=== PATIENT | male | born 1975 | race Caucasian/White ===

== ENCOUNTER 2018-03-12 08:41 | Inpatient (IN) | payer MEDICARE, MEDICAID, SELFPAY ==
[2018-03-12] VITALS (13 sets, daily range): BP systolic 156–170; BP diastolic 92–113; PULSE 83–100; RESP 14–20; TEMP 36.6–37.1; O2SAT 92–98; BMI 32.3; BMI 32.1
--- NOTE | 2018-03-12 08:47 | ED.RN ---
PT STATES AFTER TRIAGE THAT OCCASSIONALLY HAS CHEST PRESSURE. EKG CALLED FOR PT MOVED BACK TO A ROOM
--- NOTE | 2018-03-12 08:58 | EKG12_ITS ---
Test Reason : CHEST PAIN Blood Pressure : / mmHG Vent. Rate : 090 BPM Atrial Rate : 090 BPM P-R Int : 158 ms QRS Dur : 116 ms QT Int : 402 ms P-R-T Axes : 041 -11 108 degrees QTc Int : 491 ms Normal sinus rhythm [address] & T wave abnormality, consider lateral ischemia Prolonged QT Abnormal ECG Confirmed by MANI BAILEY, ABBEY ([id number]), photograph editor RACHNA COWART ([id number]) on 03/14/2018 4:18:24 PM Referred By: KARINE Confirmed By:ABBEY SINGLETON MD
--- NOTE | 2018-03-12 09:07 | ED.VISSUMM ---
- ER Visit Summary Date of Service: 03/12/18 Chief Complaint: Shortness of breath History of Present Illness: The patient is a 42 M who presents with shortness of breath that has been getting worse over the past few days. Patient states that has been constant over the past few days. Patient states it is worse when he lay flat. Patient states it feels similar to prior episodes of congestive heart failure. Patient admits to some intermittent leg swelling. Patient has a history of kidney failure and congestive heart failure. Patient takes dialysis 3 days a week. Patient admits to a cough but denies any sputum. Patient denies any fevers or chills. Patient denies any chest pain. Physical Examination: Vital signs are stable. Patient is afebrile. Patient is in no acute distress. Oral mucosa is pink and moist. Neck is supple. Trachea is midline. There is no JVD noted. Heart was regular rate and rhythm. Lungs are clear and equal bilaterally. There is good respiratory effort noted. Abdomen is soft. Bowel sounds are normal. There is no tenderness. There is no rebound or guarding noted. Cranial nerves II through XII are intact. There are no focal motor or sensory deficits noted. The remaining physical exam is within normal limits. Test Results: EKG shows a normal sinus rhythm with a rate of 90. There is T wave inversion noted in the lateral leads. This is new compared to previous EKG dated 12/14/2016. Creatinine was elevated at 10.3. Electrolytes were normal. CBC was essentially within normal limits. Troponin was indeterminate. BNP was slightly elevated at 1366.1. PA and lateral chest x-ray showed mild congestive heart failure and pulmonary vascular congestion. Emergency Department Course and Treatment: Patient was given nitroglycerin paste and Lasix. Given the new T wave inversion and indeterminate troponin I felt that the patient should be admitted for further evaluation. Case was discussed with Dr. Reid. He will admit the patient to his service. He requested me to call his back closer to see if he could get dialysis today. Case was discussed with Dr. Vail. He will come in and see the patient in the hospital. Patient understood and was agreeable with the plan. All questions were answered. Disposition: Admit to hospital Impression: Congestive heart failure This note was generated with [employer] software. It may contain incorrect words, spelling, and punctuation that were not noted in review of the chart prior to signing ED Disposition - Plan for ED Patient: Disposition: Acute Care [facility] Chief Complaint: Shortness of Breath
[2018-03-12 09:13] LABS: Absolute Lymphocyte Count 1.09 X10^3/ul (0.83-4.51); Absolute Neutrophil Count 8.5 X10^3/uL (2.0-7.7); Basophil# 0.03 X10^3/uL; Basophil% 0.3 % (0-1); Eosinophil# 0.19 X10^3/uL; Eosinophils% 1.8 % (0-5); Hematocrit 25.7 % (40-54); Hemoglobin 8.3 g/dl (13.0-16.5); Lymphocyte # 1.09 X10^3/ul (4.0); Lymphocyte % 10.2 % (19-41); Mean Corp Hgb Conc 32.3 g/gl (32-36); Mean Corpuscular Hgb 31.1 pg (27.0-32.0); Mean Corpuscular Volume 96.3 fL (80-94); Mean Platelet Vol. 8.4 fl (6.2-12.0); Monocyte# 0.91 X10^3/uL; Monocyte% 8.5 % (0-10); Neutrophil # 8.45 X10^3/uL (2.7-7.7); Neutrophil % 78.8 % (47-70); POSITIVE COUNT NO; POSITIVE DIFFERENTIAL NO; POSITIVE MORPHOLOGY NO; Platelet Count 169 K/mm3 (150-450); RBC Distribution Width SD 45.6 fl (35.1-43.9); Red Blood Count 2.67 M/mm3 (4.6-6.2); White Blood Count 10.7 K/mm3 (4.4-11.0)
--- NOTE | 2018-03-12 09:22 | RAD_ITS ---
STUDY: X-RAY CHEST REASON FOR EXAM: Male, 42 years old. Shortness of breath. TECHNIQUE: PA and lateral views. COMPARISON: 12/14/2016. FINDINGS: Mild pulmonary interstitial edema. No confluent infiltrates. There is no demonstrated pleural abnormality. Mild cardiomegaly. Normal mediastinum and roberto. Pulmonary vascular congestion. Normal visualized aortic arch and descending thoracic aorta. Normal visualized thoracic spine. Normal visualized ribs, clavicles, and shoulders. There is no demonstrated abnormality of the visualized soft tissue structures of the upper abdomen. RAD/Chest PA and Lateral IMPRESSION: 1. Mild acute CHF with mild pulmonary interstitial edema. 2. No other additional findings or changes when compared to 12/14/2016. Electronically Signed: Jimmy Henderson MD at 9:43 EST , Service support ,
[2018-03-12 09:34] LABS: Anion Gap 10 (5-15); BUN 48 mg/dL (7-18); BUN/Creat Ratio 4.7 RATIO (10-20); Calcium,Total 8.1 mg/dL (8.5-10.1); Chloride 95 mmol/L (98-107); EST Glomerular Filtration Rate 6 mL/min (>60); Est Glom Filt Rate - Afr Amer 7 mL/min (>60); Estimated Creatinine Clearance 9.75 ml/min; Glucose 120 mg/dL (74-106); Potassium 3.7 mmol/L (3.5-5.1); Sodium Level 136 mmol/L (136-145)
[2018-03-12 09:41] LABS: BNP,B-Type NATRIURETIC PEPTIDE 1366.1 pg/mL (0-100)
--- NOTE | 2018-03-12 10:29 | NURSING ---
DR BEBE MILTON
[2018-03-12] MEDS: Nitroglycerin Oint 1 INCH PACKET TRANSDERM. (10:36)
[2018-03-12] MEDS: Furosemide 20 MG/2 ML VIAL IV (10:36)
--- NOTE | 2018-03-12 10:37 | NURSING ---
PCU CHF KITTOE
--- NOTE | 2018-03-12 10:52 | NURSING ---
DR MILLS, NEPHROLOGY, PAGED
--- NOTE | 2018-03-12 11:10 | PCM.HP.STD ---
Problem List (1) CHF (congestive heart failure) Status: Acute (2) HTN (hypertension) Status: Chronic (3) Obesity Status: Chronic (4) Poor dental hygiene Status: Chronic (5) Renal transplant recipient Status: Chronic (6) ESRD on dialysis Status: Chronic (7) Tobacco dependence Status: Chronic History of Present Illness Date of Admission: 03/12/18 Chief Complaint: Shortness of breath The patient is a 42 year old M with past medical history significant for end-stage renal disease on hemodialysis, retention who presented with shortness of breath. Patient has dialysis session was 2 days prior to his admission. Patient did notice increasing shortness of breath with minimal activity. He also did notice edema involving both lower extremities. He subsequently presented to the emergency department where chest x-ray demonstrated mild pulmonary interstitial edema consistent with CHF. Patient was started on Lasix his heel sorter contacted and admitted to a monitored bed for further management. Of note patient was also found to have elevated troponin he however denied any chest pain. Past Medical History Past Medical History (Chronic Problems): Chronic Problems ESRD on dialysis (Chronic) Tobacco dependence (Chronic) Renal transplant recipient (Chronic) Obesity (Chronic) HTN (hypertension) (Chronic) Poor dental hygiene (Chronic) Allergies Cusfdif-Chz-Wtr Reductase Inhibitor Allergy (Verified 03/12/18 08:44) Other Home Medications: Ambulatory Orders Medication Instructions Recorded Amlodipine [Norvasc] 5 mg PO DAILY 03/12/18 Calcium Acetate 667 mg PO TID 03/12/18 Carvedilol 25 mg PO 03/12/18 Cinacalcet HCl [Sensipar] 30 mg PO BID 03/12/18 Clonidine 1 each TD 03/12/18 Losartan Potassium 50 mg PO 03/12/18 Nut.tx,Impaired Renal Fxn,[place]hey 400 gm PO 03/12/18 [Emily Start] Surgical History: - - History of renal transplant Smoking Status: Current every day smoker - *Family History Maternal History Items: No pertinent history Paternal History Items: Cancer - Father of stomach cancer, No pertinent history Review of Systems Constitutional: Denies: Anorexia, Chills, Fever, Night Sweats, Weight Change HEENT: Denies: Head Aches, Sinus Congestion, Sinus Drainage Cardiovascular: Reports: Edema. Denies: Chest Pain, Orthopnea, Palpitations Respiratory: Reports: Shortness of Breath. Denies: Cough, Shortness of breath at rest Gastrointestinal: Denies: Abdominal Pain, Hematemesis, Hematochezia, Nausea, Melena Genitourinary: Denies: Dysuria, Frequency, Hematuria, Urgency Musculoskeletal: Denies: Joint Pain, Joint Tenderness Skin: Denies: Rash Neurological: Denies: Focal weakness, Numbness, Tingling Psychiatric: Denies: Homicidal Ideations, Suicidal Ideations Hematologic/ Lymphatic: Denies: Easy Bruising, Easy Bleeding VTE Information - Inpt Only VTE Present on Admission: No VTE Mechan Device Prophylaxis: Knee High MATIAS Hose VTE Pharm Prophylaxis ordered?: Yes Patient Problems: Active and Suspected Problems CHF (congestive heart failure) (Acute) Objective: GENERAL: cooperative HEENT: Atraumatic; moist oral mucosa EYES; Anicteric, Normal Conjunctiva NECK; supple, normal thyroid, RESPIRATORY: Diminished to auscultation bilaterally, CARDIOVASCULAR: Regular S1 S2, no audible murmurs GI: soft, non-tender, normoactive bowel sounds, : No Renal angle tenderness; EXTREMITIES: Bilateral trace edema, no clubbing, MUSCULOSKELETAL: No Joint Tenderness; no muscle waisting NEURO: Awake; no lateralizing signs. SKIN: No Rash PSYCH; Normal affect - Physical Exam Vital Signs Temp Pulse Resp BP Pulse Ox 97.9 F 86 19 H 166/113 H 92 03/12/18 08:42 03/12/18 10:42 03/12/18 10:42 03/12/18 10:42 03/12/18 10:42 Oxygen Delivery Method Room Air Weight: 102.058 kg Body Mass Index (BMI) 32.3 Laboratory Tests Past 24 Hrs 03/12/18 03/12/18 03/12/18 09:00 09:00 09:00 WBC 10.7 RBC 2.67 L Hgb 8.3 L Hct 25.7 L MCV 96.3 H MCH 31.1 MCHC 32.3 RDW 13.0 RDW Differential 45.6 H Plt Count 169 MPV 8.4 Immature Gran % (Auto) 0.400 Neut % (Auto) 78.8 H Lymph % (Auto) 10.2 L [place] % (Auto) 8.5 Eos % (Auto) 1.8 Baso % (Auto) 0.3 Absolute Neuts (auto) 8.5 H Absolute Lymphs (auto) 1.09 Total Counted Not Reportable Sodium 136 Potassium 3.7 Chloride 95 L Carbon Dioxide 31.0 Anion Gap 10 BUN 48 H Creatinine 10.30 H* Estim Creat Clear Calc 9.75 Est GFR (MDRD) Af Amer 7 L Est GFR (MDRD) Non-Af 6 L BUN/Creatinine Ratio 4.7 L Glucose 120 H Calcium 8.1 L Troponin I 0.052 H B-Natriuretic Peptide 1366.1 H Assessment/Plan All Active Problems CHF (congestive heart failure) (Acute) Metabolic acidosis (Resolved) Strep pharyngitis (Resolved) Acute sialoadenitis (Resolved) Severe sepsis (Resolved) Acute on chronic renal failure (Resolved) Patient is a 42-year-old gentleman with past medical history significant for end-stage renal disease currently on hemodialysis presented with progressive shortness of breath. Checks x-ray obtained on admission demonstrated pulmonary interstitial edema 1. Acute congestive heart failure suspected to be diastolic dysfunction: Patient has been admitted to a monitored bed started on Lasix drip. 2D echo ordered for EF assessment. Consultation placed to nephrology to assist in managing patient fluid overload with dialysis 2. End-stage renal disease with previous history of kidney transplant from living donor. Patient currently on hemodialysis on Mondays, Wednesdays and Tuesdays as stated above consultation was placed to patient's primary heel sorter 3. Elevated troponin suspected to be secondary to demand ischemia from patient CHF in addition to decreased clearance from patient renal failure patient currently does not have any chest pain EKG did not exhibit any acute changes. Admitted to monitored bed for continuous telemetry monitoring. Ordered serial cardiac enzymes as part of patient's evaluation 4. Hypertension-blood pressure controlled, home medications continued with dose adjustment as needed 5. Tobacco dependence counseled on cessation, offered nicotine patch for tobacco cravings 6. Obesity with BMI of 32 7. DVT prophylaxis SC heparin Code Visit Inpatient E&M: 58087 Init Hosp L3
--- NOTE | 2018-03-12 11:15 | HP.PCM_ITS ---
Problem List (1) CHF (congestive heart failure) Status: Acute (2) HTN (hypertension) Status: Chronic (3) Obesity Status: Chronic (4) Poor dental hygiene Status: Chronic (5) Renal transplant recipient Status: Chronic (6) ESRD on dialysis Status: Chronic (7) Tobacco dependence Status: Chronic History of Present Illness Date of Admission: 03/12/18 Chief Complaint: Shortness of breath The patient is a 42 year old M with past medical history significant for end- stage renal disease on hemodialysis, retention who presented with shortness of breath. Patient has dialysis session was 2 days prior to his admission. Patient did notice increasing shortness of breath with minimal activity. He also did notice edema involving both lower extremities. He subsequently presented to the emergency department where chest x-ray demonstrated mild pulmonary interstitial edema consistent with CHF. Patient was started on Lasix his face worker contacted and admitted to a monitored bed for further management. Of note patient was also found to have elevated troponin he however denied any chest pain. Past Medical History Past Medical History (Chronic Problems): Chronic Problems ESRD on dialysis (Chronic) Tobacco dependence (Chronic) Renal transplant recipient (Chronic) Obesity (Chronic) HTN (hypertension) (Chronic) Poor dental hygiene (Chronic) Allergies Tpobrfw-Omg-Yhm Reductase Inhibitor Allergy (Verified 03/12/18 08:44) Other Home Medications: Ambulatory Orders Medication Instructions Recorded Amlodipine [Norvasc] 5 mg PO DAILY 03/12/18 Calcium Acetate 667 mg PO TID 03/12/18 Carvedilol 25 mg PO 03/12/18 Cinacalcet HCl [Sensipar] 30 mg PO BID 03/12/18 Clonidine 1 each TD 03/12/18 Losartan Potassium 50 mg PO 03/12/18 Nut.tx,Impaired Renal Fxn,Whey 400 gm PO 03/12/18 [Emily Start] Surgical History: - - History of renal transplant Smoking Status: Current every day smoker - *Family History Maternal History Items: No pertinent history Paternal History Items: Cancer - Father of stomach cancer, No pertinent history Review of Systems Constitutional: Denies: Anorexia, Chills, Fever, Night Sweats, Weight Change HEENT: Denies: Head Aches, Sinus Congestion, Sinus Drainage Cardiovascular: Reports: Edema. Denies: Chest Pain, Orthopnea, Palpitations Respiratory: Reports: Shortness of Breath. Denies: Cough, Shortness of breath at rest Gastrointestinal: Denies: Abdominal Pain, Hematemesis, Hematochezia, Nausea, Melena Genitourinary: Denies: Dysuria, Frequency, Hematuria, Urgency Musculoskeletal: Denies: Joint Pain, Joint Tenderness Skin: Denies: Rash Neurological: Denies: Focal weakness, Numbness, Tingling Psychiatric: Denies: Homicidal Ideations, Suicidal Ideations Hematologic/ Lymphatic: Denies: Easy Bruising, Easy Bleeding VTE Information - Inpt Only VTE Present on Admission: No VTE Mechan Device Prophylaxis: Knee High MATIAS Hose VTE Pharm Prophylaxis ordered?: Yes Patient Problems: Active and Suspected Problems CHF (congestive heart failure) (Acute) Objective: GENERAL: cooperative HEENT: Atraumatic; moist oral mucosa EYES; Anicteric, Normal Conjunctiva NECK; supple, normal thyroid, RESPIRATORY: Diminished to auscultation bilaterally, CARDIOVASCULAR: Regular S1 S2, no audible murmurs GI: soft, non-tender, normoactive bowel sounds, : No Renal angle tenderness; EXTREMITIES: Bilateral trace edema, no clubbing, MUSCULOSKELETAL: No Joint Tenderness; no muscle waisting NEURO: Awake; no lateralizing signs. SKIN: No Rash PSYCH; Normal affect - Physical Exam Vital Signs Temp Pulse Resp BP Pulse Ox 97.9 F 86 19 H 166/113 H 92 03/12/18 08:42 03/12/18 10:42 03/12/18 10:42 03/12/18 10:42 03/12/18 10:42 Oxygen Delivery Method Room Air Weight: 102.058 kg Body Mass Index (BMI) 32.3 Laboratory Tests Past 24 Hrs 03/12/18 03/12/18 03/12/18 09:00 09:00 09:00 WBC 10.7 RBC 2.67 L Hgb 8.3 L Hct 25.7 L MCV 96.3 H MCH 31.1 MCHC 32.3 RDW 13.0 RDW Differential 45.6 H Plt Count 169 MPV 8.4 Immature Gran % (Auto) 0.400 Neut % (Auto) 78.8 H Lymph % (Auto) 10.2 L [place] % (Auto) 8.5 Eos % (Auto) 1.8 Baso % (Auto) 0.3 Absolute Neuts (auto) 8.5 H Absolute Lymphs (auto) 1.09 Total Counted Not Reportable Sodium 136 Potassium 3.7 Chloride 95 L Carbon Dioxide 31.0 Anion Gap 10 BUN 48 H Creatinine 10.30 H* Estim Creat Clear Calc 9.75 Est GFR (MDRD) Af Amer 7 L Est GFR (MDRD) Non-Af 6 L BUN/Creatinine Ratio 4.7 L Glucose 120 H Calcium 8.1 L Troponin I 0.052 H B-Natriuretic Peptide 1366.1 H Assessment/Plan All Active Problems CHF (congestive heart failure) (Acute) Metabolic acidosis (Resolved) Strep pharyngitis (Resolved) Acute sialoadenitis (Resolved) Severe sepsis (Resolved) Acute on chronic renal failure (Resolved) Patient is a 42-year-old gentleman with past medical history significant for end-stage renal disease currently on hemodialysis presented with progressive shortness of breath. Checks x-ray obtained on admission demonstrated pulmonary interstitial edema 1. Acute congestive heart failure suspected to be diastolic dysfunction: Patient has been admitted to a monitored bed started on Lasix drip. 2D echo ordered for EF assessment. Consultation placed to nephrology to assist in managing patient fluid overload with dialysis 2. End-stage renal disease with previous history of kidney transplant from living donor. Patient currently on hemodialysis on Mondays, Wednesdays and Tuesdays as stated above consultation was placed to patient's primary face worker 3. Elevated troponin suspected to be secondary to demand ischemia from patient CHF in addition to decreased clearance from patient renal failure patient currently does not have any chest pain EKG did not exhibit any acute changes. Admitted to monitored bed for continuous telemetry monitoring. Ordered serial cardiac enzymes as part of patient's evaluation 4. Hypertension-blood pressure controlled, home medications continued with dose adjustment as needed 5. Tobacco dependence counseled on cessation, offered nicotine patch for tobacco cravings 6. Obesity with BMI of 32 7. DVT prophylaxis SC heparin Code Visit Inpatient E&M: 50452 Init Hosp L3
--- NOTE | 2018-03-12 11:26 | ECHOD_ITS ---
Reason For Study: CHF Procedure This was a 2D Doppler, Color Flow transthoracic echocardiogram. Exam performed portable in patient room. Left Ventricle Normal LV size. Apical false tendon noted. Moderate concentric left ventricular hypertrophy. The estimated ejection fraction is 40 %. Mild global left ventricular systolic dysfunction. Compared to previous study, the left ventricular systolic function has worsened.. There is mild global hypokinesis of the left ventricle. Atria The left atrium is moderately enlarged. Normal right atrium. Mitral Valve Mild (1+) eccentric mitral valve insufficiency. Tricuspid Valve Normal tricuspid valve. Mild to moderate (1-2+) tricuspid valve insufficiency. Pulmonary artery systolic pressure is 61 mmHg. Moderate pulmonary hypertension. Aortic Valve Normal aortic valve. Trisinus/trileaflet aortic valve. Pulmonic Valve Normal pulmonic valve. Great Vessels Normal aortic root. The pulmonary artery is normal size. Normal inferior vena cava. Pericardium/Pleural No pericardial effusion. MMode/2D Measurements & Calculations LVIDd: 5.8 cm IVSd: 1.3 cm Ao root diam: 3.3 cm LVIDs: 4.7 cm LVPWd: 1.4 cm LA dimension: 4.4 cm RVDd: 4.4 cm FS: 19.9 % LAV(MOD-bp): 107.0 ml LVAd ap4: 50.1 cm2 SV(MOD-sp4): 103.7 ml LAV(MOD-bp) Indexed: 49.0 ml/m2 EDV(MOD-sp4): 222.8 ml LAV(MOD-sp2): 110.3 ml EDV(sp4-el): 232.7 ml LAV(MOD-sp4): 96.6 ml LVAs ap4: 33.9 cm2 ESV(MOD-sp4): 119.1 ml ESV(sp4-el): 120.5 ml EF(MOD-sp4): 46.5 % EF(sp4-el): 48.2 % SV(sp4-el): 112.2 ml LA A4 area: 28.1 cm2 RA A4 area: 19.8 cm2 Time Measurements MV dec time: 0.14 sec Doppler Measurements & Calculations MV E max semaj: 129.6 cm/sec Lat Peak E' Semaj: 9.0 cm/sec Med Peak E' Semaj: 6.2 cm/sec MV A max semaj: 51.6 cm/sec E/E' lat: 14.3 E/E' med: 20.9 MV E/A: 2.5 MV V2 max: 146.4 cm/sec MV P1/2t max semaj: 148.9 cm/sec Ao V2 max: 145.6 cm/sec MV max P.6 mmHg MV P1/2t: 47.8 msec Ao max P.5 mmHg MV V2 mean: 73.3 cm/sec Ao V2 mean: 88.1 cm/sec MV mean P.7 mmHg MV dec slope: 912.7 cm/sec2 Ao mean P.7 mmHg MV V2 VTI: 25.5 cm MVA(P1/2t): 4.6 cm2 Ao V2 VTI: 25.1 cm LV V1 max: 117.4 cm/sec MR max semaj: 599.8 cm/sec PA V2 max: 115.6 cm/sec LV V1 max P.5 mmHg MR max P.9 mmHg LV V1 mean P.6 mmHg LV V1 mean: 73.8 cm/sec LV V1 VTI: 21.0 cm TR max esmaj: 376.0 cm/sec TR max P.5 mmHg Interpretation Summary Normal LV size. Moderate concentric left ventricular hypertrophy. The estimated ejection fraction is 40 %. Compared to previous study, the left ventricular systolic function has worsened.. Pulmonary artery systolic pressure is 61 mmHg. Moderate pulmonary hypertension. Ordering Physician: Candelario Reid Performed By: Bi Quan RCS
[2018-03-12] MEDS: amLODIPine 5 MG Tablet PO (13:37)
[2018-03-12] MEDS: Carvedilol 25 MG Tablet PO ×2 (13:37→21:42)
[2018-03-12] MEDS: Cinacalcet HCl 30 MG Tablet PO ×2 (13:38→21:42)
[2018-03-12] MEDS: Heparin Injection (Vial) 5,000 UNIT/ML VIAL 5000 UNIT SC ×2 (13:41→21:42)
--- NOTE | 2018-03-12 16:25 | PCM.CONS.R ---
Problem List (1) ESRD on dialysis Status: Chronic Consultation - Renal 03/12/18 PCP/ Referring MD: Requesting physician: [] Primary care physician: No Primary Care Phys Reason for Consultation:: ESRD - History of Present Illness History of Present Illness: The patient is a 42 year old M ESRD MWF [facility] 3 L out admitted with mild to moderate SOB on oxygen sating well. - Allergies Allergies: Allergies Qmrabuz-Wdo-Wtd Reductase Inhibitor Allergy (Verified 03/12/18 08:44) Other - Current Medications Current Medications: Current Medications Acetaminophen (Tylenol) 650 mg PO Q6H PRN PRN PRN Reason: Mild Pain (scale 0-3)/T>100.7 Amlodipine Besylate (Norvasc) 5 mg PO DAILY [facility] Last Admin: 03/12/18 13:37 Dose: 5 mg Calcium Acetate (Phoslo Gel Cap) 667 mg PO TIDCM [facility] Last Admin: 03/12/18 13:38 Dose: Not Given Carvedilol (Coreg) 25 mg PO BID [facility] Last Admin: 03/12/18 13:37 Dose: 25 mg Cinacalcet (Sensipar) 30 mg PO BID [facility] Last Admin: 03/12/18 13:38 Dose: 30 mg Heparin Sodium (Porcine) (Heparin Na) 5,000 unit SC Q8 [facility] Last Admin: 03/12/18 13:41 Dose: 5,000 unit Furosemide 500 mg/ (Miscellaneous Information) 50 mls @ 1 mls/hr CONT INF .Q50H [facility] Last Admin: 03/12/18 12:01 Dose: 1 mls/hr Magnesium Hydroxide (Milk Of Magnesia) 30 ml PO DAILY PRN PRN PRN Reason: Constipation Sodium Chloride () 5 - 30 ml IV UD PRN PRN Reason: SALINE FLUSH - Past Medical History Past Medical History (Chronic Problems): Chronic Problems ESRD on dialysis (Chronic) Tobacco dependence (Chronic) Renal transplant recipient (Chronic) Obesity (Chronic) HTN (hypertension) (Chronic) Poor dental hygiene (Chronic) - Past Surgical History Surgical History: - - History of renal transplant - Social History Smoking Status: Current every day smoker - Family History Maternal History Items: No pertinent history Paternal History Items: Cancer - Father of stomach cancer, No pertinent history Review of Systems Constitutional: Denies: Chills, Fever, Weight Change HEENT: Denies: Head Aches, Sinus Congestion, Sinus Drainage Cardiovascular: Reports: Chest Pain, Chest Pressure, Chest Tightness, Orthopnea Respiratory: Reports: Shortness of Breath Gastrointestinal: Denies: Abdominal Pain, Nausea, Vomiting Genitourinary: Denies: Dysuria Musculoskeletal: Denies: Joint Pain, Joint Tenderness Skin: Denies: Rash, Wounds Neurological: Denies: Numbness, Tingling, Focal weakness Psychiatric: Denies: Anxiety, Depression, Homicidal Ideations, Suicidal Ideations Hematologic/ Lymphatic: Denies: Easy Bruising, Easy Bleeding Patient Problems: Active and Suspected Problems CHF (congestive heart failure) (Acute) - Physical Exam General: Alert, Oriented x3, Cooperative HEENT: Atraumatic Neck: Supple Lungs: Rales, Short of Breath Cardiovascular: Regular rate Abdomen: Bowel Sounds Present Vital Signs Temp Pulse Resp BP Pulse Ox 98.3 F 90 16 163/107 H 92 03/12/18 11:30 03/12/18 14:53 03/12/18 11:30 03/12/18 11:30 03/12/18 11:30 Oxygen Delivery Method Room Air Weight: 101.6 kg Body Mass Index (BMI) 32.1 Intake and Output for Last 24 Hours 03/10/18 03/11/18 03/12/18 23:59 23:59 23:59 Intake Total 50 / 50 Balance 50 / 50 Laboratory Tests Past 24 Hrs 03/12/18 03/12/18 03/12/18 09:00 09:00 09:00 WBC 10.7 RBC 2.67 L Hgb 8.3 L Hct 25.7 L MCV 96.3 H MCH 31.1 MCHC 32.3 RDW 13.0 RDW Differential 45.6 H Plt Count 169 MPV 8.4 Immature Gran % (Auto) 0.400 Neut % (Auto) 78.8 H Lymph % (Auto) 10.2 L [place] % (Auto) 8.5 Eos % (Auto) 1.8 Baso % (Auto) 0.3 Absolute Neuts (auto) 8.5 H Absolute Lymphs (auto) 1.09 Total Counted Not Reportable Sodium 136 Potassium 3.7 Chloride 95 L Carbon Dioxide 31.0 Anion Gap 10 BUN 48 H Creatinine 10.30 H* Estim Creat Clear Calc 9.75 Est GFR (MDRD) Af Amer 7 L Est GFR (MDRD) Non-Af 6 L BUN/Creatinine Ratio 4.7 L Glucose 120 H Calcium 8.1 L Troponin I 0.052 H B-Natriuretic Peptide 1366.1 H 03/12/18 03/12/18 11:46 15:02 WBC RBC Hgb Hct MCV MCH MCHC RDW RDW Differential Plt Count MPV Immature Gran % (Auto) Neut % (Auto) Lymph % (Auto) [place] % (Auto) Eos % (Auto) Baso % (Auto) Absolute Neuts (auto) Absolute Lymphs (auto) Total Counted Sodium Potassium Chloride Carbon Dioxide Anion Gap BUN Creatinine Estim Creat Clear Calc Est GFR (MDRD) Af Amer Est GFR (MDRD) Non-Af BUN/Creatinine Ratio Glucose Calcium Troponin I 0.062 H Pending B-Natriuretic Peptide Assessment/Plan All Active Problems CHF (congestive heart failure) (Acute) Metabolic acidosis (Resolved) Strep pharyngitis (Resolved) Acute sialoadenitis (Resolved) Severe sepsis (Resolved) Acute on chronic renal failure (Resolved) ESRD will do IUF/HD for 2 hrs try to take 2L and resume HD again in am. HTN controlled CKD MBD resume binders Anemia on CHRISTOPHER
--- NOTE | 2018-03-12 16:28 | CON.PCM_ITS ---
Problem List (1) ESRD on dialysis Status: Chronic Consultation - Renal 03/12/18 PCP/ Referring MD: Requesting physician: [] Primary care physician: No Primary Care Phys Reason for Consultation:: ESRD - History of Present Illness History of Present Illness: The patient is a 42 year old M ESRD MWF [facility] HD [facility] took 3 L out admitted with mild to moderate SOB on oxygen sating well. - Allergies Allergies: Allergies Rbkkwev-Ktr-Xhj Reductase Inhibitor Allergy (Verified 03/12/18 08:44) Other - Current Medications Current Medications: Current Medications Acetaminophen (Tylenol) 650 mg PO Q6H PRN PRN PRN Reason: Mild Pain (scale 0-3)/T>100.7 Amlodipine Besylate (Norvasc) 5 mg PO DAILY [facility] Last Admin: 03/12/18 13:37 Dose: 5 mg Calcium Acetate (Phoslo Gel Cap) 667 mg PO TIDCM [facility] Last Admin: 03/12/18 13:38 Dose: Not Given Carvedilol (Coreg) 25 mg PO BID [facility] Last Admin: 03/12/18 13:37 Dose: 25 mg Cinacalcet (Sensipar) 30 mg PO BID [facility] Last Admin: 03/12/18 13:38 Dose: 30 mg Heparin Sodium (Porcine) (Heparin Na) 5,000 unit SC Q8 [facility] Last Admin: 03/12/18 13:41 Dose: 5,000 unit Furosemide 500 mg/ (Miscellaneous Information) 50 mls @ 1 mls/hr CONT INF .Q50H [facility] Last Admin: 03/12/18 12:01 Dose: 1 mls/hr Magnesium Hydroxide (Milk Of Magnesia) 30 ml PO DAILY PRN PRN PRN Reason: Constipation Sodium Chloride () 5 - 30 ml IV UD PRN PRN Reason: SALINE FLUSH - Past Medical History Past Medical History (Chronic Problems): Chronic Problems ESRD on dialysis (Chronic) Tobacco dependence (Chronic) Renal transplant recipient (Chronic) Obesity (Chronic) HTN (hypertension) (Chronic) Poor dental hygiene (Chronic) - Past Surgical History Surgical History: - - History of renal transplant - Social History Smoking Status: Current every day smoker - Family History Maternal History Items: No pertinent history Paternal History Items: Cancer - Father of stomach cancer, No pertinent history Review of Systems Constitutional: Denies: Chills, Fever, Weight Change HEENT: Denies: Head Aches, Sinus Congestion, Sinus Drainage Cardiovascular: Reports: Chest Pain, Chest Pressure, Chest Tightness, Orthopnea Respiratory: Reports: Shortness of Breath Gastrointestinal: Denies: Abdominal Pain, Nausea, Vomiting Genitourinary: Denies: Dysuria Musculoskeletal: Denies: Joint Pain, Joint Tenderness Skin: Denies: Rash, Wounds Neurological: Denies: Numbness, Tingling, Focal weakness Psychiatric: Denies: Anxiety, Depression, Homicidal Ideations, Suicidal Ideations Hematologic/ Lymphatic: Denies: Easy Bruising, Easy Bleeding Patient Problems: Active and Suspected Problems CHF (congestive heart failure) (Acute) - Physical Exam General: Alert, Oriented x3, Cooperative HEENT: Atraumatic Neck: Supple Lungs: Rales, Short of Breath Cardiovascular: Regular rate Abdomen: Bowel Sounds Present Vital Signs Temp Pulse Resp BP Pulse Ox 98.3 F 90 16 163/107 H 92 03/12/18 11:30 03/12/18 14:53 03/12/18 11:30 03/12/18 11:30 03/12/18 11:30 Oxygen Delivery Method Room Air Weight: 101.6 kg Body Mass Index (BMI) 32.1 Intake and Output for Last 24 Hours 03/10/18 03/11/18 03/12/18 23:59 23:59 23:59 Intake Total 50 / 50 Balance 50 / 50 Laboratory Tests Past 24 Hrs 03/12/18 03/12/18 03/12/18 09:00 09:00 09:00 WBC 10.7 RBC 2.67 L Hgb 8.3 L Hct 25.7 L MCV 96.3 H MCH 31.1 MCHC 32.3 RDW 13.0 RDW Differential 45.6 H Plt Count 169 MPV 8.4 Immature Gran % (Auto) 0.400 Neut % (Auto) 78.8 H Lymph % (Auto) 10.2 L [place] % (Auto) 8.5 Eos % (Auto) 1.8 Baso % (Auto) 0.3 Absolute Neuts (auto) 8.5 H Absolute Lymphs (auto) 1.09 Total Counted Not Reportable Sodium 136 Potassium 3.7 Chloride 95 L Carbon Dioxide 31.0 Anion Gap 10 BUN 48 H Creatinine 10.30 H* Estim Creat Clear Calc 9.75 Est GFR (MDRD) Af Amer 7 L Est GFR (MDRD) Non-Af 6 L BUN/Creatinine Ratio 4.7 L Glucose 120 H Calcium 8.1 L Troponin I 0.052 H B-Natriuretic Peptide 1366.1 H 03/12/18 03/12/18 11:46 15:02 WBC RBC Hgb Hct MCV MCH MCHC RDW RDW Differential Plt Count MPV Immature Gran % (Auto) Neut % (Auto) Lymph % (Auto) [place] % (Auto) Eos % (Auto) Baso % (Auto) Absolute Neuts (auto) Absolute Lymphs (auto) Total Counted Sodium Potassium Chloride Carbon Dioxide Anion Gap BUN Creatinine Estim Creat Clear Calc Est GFR (MDRD) Af Amer Est GFR (MDRD) Non-Af BUN/Creatinine Ratio Glucose Calcium Troponin I 0.062 H Pending B-Natriuretic Peptide Assessment/Plan All Active Problems CHF (congestive heart failure) (Acute) Metabolic acidosis (Resolved) Strep pharyngitis (Resolved) Acute sialoadenitis (Resolved) Severe sepsis (Resolved) Acute on chronic renal failure (Resolved) ESRD will do IUF/HD for 2 hrs try to take 2L and resume HD again in am. HTN controlled CKD MBD resume binders Anemia on CHRISTOPHER
[2018-03-12] MEDS: Calcium Acetate 667 MG Capsule PO (16:40)
[2018-03-13] VITALS (14 sets, daily range): BP systolic 147–187; BP diastolic 74–118; PULSE 76–93; RESP 18–20; TEMP 36.7–36.9; O2SAT 92–98
[2018-03-13] MEDS: Heparin Injection (Vial) 5,000 UNIT/ML VIAL 5000 UNIT SC (06:08)
[2018-03-13 06:19] LABS: Hemoglobin 8.4 g/dl (13.0-16.5); Mean Corp Hgb Conc 32.3 g/gl (32-36); Mean Corpuscular Hgb 31.2 pg (27.0-32.0); Mean Corpuscular Volume 96.7 fL (80-94); Mean Platelet Vol. 9.1 fl (6.2-12.0); Platelet Count 185 K/mm3 (150-450); RBC Distribution Width CV 12.9 % (11.6-14.6); Red Blood Count 2.69 M/mm3 (4.6-6.2); White Blood Count 10.4 K/mm3 (4.4-11.0)
[2018-03-13 06:39] LABS: Scan Indicated on CBC? Y/N NO
[2018-03-13 06:43] LABS: Anion Gap 13 (5-15); BUN 62 mg/dL (7-18); Calcium,Total 7.8 mg/dL (8.5-10.1); Chloride 95 mmol/L (98-107); EST Glomerular Filtration Rate 5 mL/min (>60); Est Glom Filt Rate - Afr Amer 6 mL/min (>60); Estimated Creatinine Clearance 8.03 ml/min; Glucose 90 mg/dL (74-106); Potassium 4.1 mmol/L (3.5-5.1); Sodium Level 136 mmol/L (136-145)
--- NOTE | 2018-03-13 07:56 | PCM.PROGNOTE ---
Patient Problems: Active and Suspected Problems CHF (congestive heart failure) (Acute) Subjective: Chief complaint: Follow-up after admission for acute probably diastolic CHF and borderline elevated troponin. Patient seen and examined. No acute events overnight. Today, he mentioned that his breathing is getting better. Swelling of both ankles are also improving. Denied chest pain, palpitation, dizziness or lightheadedness. Denied abdominal pain, nausea vomiting. He is on IV Lasix drip. His blood pressure slightly elevated, other vital signs are stable. - Physical Exam General: Alert, Oriented x3, Cooperative, No apparent distress HEENT: Atraumatic, PERRLA, EOMI, Normocephalic Oral: Moist Mucosa, No Gingival or Mucosal Lesions/ Ulcerations Neck: Supple, No JVD, Negative Carotid Bruits, Trachea Midline, Thyroid Normal Size and Texture Lungs: No wheeze, No rales, Diminished, Rhonchi, - - Decreased breath sounds bilateral, mainly at the bases. Cardiovascular: Regular rate, Regular Rhythm, Normal S1, Normal S2, PMI Normal Abdomen: Bowel Sounds Present, Soft, Non Tender, Non-Distended, No Hepato-splenomegaly Extremities: No clubbing, No cyanosis, Edema - Trace edema. Skin: No rashes, No breakdown Lymphatic: No Cervical, Supraclavicular, or Inguinal Adenopathy Neurological: Cranial nerves II-XII grossly intact, Motor Exam 5/5 strength throughout Psych/Mental Status: Normal Affect, Appropriate, Alert and oriented to time, place, person, mood and affect Vital Signs Temp Pulse Resp BP Pulse Ox 98.1 F 83 20 H 161/103 H 92 03/13/18 02:32 03/13/18 02:58 03/13/18 02:32 03/13/18 02:32 03/13/18 02:32 Oxygen Flow Rate (L/min) 2 Oxygen Delivery Method Nasal Cannula Weight: 223 lb 15.834 oz Body Mass Index (BMI) 32.1 Intake and Output for Last 24 Hours 03/11/18 03/12/18 03/13/18 23:59 23:59 23:59 Intake Total 626 / 626 662 / 662 Output Total 125 / 125 125 / 125 Balance 501 / 501 537 / 537 Laboratory Tests Past 24 Hrs 03/12/18 03/12/18 03/12/18 09:00 09:00 09:00 WBC 10.7 RBC 2.67 L Hgb 8.3 L Hct 25.7 L MCV 96.3 H MCH 31.1 MCHC 32.3 RDW 13.0 RDW Differential 45.6 H Plt Count 169 MPV 8.4 Immature Gran % (Auto) 0.400 Neut % (Auto) 78.8 H Lymph % (Auto) 10.2 L [place] % (Auto) 8.5 Eos % (Auto) 1.8 Baso % (Auto) 0.3 Absolute Neuts (auto) 8.5 H Absolute Lymphs (auto) 1.09 Total Counted Not Reportable Sodium 136 Potassium 3.7 Chloride 95 L Carbon Dioxide 31.0 Anion Gap 10 BUN 48 H Creatinine 10.30 H* Estim Creat Clear Calc 9.75 Est GFR (MDRD) Af Amer 7 L Est GFR (MDRD) Non-Af 6 L BUN/Creatinine Ratio 4.7 L Glucose 120 H Calcium 8.1 L Troponin I 0.052 H B-Natriuretic Peptide 1366.1 H 03/12/18 03/12/18 03/13/18 11:46 15:02 05:18 WBC RBC Hgb Hct MCV MCH MCHC RDW RDW Differential Plt Count MPV Immature Gran % (Auto) Neut % (Auto) Lymph % (Auto) [place] % (Auto) Eos % (Auto) Baso % (Auto) Absolute Neuts (auto) Absolute Lymphs (auto) Total Counted Sodium 136 Potassium 4.1 Chloride 95 L Carbon Dioxide 28.0 Anion Gap 13 BUN 62 H Creatinine 12.50 H* Estim Creat Clear Calc 8.03 Est GFR (MDRD) Af Amer 6 L Est GFR (MDRD) Non-Af 5 L BUN/Creatinine Ratio 5.0 L Glucose 90 Calcium 7.8 L Troponin I 0.062 H 0.050 H B-Natriuretic Peptide 03/13/18 05:18 WBC 10.4 RBC 2.69 L Hgb 8.4 L Hct 26.0 L MCV 96.7 H MCH 31.2 MCHC 32.3 RDW 12.9 RDW Differential 45.0 H Plt Count 185 MPV 9.1 Immature Gran % (Auto) Neut % (Auto) Lymph % (Auto) [place] % (Auto) Eos % (Auto) Baso % (Auto) Absolute Neuts (auto) Absolute Lymphs (auto) Total Counted Sodium Potassium Chloride Carbon Dioxide Anion Gap BUN Creatinine Estim Creat Clear Calc Est GFR (MDRD) Af Amer Est GFR (MDRD) Non-Af BUN/Creatinine Ratio Glucose Calcium Troponin I B-Natriuretic Peptide Medical Necessity - Tobacco Use Smoking Status: Current every day smoker Tobacco Use: Cigarettes Assessment/Plan All Active Problems CHF (congestive heart failure) (Acute) This is a 42 years old male patient presented to the emergency room because of worsening shortness of breath, found to have acute probably diastolic CHF and borderline elevated troponin. #1 acute probably diastolic CHF/hypoxia: He is on IV Lasix drip, continued on Coreg. He is not on REYES inhibitors because of end-stage renal disease. He is not making significant amount of urine. His symptoms improved but still requiring oxygen. His BNP was elevated. 2D echocardiogram ordered. Nephrology consulted, plan for hemodialysis today, wean off oxygen as tolerated, ambulate. #2 borderline elevated troponin: Probably due to demand ischemia. Patient denies any chest pain. EKG without acute ischemic changes. Troponin is doing down. He is on Coreg. 2D echocardiogram ordered. #3 ESRD on hemodialysis: Patient on hemodialysis on Sundays, Wednesdays and Fridays. Nephrology consulted, plan for hemodialysis today. He is on calcium acetate and cinacalcet. #4 hypertension: Blood pressure is elevated. He is on Norvasc, Coreg and Lasix drip. He is going on the images at this time. Plan to monitor. #5 DVT prophylaxis: Low-risk patient, no prophylaxis indicated, ambulate. This note was generated with [employer] dictation software. It may contain incorrect words, spelling, and punctuation that were not noted in checking the note before signing. Code Visit Inpatient E&M: 16258 Subs Hosp L2
[2018-03-13] MEDS: Cinacalcet HCl 30 MG Tablet PO (08:27)
[2018-03-13] MEDS: Calcium Acetate 667 MG Capsule PO ×3 (08:27→16:26)
--- NOTE | 2018-03-13 11:52 | CASEMGMT ---
SW met w/pt for initial assessment and discharge plan. Pt receiving dialysis at present. PCP: No PCP at present, pt was seeing Dr. Haque and then stopped going once he started seeing the nephrologists. SW gave pt PCP list. Specialists: Nephrology at [facility] ([facility], [facility]). Pt has dialysis M,W,F, drives himself Preferred Pharmacy: [facility] Insurance: Medicare/Medicaid LW/POA: No LNOK: , her son Living arrangements, lives w/(65) and her son(47). Son has [place] Disease Transportation: Pt drives DME/HHC: No DME, no history of home health care. There are no homegoing needs anticipated, pt plans to return home at discharge w/support of . [employer], [employer]
--- NOTE | 2018-03-13 13:10 | DIALYSIS ---
Hemodialysis x 3.75 hours with 3K/2.5Ca bath; Removed = =-2500; LLAVF needles pulled; stasis complete; DSD applied; +bruit +thrill.
[2018-03-13] MEDS: amLODIPine 5 MG Tablet PO (15:22)
[2018-03-13] MEDS: Carvedilol 25 MG Tablet PO (15:23)
--- NOTE | 2018-03-13 16:20 | DCINST_ITS ---
- Discharge Diagnoses Current Active Problems: Current Active and Chronic Problems ESRD on dialysis (Chronic) CHF (congestive heart failure) (Acute) Tobacco dependence (Chronic) You will use the following diet at home:: Cardiac, Renal (restricted protein/sodium) Your food should be the consistency of: Regular Discharge Activity: Return to Normal Activity Weight Bearing Status: Full weight bearing Call your doctor if you observe: Fever of 101 or Higher, Shortness of breath, Dizziness, Fainting spells, Chest pain, Increased palpitations (irregular heartbeat), Uncontrolled pain Instructions: Controlling High Blood Pressure, Taking Your Blood Pressure Allergies/Adverse Reactions: Allergies Nybruqf-Lay-Frj Reductase Inhibitor Allergy (Verified 03/12/18 08:44) Other Medications to take at Discharge Calcium Acetate 667 mg PO TID 03/12/18 Carvedilol 25 mg PO BID 03/12/18 Cinacalcet HCl [Sensipar] 30 mg PO BID 03/12/18 Clonidine 1 each TD QWEEK 03/12/18 Losartan Potassium 50 mg PO BID 03/12/18 Amlodipine [Norvasc] 10 mg PO DAILY #30 tablet 03/13/18 The following prescriptions were given: Amlodipine [Norvasc] 10 mg PO DAILY #30 tablet Primary Care Physician: Care Physician,No Primary [Primary Care Provider] - Please follow up with your Primary Care Physician in: 1 week. Test Results: Test results from this visit will be discussed in further detail at your follow- up appointment, if applicable. Please Follow Up With: Yovana Lao MD When: please call his office. Please Follow Up With: Romeo Baeza MD When: 2 weeks.
--- NOTE | 2018-03-13 16:36 | DS.PCM_ITS ---
Discharge Date and Diagnosis Date of Admission: 03/12/18 Date of Discharge: 03/13/18 - Primary Discharge Diagnosis Active and Suspected Problems #1 acute diastolic CHF. #2 hypoxia. #3 borderline elevated troponin. #4 ESRD on hemodialysis. #5 uncontrolled hypertension. - Secondary Discharge Diagnosis Chronic Problems ESRD on dialysis (Chronic) Tobacco dependence (Chronic) Renal transplant recipient (Chronic) Obesity (Chronic) HTN (hypertension) (Chronic) Poor dental hygiene (Chronic) Hospital Course and Treatment Imaging Results: Clinical Impression(s) from Imaging Studies Chest X-Ray 03/12/18 09:22 IMPRESSION: 1. Mild acute CHF with mild pulmonary interstitial edema. 2. No other additional findings or changes when compared to 12/14/2016. Electronically Signed: Jimmy Henderson MD at 9:43 EST , Service support , Dr. Baeza, cardiology. Dr. Lao, nephrology. Operations: None Procedures: 2-D Echocardiogram, Dialysis, EKG Summary of Care Provided: Patient seen and examined on the day of discharge and appeared to be stable to be discharged home. After dialysis, patient felt much better, shortness of breath improved and he was able to maintain his pulse ox on room air. His blood pressure was elevated on his blood medications was adjusted. The patient is a 42 year old M admitted because of worsening shortness of breath and he was found to have acute diastolic CHF and borderline elevated troponin. His chest x-ray showed findings consistent with mild congestive heart failure. His EKG revealed no acute ischemic changes. His troponin was borderline elevated. Patient was treated with IV Lasix drip and he was not on REYES inhibitors because of end-stage renal disease. Nephrology consulted and patient underwent hemodialysis. After dialysis, patient symptoms improved and was able to came off oxygen. 2D echocardiogram done and revealed normal LV size, ejection fraction 40%, pulmonary artery pressure is 61 consistent with moderate pulmonary hypertension. Because of the slightly low ejection fraction and borderline elevated troponin, cardiology consulted. Dr. Baeza stated that his LV systolic dysfunction is due to uncontrolled hypertension. He recommended to control his blood pressure and to have a stress test done as outpatient. Patient discharged home in a stable medical condition, dose of Norvasc increased to 10 mg p.o. daily, continued on Coreg, losartan and clonidine patch, recommended to check blood pressure at least twice daily, follow-up with PCP in 1 week and follow-up with nephrology as scheduled, follow-up with cardiology in 2 weeks. - Physical Exam General: Alert, Oriented x3, Cooperative, No apparent distress HEENT: Atraumatic, PERRLA, EOMI, Normocephalic Oral: Moist Mucosa, No Gingival or Mucosal Lesions/ Ulcerations Neck: Supple, No JVD, Negative Carotid Bruits, Trachea Midline, Thyroid Normal Size and Texture Lungs: Clear to auscultation, No wheeze, No rales, Diminished, Rhonchi Cardiovascular: Regular rate, Regular Rhythm, Normal S1, Normal S2, PMI Normal Abdomen: Bowel Sounds Present, Soft, Non Tender, Non-Distended, No Hepato- splenomegaly Extremities: No clubbing, No cyanosis, Edema - Trace edema. Skin: No rashes, No breakdown Lymphatic: No Cervical, Supraclavicular, or Inguinal Adenopathy Neurological: Cranial nerves II-XII grossly intact, Motor Exam 5/5 strength throughout Psych/Mental Status: Normal Affect, Appropriate Vital Signs Temp Pulse Resp BP Pulse Ox 98.5 F 87 18 184/115 H 94 03/13/18 15:23 03/13/18 15:23 03/13/18 15:23 03/13/18 15:23 03/13/18 15:23 Oxygen Flow Rate (L/min) 2 Oxygen Delivery Method Room Air Weight: 218 lb 4.122 oz Body Mass Index (BMI) 32.1 Intake and Output for Last 24 Hours 03/11/18 03/12/18 03/13/18 23:59 23:59 23:59 Intake Total 626 / 626 662 / 662 Output Total 125 / 125 5150 / 5150 Balance 501 / 501 -4488 / -4488 Laboratory Tests Past 24 Hrs 03/13/18 03/13/18 05:18 05:18 WBC 10.4 RBC 2.69 L Hgb 8.4 L Hct 26.0 L MCV 96.7 H MCH 31.2 MCHC 32.3 RDW 12.9 RDW Differential 45.0 H Plt Count 185 MPV 9.1 Sodium 136 Potassium 4.1 Chloride 95 L Carbon Dioxide 28.0 Anion Gap 13 BUN 62 H Creatinine 12.50 H* Estim Creat Clear Calc 8.03 Est GFR (MDRD) Af Amer 6 L Est GFR (MDRD) Non-Af 5 L BUN/Creatinine Ratio 5.0 L Glucose 90 Calcium 7.8 L Discharge Activity: Return to Normal Activity Weight Bearing Status: Full weight bearing Call your doctor if you observe: Fever of 101 or Higher, Shortness of breath, Dizziness, Fainting spells, Chest pain, Increased palpitations (irregular heartbeat), Uncontrolled pain Home Medications: Medications to take at Discharge Calcium Acetate 667 mg PO TID 03/12/18 Carvedilol 25 mg PO BID 03/12/18 Cinacalcet HCl [Sensipar] 30 mg PO BID 03/12/18 Clonidine 1 each TD QWEEK 03/12/18 Losartan Potassium 50 mg PO BID 03/12/18 Amlodipine [Norvasc] 10 mg PO DAILY #30 tablet 03/13/18 Following Prescrptions Were Given to Patient: Amlodipine [Norvasc] 10 mg PO DAILY #30 tablet Primary Care Physician: Care Physician,No Primary [Primary Care Provider] - Please follow up with your Primary Care Physician in: 1 week. Please Follow Up With: Yovana Lao MD When: please call his office. Please Follow Up With: Romeo Baeza MD When: 2 weeks. Patient Instructions: Controlling High Blood Pressure, Taking Your Blood Pressure Disposition: Home Minutes spent on discharge:: 32 Patient Condition:: Stable Medical Necessity - Tobacco Use Smoking Status: Current every day smoker Tobacco Use: Cigarettes Meaningful Use Info Meaningful Use Diagnoses (Choose all that apply): CHF - CHF REYES/ARB ordered at discharge?: No Reason REYES/ARB not ordered?: Worsening renal function Documented LVEF (%): 40 Code Visit Inpatient E&M: 25371 Disch Hosp
--- NOTE | 2018-03-13 16:43 | CON.PCM_ITS ---
Reason for Consult Date of Consultation: 03/13/18 Reason for Consultation: Shortness of breath. Abnormal cardiac enzymes History of Present Illness: The patient is a 42 year old M past medical history of severe hypertension status post renal transplant in 2008 which subsequently failed and patient currently on hemodialysis. He presented to the emergency room because he was noted to be short of breath. He was scheduled and had a dialysis performed. An echocardiogram was performed to assess his left ventricular function his ejection fraction was noted to be 45%. He has had no dizziness or diaphoresis no near syncope or syncope. As part of his workup he had blood work done which demonstrated mildly abnormal cardiac enzymes. When he presented his blood pressure was noted to be approximately 180 systolic. At this particular time he appears to be stable. He was seen by nephrology as well. [] Past Medical History Allergies/Adverse Reactions: Allergies Oyzzwfj-Boo-Iay Reductase Inhibitor Allergy (Verified 03/12/18 08:44) Other Home Medications: Ambulatory Orders Medication Instructions Recorded Calcium Acetate 667 mg PO TID 03/12/18 Carvedilol 25 mg PO BID 03/12/18 Cinacalcet HCl [Sensipar] 30 mg PO BID 03/12/18 Clonidine 1 each TD QWEEK 03/12/18 Losartan Potassium 50 mg PO BID 03/12/18 Amlodipine [Norvasc] 10 mg PO DAILY #30 tablet 03/13/18 Past Medical History (Chronic Problems): Chronic Problems ESRD on dialysis (Chronic) Tobacco dependence (Chronic) Renal transplant recipient (Chronic) Obesity (Chronic) HTN (hypertension) (Chronic) Poor dental hygiene (Chronic) Surgical History: - - History of renal transplant - *Family History Maternal History Items: No pertinent history Paternal History Items: Cancer - Father of stomach cancer, No pertinent history Smoking Status: Current every day smoker Tobacco Use: Cigarettes Alcohol: None Drugs: None Review of Systems - Review of Systems General: Denies: Fever, Night Sweats, Fatigue HEENT: Denies: Vision Change Cardiovascular: Reports: Shortness of Breath, Shortness of Breath at Rest. Denies: Chest Discomfort, Orthopnea, PND, Peripheral Edema, Palpitations, Lightheadedness, Dizziness, Near Syncope, Syncope Respiratory: Denies: Cough, Sputum Production, Hemoptysis Gastrointestinal: Denies: Indigestion, Hematemesis, Hematochezia, Melena Genitourinary: Denies: Dysuria, Hematuria Muscoloskeletal: Denies: Myalgias Skin: Denies: Rash Neurological: Denies: Dizziness Psychiatric: Denies: Anxiety Endocrine: Denies: Unexplained Weight Loss Hematologic/ Lymphatic: Reports: Anemia Subjectve: Pleasant gentleman in no apparent distress Objective: Vital Signs Temp Pulse Resp BP Pulse Ox 98.5 F 87 18 169/74 H 94 03/13/18 16:35 03/13/18 16:35 03/13/18 16:35 03/13/18 16:35 03/13/18 16:35 Oxygen Flow Rate (L/min) 2 Oxygen Delivery Method Room Air Weight: 218 lb 4.122 oz Body Mass Index (BMI) 32.1 Intake and Output for Last 24 Hours 03/11/18 03/12/18 03/13/18 23:59 23:59 23:59 Intake Total 626 / 626 662 / 662 Output Total 125 / 125 5150 / 5150 Balance 501 / 501 -4488 / -4488 General: Awake, Alert, Oriented x 3 HEENT: PERRL, EOMI, Sclera Non Icteric Neck: Supple, Good ROM, No Lymph Node Enlargement Lungs: Clear to auscultation Cardiovascular: Regular Rhythm, Normal S1, Normal S2, No Murmurs, No Rubs, No Gallops Vascular: No Carotid Bruits, Normal Femoral Pulses, Normal Radial Pulses, Normal Dorsalis Pedal Pulse, Normal Posterior Tibial Pulses Abdomen: Bowel Sounds Present, Soft, Non Tender, No HSM, No Organomegaly Extremities: No Cyanosis, No Clubbing, No edema Musculoskeletal: No Erythema Skin: No Rashes Lymphatic: No Lymph Node Enlargement Neurological: No Focal Motor or Sensory Deficit 03/13/18 05:18: Sodium 136, Potassium 4.1, Chloride 95 L, Carbon Dioxide 28.0, Anion Gap 13, BUN 62 H, Creatinine 12.50 H*, Est GFR (MDRD) Af Amer 6 L, Est GFR (MDRD) Non-Af 5 L, BUN/Creatinine Ratio 5.0 L, Glucose 90, Calcium 7.8 L 03/13/18 05:18: WBC 10.4, RBC 2.69 L, Hgb 8.4 L, Hct 26.0 L, MCV 96.7 H, MCH 31.2, MCHC 32.3, RDW 12.9, RDW Differential 45.0 H, Plt Count 185, MPV 9.1 Rhythm: EKG: Normal sinus rhythm with T wave inversions noted in V4 and V5 ECHO: Global reduction in left ventricular systolic function estimated to be 45% Assessment/Plan 1. Acute diastolic heart failure * Patient presents with acute shortness of breath and is noted to have diastolic heart failure with an elevated natruretic peptide level. He underwent dialysis today and is currently feeling much better. My recommendation is to continue the current packing and adjust his dry weight as per the nephrology service. As you know he does not make any urine and therefore diuresis is not paramount here. * He does have evidence of left ventricular systolic dysfunction which I think is due to the uncontrolled hypertension. 2. Hypertension * His blood pressure is suboptimally controlled. Will leave it to nephrology to aggressively treat the above. 3. Abnormal cardiac enzymes He has mildly abnormal cardiac enzymes but with the very severe blood pressure elevation I suspect this is secondary to demand ischemia. His left ventricular ejection fraction reduction is global. I would recommend that we control his blood pressure better and then schedule him for a stress test as an outpatient. I have explained the above to him he understands and agrees to proceed. Thank you for allowing me to participate in the care of your patient. Please don't hesitate to call if any issues arise
[2018-03-13] MEDS: hydrALAZINE 20 MG/ML Vial 10 MG IV (16:56)
[2018-03-13] MEDS: 0.9% NaCl Peripheral Flush Adult/Peds IV (16:56)
--- NOTE | 2018-03-13 16:57 | PCM.PN.REN ---
Patient Problems: Active and Suspected Problems CHF (congestive heart failure) (Acute) Subjective: Pt was seen during HD session today. He is tolerating the session well No nausea No vomiting. No SOB. No CP - Physical Exam General: Alert, Oriented x3 HEENT: Atraumatic Oral: Moist Mucosa Neck: Supple, No JVD Lungs: Clear to auscultation, Normal air movement, No rhonchi Cardiovascular: Regular rate, Regular Rhythm, Normal S1, Normal S2 Abdomen: Bowel Sounds Present, Soft, Non Tender Extremities: No clubbing, No cyanosis, No edema Skin: No rashes Musculoskeletal: No Tenderness to Palpation of Joints or Extremities Lymphatic: No Cervical, Supraclavicular, or Inguinal Adenopathy Neurological: Cranial nerves II-XII grossly intact, Neuro grossly intact Psych/Mental Status: Normal Affect Vital Signs Temp Pulse Resp BP Pulse Ox 98.5 F 84 18 169/74 H 94 03/13/18 16:35 03/13/18 16:56 03/13/18 16:35 03/13/18 16:35 03/13/18 16:35 Oxygen Flow Rate (L/min) 2 Oxygen Delivery Method Room Air Weight: 99 kg Body Mass Index (BMI) 32.1 Intake and Output for Last 24 Hours 03/11/18 03/12/18 03/13/18 23:59 23:59 23:59 Intake Total 626 / 626 662 / 662 Output Total 125 / 125 5150 / 5150 Balance 501 / 501 -4488 / -4488 Laboratory Tests Past 24 Hrs 03/13/18 03/13/18 05:18 05:18 WBC 10.4 RBC 2.69 L Hgb 8.4 L Hct 26.0 L MCV 96.7 H MCH 31.2 MCHC 32.3 RDW 12.9 RDW Differential 45.0 H Plt Count 185 MPV 9.1 Sodium 136 Potassium 4.1 Chloride 95 L Carbon Dioxide 28.0 Anion Gap 13 BUN 62 H Creatinine 12.50 H* Estim Creat Clear Calc 8.03 Est GFR (MDRD) Af Amer 6 L Est GFR (MDRD) Non-Af 5 L BUN/Creatinine Ratio 5.0 L Glucose 90 Calcium 7.8 L Medical Necessity - Tobacco Use Smoking Status: Current every day smoker Tobacco Use: Cigarettes Assessment/Plan All Active Problems CHF (congestive heart failure) (Acute) 1-ESRD on MWF. Pt goes to [facility] [place] in [place] HD session :BQ 400 DQ 600 UF 3L HD access is LUE AVF 2- HTN: BP is uncontrolled. Please resume home BP at discharged. Asked the patient to monitor his BP at home 3- Acute diastolic HF. Better. Improved with UF Pt received UF session yesterday of 5L d/c lasix drip. Pt is anuric 4-Anemia: will resume CHRISTOPHER at HD unit Ok to d/c patient from nephro stand point if BP < 160/90 MINA HO MD
== END 2018-03-13 17:30 | disposition home or self-care (01) | DRG 291 ==
LOC: ED 10:25 → PCU 10:47
PROVIDERS: Admitting Provider Internal Medicine; Emergency Provider Emergency Medicine; Visit Provider Hospitalist
DX: I13.2 Hypertensive heart and chronic kidney disease with heart failure and with stage 5 chronic kidney disease, or end stage renal disease (principal); N18.6 End stage renal disease; I50.31 Acute diastolic (congestive) heart failure; T86.12 Kidney transplant failure; E66.9 Obesity, unspecified; Z99.2 Dependence on renal dialysis; F17.210 Nicotine dependence, cigarettes, uncomplicated; D64.9 Anemia, unspecified; R09.02 Hypoxemia; R74.8 Abnormal levels of other serum enzymes; Z68.32 Body mass index [BMI] 32.0-32.9, adult
CPT/HCPCS: 36415; 71046; 80048; 83880; 84484; 85025; 85027; 90937; 93005; 93306; 97802; 99283; 99406; J1756; A4216; G0257; J1940

== ENCOUNTER → 2018-04-07 17:10 | Outpatient (CLI) | payer SELFPAY ==
[2018-03-31 11:10] VITALS: BMI 39.9
[2018-04-07 17:20] LABS: Hemoglobin 7.2 g/dl (13.0-16.5)
== END ==
PROVIDERS: Visit Provider Internal Medicine Nephrology
DX: D64.9 Anemia, unspecified (principal)
CPT/HCPCS: 85018

== ENCOUNTER 2018-09-21 22:17 | Observation (INO) | payer MEDICARE, SELFPAY ==
[2018-03-31 11:10] VITALS: BMI 39.9
[2018-09-21 22:18] VITALS: BP 165/111; PULSE 104; RESP 18; TEMP 37.7; O2SAT 100; BMI 30.7
--- NOTE | 2018-09-21 23:12 | CT_ITS ---
HISTORY: Upper abdominal pain, hypertension, end-stage renal disease on dialysis, history of right renal transplant. COMPARISON: None. TECHNIQUE: Helical CT axial images from the lung bases to the pubic symphysis without IV contrast. No oral contrast was administered. Multiplanar reconstruction. A radiation dose optimization technique was used for this scan. # of images incl. paperwork: [id number] FINDINGS: LUNG BASES: Trace right pleural effusion. No left pleural effusion. No basilar consolidation. LIVER: Hepatomegaly. No focal masses. Mild perihepatic free fluid. HEPATOBILIARY: No calcified gallstones. No intra- or extrahepatic ductal dilatation. SPLEEN: Mild splenomegaly measuring up to 14.4 cm. Mild perisplenic free fluid. PANCREAS: Unremarkable. ADRENAL GLANDS: Unremarkable. KIDNEYS: Severe bilateral [place] kidney atrophy. Right iliac fossa renal transplant without hydronephrosis. BOWEL AND MESENTERY: Moderate volume ascites. There is moderate wall thickening of the junction of descending and sigmoid colon and proximal sigmoid colon with surrounding subjacent diverticula. Further characterization limited given the degree of ascites. No small or large bowel dilatation. The appendix is not identified, and may be surgically absent No abnormal mesenteric lymphadenopathy. No pneumoperitoneum. RETROPERITONEUM:Normal caliber abdominal aorta without aneurysm. Mild ASVD. Mild retroperitoneal lymphadenopathy in the aortocaval distribution with the largest lymph node measuring 1.4 cm as seen on series 2, image 106. PELVIS:Urinary bladder is suboptimally distended.Nonenlarged prostate gland. ABDOMINAL WALL: Moderate subcutaneous edema. BONES: No suspicious osseous lytic or blastic lesions seen. CT/Abdomen/Pelvis without Cont IMPRESSION: 1. Moderate volume ascites. Moderate anasarca. Trace right pleural effusion. 2. Moderate wall thickening of the junction of descending and sigmoid colon with findings which may represent superimposed diverticulitis. This is incompletely assessed given the degree of ascites. 3. Transplant kidney right iliac fossa without hydronephrosis. Severe bilateral [place] renal atrophy. 4. Hepatosplenomegaly. Individualized dose optimization techniques were used for this CT. at 0024 Reported and signed by: Arsh Lauren MD Electronically Signed: Arsh Lauren MD at 0:23 EDT Tel , Service support ,
--- NOTE | 2018-09-21 23:13 | ED.VIS.GEN ---
History of Present Illness Chief Complaint: Abd Pain Narrative: She is a 43-year-old male who presents with abdominal pain. It began earlier today and gradually worsened to the day. Patient complains of mild distention. He describes his pain is aching. He rates it a 7-8 out of 10. He had one episode of nonbloody nonbilious emesis shortly before presentation here. He has a prior history of renal transplant as well as a history of ureteral rupture and associated surgical intervention. He is also had some mild diarrhea today. Past Medical History - Allergies and Home Meds Allergies/Adverse Reactions: Allergies Wpegqfq-Ial-Fak Reductase Inhibitor Allergy (Verified 09/21/18 22:20) Other Primary Care Physician: Care Physician,No Primary [Primary Care Provider] - Past Medical History: - - End-stage renal disease, hypertension Surgical History: - - History of renal transplant, surgery for ureteral rupture - Family History Maternal Family History: Reports: No pertinent history Paternal Family History: Reports: Cancer - Father of stomach cancer, No pertinent history Review of Systems All systems negative except as indicated Cardiovascular: Denies: Chest pain Respiratory: Denies: Dyspnea, Cough Gastrointestinal: Reports: Abdominal pain, Nausea, Vomiting, Diarrhea Physical Exam Vital Signs/Narrative: Vital Signs Temp Pulse Resp BP Pulse Ox 09/21/18 22:18 99.8 F H 104 H 18 165/111 H 100 General: Well nourished Head: Normocephalic Eyes: EOMI ENT: Moist mucous membranes Neck: Supple Cardiovascular: Regular rate, Regular rhythm Respiratory: No distress, CTA bilaterally Abdomen: Soft, - - Mild diffuse tenderness, mild distention, no guarding, no rebound, normal bowel sounds Skin: Normal color Neurological: Alert Psychological: Normal affect Diagnostic/Tx/Re-eval Impressions Abdomen/Pelvis CT 09/21/18 23:12 IMPRESSION: 1. Moderate volume ascites. Moderate anasarca. Trace right pleural effusion. 2. Moderate wall thickening of the junction of descending and sigmoid colon with findings which may represent superimposed diverticulitis. This is incompletely assessed given the degree of ascites. 3. Transplant kidney right iliac fossa without hydronephrosis. Severe bilateral [place] renal atrophy. 4. Hepatosplenomegaly. Individualized dose optimization techniques were used for this CT. at 0024 Reported and signed by: Arsh Lauren MD Electronically Signed: Arsh Lauren MD at 0:23 EDT Tel , Service support , 09/21/18 23:12 CT Abd [Abdomen/Pelvis without Cont] [CT] Stat Laboratory Results 09/21/18 09/21/18 23:16 23:16 WBC 10.3 RBC 3.49 L Hgb 11.7 L Hct 36.0 L MCV 103.2 H MCH 33.5 H MCHC 32.5 RDW 14.3 RDW Differential 54.1 H Plt Count 127 L MPV 10.3 Immature Gran % (Auto) 0.100 Neut % (Auto) 92.8 H Lymph % (Auto) 2.1 L [place] % (Auto) 4.7 Eos % (Auto) 0.2 Baso % (Auto) 0.1 Absolute Neuts (auto) 9.5 H Absolute Lymphs (auto) 0.22 L Total Counted Not Reportable Sodium 134 L Potassium 3.9 Chloride 95 L Carbon Dioxide 31.0 Anion Gap 8 BUN 39 H Creatinine 7.71 H* Estim Creat Clear Calc 12.89 Est GFR (MDRD) Af Amer 10 L Est GFR (MDRD) Non-Af 8 L BUN/Creatinine Ratio 5.1 L Glucose 108 H Calcium 9.3 Total Bilirubin 2.80 H Direct Bilirubin 1.77 H AST 12 L ALT 22 Alkaline Phosphatase 262 H Total Protein 6.9 Albumin 3.2 Globulin 3.7 Lipase 97 - Medical Decision Making Patient was treated with IV fluids, morphine, Zofran. He is only had mild improvement of pain on reevaluation. Labs are notable for mild elevation of bilirubin and alkaline phosphatase. CT of the abdomen pelvis shows ascites and findings most likely representing diverticulitis. There is no biliary dilatation. On reevaluation he is still complaining of significant pain was given additional morphine. He was also given IV Zosyn for diverticulitis. He will be discussed with the hospitalist and admitted. ED Disposition - Plan for ED Patient: Disposition: Home or Assisted Living Diagnosis: Diverticulitis, Elevated bilirubin Referrals: Care Physician,No Primary [Primary Care Provider] -
[2018-09-21] MEDS: Ondansetron 4 MG/2 ML Vial IV (23:24)
[2018-09-21] MEDS: Morphine 4 MG/ML Syringe IV (23:25)
[2018-09-21 23:27] LABS: Absolute Lymphocyte Count 0.22 X10^3/ul (0.83-4.51); Absolute Neutrophil Count 9.5 X10^3/uL (2.0-7.7); Basophil# 0.01 X10^3/uL; Basophil% 0.1 % (0-1); Differential Indicated SCAN CRITERIA MET; Eosinophil# 0.02 X10^3/uL; Eosinophils% 0.2 % (0-5); Hemoglobin 11.7 g/dl (13.0-16.5); Lymphocyte # 0.22 X10^3/ul (4.0); Lymphocyte % 2.1 % (19-41); Mean Corp Hgb Conc 32.5 g/gl (32-36); Mean Corpuscular Hgb 33.5 pg (27.0-32.0); Mean Corpuscular Volume 103.2 fL (80-94); Mean Platelet Vol. 10.3 fl (6.2-12.0); Monocyte# 0.48 X10^3/uL; Monocyte% 4.7 % (0-10); Neutrophil # 9.52 X10^3/uL (2.7-7.7); Neutrophil % 92.8 % (47-70); POSITIVE COUNT NO; POSITIVE DIFFERENTIAL YES; POSITIVE MORPHOLOGY NO; Platelet Count 127 K/mm3 (150-450); RBC Distribution Width CV 14.3 % (11.6-14.6); RBC Distribution Width SD 54.1 fl (35.1-43.9); Red Blood Count 3.49 M/mm3 (4.6-6.2); White Blood Count 10.3 K/mm3 (4.4-11.0)
[2018-09-21 23:44] LABS: AST(SGOT) 12 U/L (15-37); Alanine Aminotransfer ALT/SGPT 22 U/L (16-61); Albumin, Serum 3.2 g/dL (3.2-5.0); Alkaline Phosphatase 262 U/L (45-117); Anion Gap 8 (5-15); BUN 39 mg/dL (7-18); BUN/Creat Ratio 5.1 RATIO (10-20); Bilirubin, Direct 1.77 mg/dL (0.00-0.30); Calcium,Total 9.3 mg/dL (8.5-10.1); Chloride 95 mmol/L (98-107); Creatinine, Serum 7.71 mg/dL (0.70-1.30); EST Glomerular Filtration Rate 8 mL/min (>60); Est Glom Filt Rate - Afr Amer 10 mL/min (>60); Estimated Creatinine Clearance 12.89 ml/min; Globulin 3.7 g/dL (2.2-4.2); Glucose 108 mg/dL (74-106); Lipase 97 U/L (73-393); Potassium 3.9 mmol/L (3.5-5.1); Protein, Total 6.9 g/dL (6.4-8.2); Sodium Level 134 mmol/L (136-145)
--- NOTE | 2018-09-21 23:45 | ED.RN ---
lab called with critical lab results. creatine level 1.71. Dr. Barragan made aware no new orders at this time
[2018-09-22] VITALS (13 sets, daily range): BP systolic 128–148; BP diastolic 47–91; PULSE 79–109; RESP 14–20; TEMP 36.7–38.1; O2SAT 92–97; BMI 30.9; BMI 31.0
--- NOTE | 2018-09-22 00:38 | PCM.HP.STD ---
Problem List (1) Diverticulitis Status: Acute (2) Elevated bilirubin Status: Acute (3) CHF (congestive heart failure) Status: Chronic Qualifiers: Heart failure type: combined systolic and diastolic (4) Nicotine dependence Status: Chronic Qualifiers: Nicotine product type: unspecified Substance use status: unspecified nicotine-induced disorder Qualified Code(s): F17.209 - Nicotine dependence, unspecified, with unspecified nicotine-induced disorders (5) Non-rheumatic tricuspid valve insufficiency Status: Chronic (6) Secondary pulmonary arterial hypertension Status: Chronic (7) Cardiomyopathy in diseases classified elsewhere Status: Chronic (8) ESRD on dialysis Status: Chronic (9) Renal transplant recipient Status: Chronic (10) Obesity Status: Chronic Qualifiers: Obesity classification: adult class 1 (BMI 30 - 34.9) History of Present Illness Date of Admission: 09/22/18 Chief Complaint: Abdominal pain The patient is a 43 y/o M w/ PMHx: AOCD, ESRD on HD, Systolic and Diastolic CHF, Cardiomyopathy unclear type, Pulmonary HTN, Obesity, Tobacco use ongoing who presents to the [facility] ED on 09/22/18 with history of generalized abdominal pain as well as mild distention, described as an aching, rated 7-8 out of a 10 with associated nausea and nonbilious emesis in addition to diarrhea only on day of presentation starting earlier in the day but gradually worsening. He denies any recent weight gain or worsened extremity edema. He is currently in the process of evaluation per to gain transplant list status again. Work-up in the ED included T 99.8, heart rate 104, BP 165/111, respiratory rate 18, 100% on room air, CBC with WBC 10.3, hemoglobin 11.7, platelet 127 with left shift, BMP with sodium 134, chloride 95, BUN/Cr 39/7.71, glucose 108, T Bili 2.80 (prior normal), D Bili 1.77 (prior 0.75), AST/ALT /, alk phos 262, CT abdomen pelvis with moderate volume ascites, moderate anasarca, trace right pleural effusion, moderate wall thickening of the junction of descending and sigmoid colon suggestive of superimposed diverticulitis, transplant kidney in the right iliac fossa without hydronephrosis, severe bilateral [place] renal artery atrophy, hepatosplenomegaly. In the ED patient ministered normal saline, Zofran, morphine, Zosyn. Past Medical History Past Medical History (Chronic Problems): Chronic Problems (Last Reviewed 03/31/18 @ 11:39 by Romeo Baeza MD) CHF (congestive heart failure) (Chronic) Nicotine dependence (Chronic) Non-rheumatic tricuspid valve insufficiency (Chronic) Secondary pulmonary arterial hypertension (Chronic) Cardiomyopathy in diseases classified elsewhere (Chronic) Acute combined systolic (congestive) and diastolic (congestive) heart failure (Chronic) ESRD on dialysis (Chronic) Renal transplant recipient (Chronic) Obesity (Chronic) Medical History: Medical History (Last Reviewed 03/31/18 @ 11:39 by Romeo Baeza MD) Demand ischemia of myocardium (Resolved) Onset Date: 03/13/18 I24.8 Nicotine dependence (Chronic) F17.200 Non-rheumatic tricuspid valve insufficiency (Chronic) I36.1 Secondary pulmonary arterial hypertension (Chronic) I27.21 Cardiomyopathy in diseases classified elsewhere (Chronic) I43 Acute combined systolic (congestive) and diastolic (congestive) heart failure (Chronic) I50.41 ESRD on dialysis (Chronic) N18.6, Z99.2 Obesity (Chronic) E66.9 Allergies Bheuxcf-Fra-Txh Reductase Inhibitor Allergy (Verified 09/21/18 22:20) Other Home Medications: Ambulatory Orders Medication Instructions Recorded Calcium Acetate 667 mg PO TID 03/12/18 Carvedilol 25 mg PO BID 03/12/18 Clonidine 1 each TD QWEEK 03/12/18 Losartan Potassium 50 mg PO BID 03/12/18 Amlodipine [Norvasc] 10 mg PO DAILY #30 tablet 03/13/18 Furosemide [Lasix] 80 mg PO DAILY PRN PRN 09/22/18 Surgical History: Surgical History (Last Reviewed 03/31/18 @ 11:39 by Romeo Baeza MD) Renal transplant recipient (Chronic) Z94.0 Surgical History: - - History of renal transplant, surgery for ureteral rupture, AVF. Psychiatric History: No pertinent psych hx Lives: Spouse/ Significant Other Smoking Status: Current every day smoker - 1/2 ppd cigarette tobacco usage currently. Tobacco Use: Cigarettes Alcohol: None Drugs: None - *Family History Maternal History Items: Seizures Paternal History Items: Cancer - Father of stomach cancer Review of Systems Constitutional: Reports: Anorexia, Malaise, Weakness, Fatigue. Denies: Chills, Fever, Weight Change HEENT: Denies: Head Aches, Sinus Congestion, Sinus Drainage Cardiovascular: Denies: Chest Pain, Palpitations Respiratory: Denies: Cough, Shortness of breath at rest, Sputum production Gastrointestinal: Reports: Abdominal Pain, Diarrhea, Nausea, Vomiting Genitourinary: Denies: Dysuria Musculoskeletal: Reports: Joint Pain. Denies: Joint Tenderness Skin: Denies: Rash, Wounds Neurological: Denies: Numbness, Tingling, Focal weakness Psychiatric: Denies: Anxiety, Depression, Homicidal Ideations, Suicidal Ideations Hematologic/ Lymphatic: Reports: Anemia. Denies: Easy Bruising, Easy Bleeding VTE Information - Inpt Only VTE Present on Admission: No VTE Mechan Device Prophylaxis: SCD's VTE Pharm Prophylaxis ordered?: Yes Patient Problems: Active and Suspected Problems (Last Reviewed 03/31/18 @ 11:39 by Romeo Baeza MD) Diverticulitis (Acute) Elevated bilirubin (Acute) Subjective: Seated upright in the ED bed, mildly fatigued appearance, no acute distress, notes abdominal discomfort improved with pain regimen recently administered. Objective: Physical Examination: General: awake, alert, oriented x 3 and cooperative, seated upright in bed in no apparent distress, notes abdominal discomfort has improved since recent pain administration. Skin: normal color, turgor, no icterus, cyanosis. HEENT: AT/NC, EOMI, PERRLA, mildly dry MM, no carotid bruits or JVD noted. Lungs: CTA bilaterally, moderate effort, moderately decreased BL bases, no rales, ronchi or wheezing. Heart: Mildly tachycardic with regular rhythm; no gallop, rub audible. Abdomen: soft, mild generalized TTP, mildly distended per patient, hyperactive BS, difficult to assess HSM. Extremities: no cyanosis, clubbing, minimal BL nonpitting ankle edema, LUE AVF + thrill. Neurological: patient awake, alert, oriented x 3; cognitive function intact; pupils equally reactive to light and accomodation; cranial nerves II-XII grossly normal, moving all 4 extremities, no focal deficits, strength moderately globally decreased secondary to acute presentation. Psychiatric: affect appears fatigued, no acute evidence of depressive or anxiety feelings. - Physical Exam Vital Signs Temp Pulse Resp BP Pulse Ox 99.8 F H 104 H 18 165/111 H 100 09/21/18 22:18 09/21/18 22:18 09/21/18 22:18 09/21/18 22:18 09/21/18 22:18 Oxygen Delivery Method Room Air Weight: 214 lb Body Mass Index (BMI) 30.7 Laboratory Tests Past 24 Hrs 09/21/18 09/21/18 23:16 23:16 WBC 10.3 RBC 3.49 L Hgb 11.7 L Hct 36.0 L MCV 103.2 H MCH 33.5 H MCHC 32.5 RDW 14.3 RDW Differential 54.1 H Plt Count 127 L MPV 10.3 Immature Gran % (Auto) 0.100 Neut % (Auto) 92.8 H Lymph % (Auto) 2.1 L [place] % (Auto) 4.7 Eos % (Auto) 0.2 Baso % (Auto) 0.1 Absolute Neuts (auto) 9.5 H Absolute Lymphs (auto) 0.22 L Total Counted Not Reportable Sodium 134 L Potassium 3.9 Chloride 95 L Carbon Dioxide 31.0 Anion Gap 8 BUN 39 H Creatinine 7.71 H* Estim Creat Clear Calc 12.89 Est GFR (MDRD) Af Amer 10 L Est GFR (MDRD) Non-Af 8 L BUN/Creatinine Ratio 5.1 L Glucose 108 H Calcium 9.3 Total Bilirubin 2.80 H Direct Bilirubin 1.77 H AST 12 L ALT 22 Alkaline Phosphatase 262 H Total Protein 6.9 Albumin 3.2 Globulin 3.7 Lipase 97 Assessment/Plan All Active Problems (Last Reviewed 03/31/18 @ 11:39 by Romeo Baeza MD) Diverticulitis (Acute) Elevated bilirubin (Acute) Demand ischemia of myocardium (Resolved 03/13/18) The patient is a 43 y/o M w/ PMHx: AOCD, ESRD on HD, Systolic and Diastolic CHF, Cardiomyopathy unclear type, Pulmonary HTN, Obesity, Tobacco use ongoing who presents to the [facility] ED on 09/22/18 with history of generalized abdominal pain as well as mild distention, described as an aching, rated 7-8 out of a 10 with associated nausea and nonbilious emesis in addition to diarrhea only on day of presentation starting earlier in the day but gradually worsening. (1) Abdominal pain secondary to Acute Diverticulitis: Work-up in the ED included T 99.8, heart rate 104, BP 165/111, respiratory rate 18, 100% on room air, CBC with W BC 10.3, hemoglobin 11.7, platelet 127 with left shift, BMP with sodium 134, chloride 95, BUN/Cr 39/7.71, glucose 108, T Bili 2.80 (prior normal), D Bili 1.77 (prior 0.75), AST/ALT 12/, alk phos 262, CT abdomen pelvis with moderate volume ascites, moderate anasarca, trace right pleural effusion, moderate wall thickening of the junction of descending and sigmoid colon suggestive of superimposed diverticulitis, transplant kidney in the right iliac fossa without hydronephrosis, severe bilateral [place] renal artery atrophy, hepatosplenomegaly. Will admit to [facility], given anasarca will defer aggressive hydration, monitor I&Os, maintain NPO status w/ bowel rest, treat with zosyn regimen, IV PPI, anti-emetics, pain regimen PRN. Consider diet advancement to clears in AM if clinically improved. (2) Anasarca, Moderate: CT A/P w/ T Bili 2.80 (prior normal), D Bili 1.77 (prior 0.75), AST/ALT 12/, alk phos 262, CT abdomen pelvis with moderate volume ascites, moderate anasarca, will defer aggressive IVFs, may need to even consider diuresis, planned HD today. Maintain on home oral lasix in interim. (3) Elevated Bilirubin: T Bili 2.80 (prior normal), D Bili 1.77 (prior 0.75), AST/ALT 04/08, alk phos 262, GB US pending, repeat CMP in AM, unclear specific etiology. (4) Chronic CHF, Systolic and Diastolic, Cardiology Unclear type: Maintain on home asa, coreg, losartan, lasix, noted statin allergy, continue HD regimen per home schedule. As noted no pulmonary symptoms, no dyspnea, saturation appropriate on room air, does have on CT A/P notable ascites/anasarca which will be continued to be monitored, daily weights, continued oral diuresis but closely monitor for further needs. (5) Hypertension: Continue home regimen including Norvasc, Coreg, clonidine, losartan, lasix, PRN hydralazine. (6) Hyperlipidemia: Statin allergy. (7) ESRD s/p Prior Renal Txp, Failed: On HD, Nephrology consultation pending, continue home HD regimen MWF especially given next today with #2 presentation. (8) AOCD: Admission Hgb 11.7, stable, on CHRISTOPHER, trend. (9) Obesity: Weight loss and lifestyle changes encouraged. (10) Tobacco Abuse: Encouraged cessation, inpatient consultation per RT, NR if desired. (11) GERD: PPI. (12) DVT Prophylaxis: SCDs, heparin. Code Visit Inpatient E&M: 24510 Init Hosp L3
[2018-09-22] MEDS: Morphine 4 MG/ML Syringe IV (01:04)
--- NOTE | 2018-09-22 01:38 | US_ITS ---
STUDY: ABDOMINAL ULTRASOUND - RIGHT UPPER QUADRANT REASON FOR VISIT: Male, 43 years old. Elevated bilirubin levels. History of renal transplant. Abdominal pain. TECHNIQUE: Ultrasound evaluation of the right upper quadrant was performed with real-time and static mcneal-scale imaging. TECHNICAL QUALITY: Adequate. COMPARISON: Comparison is made with prior examination dated May 19, [address] scan of the abdomen and pelvis dated September 21, 2018. FINDINGS: Liver: The liver is enlarged and measures 20.7 cm. There is normal echogenicity of the liver. The bile ducts are within normal limits. There is hepatic color flow. The direction of portal flow is hepatopetal. There is no demonstrated mass lesion. There is evidence of a perihepatic fluid. Gallbladder: Normal distended gallbladder. The gallbladder wall is slightly thickened and measures 3.7 mm. There is a negative sonographic Young's sign. There is pericholecystic fluid. There are no gallstones. Common Bile Duct (C.B.D.): The common bile duct measures 3.8 mm. Pancreas: There is nonvisualization of the pancreas due to overlying bowel gas. Right Kidney: There is atrophy of the [place] right kidney. The right kidney measures 6.7 cm x 2.8 cm x 2.0 cm. The transplanted right kidney measures 10.9 cm x 4.9 cm x 5.6 cm. Cortical thickness measures 1.6 cm. US/Abdomen Limited IMPRESSION: Hepatomegaly. Small amount of pericholecystic fluid. The transplanted kidney is unremarkable. Electronically Signed: Colin Dwyer, at 10:07 EDT , Service support ,
[2018-09-22] MEDS: Furosemide 80 MG Tablet PO ×2 (02:15→09:45)
[2018-09-22] MEDS: cloNIDine HCl 0.1 MG Patch TRANSDERM. (02:30)
[2018-09-22 05:46] LABS: Absolute Lymphocyte Count 0.39 X10^3/ul (0.83-4.51); Absolute Neutrophil Count 13.4 X10^3/uL (2.0-7.7); Basophil# 0.01 X10^3/uL; Basophil% 0.1 % (0-1); Eosinophil# 0.01 X10^3/uL; Eosinophils% 0.1 % (0-5); Hematocrit 33.8 % (40-54); Hemoglobin 10.5 g/dl (13.0-16.5); Lymphocyte # 0.39 X10^3/ul (4.0); Lymphocyte % 2.7 % (19-41); Mean Corp Hgb Conc 31.1 g/gl (32-36); Mean Corpuscular Hgb 32.4 pg (27.0-32.0); Mean Corpuscular Volume 104.3 fL (80-94); Mean Platelet Vol. 10.8 fl (6.2-12.0); Monocyte# 0.79 X10^3/uL; Monocyte% 5.4 % (0-10); Neutrophil # 13.37 X10^3/uL (2.7-7.7); Neutrophil % 91.4 % (47-70); Platelet Count 109 K/mm3 (150-450); RBC Distribution Width CV 13.9 % (11.6-14.6); Red Blood Count 3.24 M/mm3 (4.6-6.2); White Blood Count 14.6 K/mm3 (4.4-11.0)
[2018-09-22 05:52] LABS: Differential Indicated SCAN CRITERIA MET; POSITIVE COUNT NO; POSITIVE DIFFERENTIAL YES; POSITIVE MORPHOLOGY NO
[2018-09-22 06:06] LABS: ALB/GLOB Ratio 0.7 RATIO (0.9-2.4); AST(SGOT) 11 U/L (15-37); Alanine Aminotransfer ALT/SGPT 21 U/L (16-61); Albumin, Serum 2.7 g/dL (3.2-5.0); Alkaline Phosphatase 211 U/L (45-117); Anion Gap 13 (5-15); BUN 42 mg/dL (7-18); BUN/Creat Ratio 5.2 RATIO (10-20); Chloride 96 mmol/L (98-107); Creatinine, Serum 8.07 mg/dL (0.70-1.30); EST Glomerular Filtration Rate 8 mL/min (>60); Est Glom Filt Rate - Afr Amer 10 mL/min (>60); Estimated Creatinine Clearance 12.31 ml/min; Globulin 3.7 g/dL (2.2-4.2); Glucose 105 mg/dL (74-106); Potassium 3.9 mmol/L (3.5-5.1); Protein, Total 6.4 g/dL (6.4-8.2); Sodium Level 138 mmol/L (136-145)
[2018-09-22] MEDS: HYDROcodone Bitartrate/Apap 5/325 Tablet PO (06:26)
[2018-09-22 06:43] LABS: Differential Comment SCANNED
[2018-09-22] MEDS: Losartan Potassium 50 MG Tablet PO (09:45)
[2018-09-22] MEDS: Carvedilol 25 MG Tablet PO (09:45)
[2018-09-22] MEDS: Calcium Acetate 667 MG Capsule PO ×2 (09:45→12:12)
[2018-09-22] MEDS: amLODIPine 10 MG Tablet PO (09:45)
[2018-09-22 12:11] LABS: International Normalized Ratio 1.7; Prothrombin Time (Protime)PT. 19.7 SECONDS (11.7-14.9)
--- NOTE | 2018-09-22 12:25 | CASEMGMT ---
RN CM CLINICAL OUTCOMES MANAGER CM to room to meet with patient for initial transition planning/care coordination assessment. RN CHRIS introduced self and role at [facility]. Pt voices understanding and consents to assessment at this time. Pt resting in bed in no distress at this time. Pt is A/O at this time and answers all questions appropriately. Care providers, pharmacy, and demographics verified/updated at this time. PCP: No PCP. Pt provided with list of local PCP's in-network with [facility] taken from there website. Specialists: Jlaen-nephrology Pt goes to Dialysis MWF @ [facility]. Chair time 1620. Preferred Pharmacy: [facility] Insurance: [facility] Prescription Benefit: Yes Living Will/HPOA: Pt does not currently have LW/HCPOA and declines info at this time. Pt made aware that he can contact as an out-pt and make appt in the future if he decides he would like to talk with someone about this or would like to utilize [facility] social work for advanced directive completion. Given [employer] card with information and contact number. Pt expresses understanding. LNOK: Living Arrangements: Lives with and stepson lives with them. helps to care for stepson. Independent w/ADL's. does meals and cleaning. Transportation: Pt states drives self and states no transportation concerns at this time. will drive him home on d/c. DME: Denies using any DME and denies needs. HHC/SNF: No history of HHC but did go to [facility] in [place] in 2009 after kidney transplant. Pt wishes to return home and states has no concerns with going home at time of discharge. 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 He states he smokes 5 or less cigarettes/day. Does not drink ETOH or use street drugs. CM to follow for discharge planning/needs. Pt voices no further concerns/needs at this time. Advised pt to ask for CM if any further questions/concerns/needs arise. Voices understanding. PLAN: Home with spousal support and discharge plans in place David LOMBARDO RN, CM
--- NOTE | 2018-09-22 13:37 | PCM.CONS.R ---
Problem List (1) ESRD on dialysis Status: Chronic Consultation - Renal 09/22/18 PCP/ Referring MD: Requesting physician: Dr Grier Primary care physician: No Primary Care Phys Reason for Consultation:: ESRD - History of Present Illness History of Present Illness: The patient is a 43 year old M well known to us. ESRD on HD MWF schedule. last HD was tuesday. works somewhat busy schedule admitted with abdomen pain. CT abd showed diverticulitis, new onset ascitis, hepatomegaly fairly compliant with dialysis - Allergies Allergies: Allergies Kmimgdh-Dew-Jby Reductase Inhibitor Allergy (Verified 09/21/18 22:20) Other - Current Medications Current Medications: Current Medications Acetaminophen (Tylenol) 650 mg PO Q6H PRN PRN PRN Reason: Non-cardiac pain (mod-severe) Hydrocodone Bitart/Acetaminophen ([place] 5mg-325mg) 1 - 2 tablet PO Q6H PRN PRN PRN Reason: MOD-SEVERE PAIN (4-10/10) Last Admin: 09/22/18 06:26 Dose: 2 tablet Al Hydroxide/Mg Hydroxide (Mylanta Ii) 15 - 30 ml PO Q4H PRN PRN PRN Reason: INDIGESTION Albuterol Sulfate (Ventolin Aerosols) 2.5 mg INHALATION Q2H PRN PRN PRN Reason: dyspnea, wheezing Amlodipine Besylate (Norvasc) 10 mg PO DAILY [facility] Last Admin: 09/22/18 09:45 Dose: 10 mg Calcium Acetate (Phoslo Gel Cap) 667 mg PO TIDCM [facility] Last Admin: 09/22/18 12:12 Dose: 667 mg Carvedilol (Coreg) 25 mg PO BID [facility] Last Admin: 09/22/18 09:45 Dose: 25 mg Clonidine HCl (Catapres-Tts1) 0.1 mg TRANSDERM. QWEEK@1000 [facility] Last Admin: 09/22/18 02:30 Dose: 0.1 mg Dextrose (D50w Syringe) 0 gm IV X1 PRN; Protocol PRN Reason: Hypoglycemia Furosemide (Lasix) 80 mg PO DAILY [facility] Last Admin: 09/22/18 09:45 Dose: 80 mg Glucagon () 1 mg IM .X1 PRN PRN Reason: Hypoglycemia Heparin Sodium (Porcine) (Heparin Na) 5,000 unit SC Q12 [facility] Last Admin: 09/22/18 09:48 Dose: Not Given Hydralazine HCl (Apresoline Iv) 10 mg IV Q4H PRN PRN PRN Reason: SBP > 160 Pantoprazole Sodium 40 mg/ (Sodium Chloride) 110 mls @ 330 mls/hr IV Q12 [facility] Last Admin: 09/22/18 09:39 Dose: 330 mls/hr Piperacillin Sod/Tazobactam (Sod 3.375 gm/ Sodium Chloride) 50 mls @ 12.5 mls/hr IV Q12 [facility] Last Admin: 09/22/18 09:45 Dose: 12.5 mls/hr Losartan Potassium (Cozaar) 50 mg PO BID [facility] Last Admin: 09/22/18 09:45 Dose: 50 mg Melatonin (Melatonin) 3 mg PO QHS PRN PRN PRN Reason: INSOMNIA Morphine Sulfate () 1 - 2 mg IV Q4H PRN PRN PRN Reason: PAIN Ondansetron HCl (Zofran) 4 mg IV Q8H PRN PRN PRN Reason: NAUSEA/VOMITING Sodium Chloride () 5 - 15 ml IV UD PRN PRN Reason: SALINE FLUSH - Past Medical History Past Medical History (Chronic Problems): Chronic Problems (Last Reviewed 03/31/18 @ 11:39 by Romeo Baeza MD) CHF (congestive heart failure) (Chronic) Nicotine dependence (Chronic) Non-rheumatic tricuspid valve insufficiency (Chronic) Secondary pulmonary arterial hypertension (Chronic) Cardiomyopathy in diseases classified elsewhere (Chronic) Acute combined systolic (congestive) and diastolic (congestive) heart failure (Chronic) ESRD on dialysis (Chronic) Renal transplant recipient (Chronic) Obesity (Chronic) - Past Surgical History Surgical History: - - History of renal transplant, surgery for ureteral rupture, AVF. - Social History Smoking Status: Current every day smoker Alcohol: None Drugs: None - Family History Maternal History Items: Seizures Paternal History Items: Cancer - Father of stomach cancer Review of Systems Constitutional: Denies: Chills, Fever, Weight Change HEENT: Denies: Head Aches, Sinus Congestion, Sinus Drainage Cardiovascular: Denies: Chest Pain, Palpitations Respiratory: Denies: Cough, Shortness of breath at rest, Sputum production Gastrointestinal: Denies: Abdominal Pain, Nausea, Vomiting Genitourinary: Denies: Dysuria Musculoskeletal: Denies: Joint Pain, Joint Tenderness Skin: Denies: Rash, Wounds Neurological: Denies: Numbness, Tingling, Focal weakness Psychiatric: Denies: Anxiety, Depression, Homicidal Ideations, Suicidal Ideations Hematologic/ Lymphatic: Denies: Easy Bruising, Easy Bleeding Patient Problems: Active and Suspected Problems (Last Reviewed 03/31/18 @ 11:39 by Romeo Baeza MD) Diverticulitis (Acute) Elevated bilirubin (Acute) - Physical Exam General: Alert, Oriented x3, Cooperative HEENT: Atraumatic, PERRLA, EOMI, Normocephalic Neck: Supple, No JVD, Negative Carotid Bruits Lungs: Clear to auscultation, Normal air movement Cardiovascular: Regular rate, No murmurs Abdomen: Bowel Sounds Present, Soft, Non Tender Extremities: No edema, Capillary Refill Less than 3 Seconds Skin: No rashes, No breakdown Musculoskeletal: No Tenderness to Palpation of Joints or Extremities Neurological: Cranial nerves II-XII grossly intact Psych/Mental Status: Normal Affect, Appropriate Vital Signs Temp Pulse Resp BP Pulse Ox 98.0 F 81 16 135/90 H 97 09/22/18 09:39 09/22/18 09:39 09/22/18 09:39 09/22/18 09:39 09/22/18 09:39 Oxygen Flow Rate (L/min) 2 Oxygen Delivery Method Room Air Weight: 98.7 kg Body Mass Index (BMI) 30.9 Intake and Output for Last 24 Hours 09/20/18 09/21/18 09/22/18 23:59 23:59 23:59 Intake Total 565.8 / 565.8 Output Total 0 / 0 Balance 565.8 / 565.8 Laboratory Tests Past 24 Hrs 09/21/18 09/21/18 09/22/18 23:16 23:16 05:10 WBC 10.3 14.6 H RBC 3.49 L 3.24 L Hgb 11.7 L 10.5 L Hct 36.0 L 33.8 L MCV 103.2 H 104.3 H MCH 33.5 H 32.4 H MCHC 32.5 31.1 L RDW 14.3 13.9 RDW Differential 54.1 H 52.0 H Plt Count 127 L 109 L MPV 10.3 10.8 Immature Gran % (Auto) 0.100 0.300 Neut % (Auto) 92.8 H 91.4 H Lymph % (Auto) 2.[address] [place] % (Auto) 4.7 5.4 Eos % (Auto) 0.2 0.1 Baso % (Auto) 0.1 0.1 Absolute Neuts (auto) 9.5 H 13.4 H Absolute Lymphs (auto) 0.22 L 0.39 L Total Counted Not Reportable Not Reportable Differential Comment SCANNED PT INR Sodium 134 L Potassium 3.9 Chloride 95 L Carbon Dioxide 31.0 Anion Gap 8 BUN 39 H Creatinine 7.71 H* Estim Creat Clear Calc 12.89 Est GFR (MDRD) Af Amer 10 L Est GFR (MDRD) Non-Af 8 L BUN/Creatinine Ratio 5.1 L Glucose 108 H Calcium 9.3 Total Bilirubin 2.80 H Direct Bilirubin 1.77 H AST 12 L ALT 22 Alkaline Phosphatase 262 H Total Protein 6.9 Albumin 3.2 Globulin 3.7 Albumin/Globulin Ratio Lipase 97 Hepatitis A IgM Ab Hepatitis A Ab Total Hep Bs Antigen Hep B Core Total Ab Hep B Core IgM Ab 09/22/18 09/22/18 09/22/18 05:10 11:50 11:50 WBC RBC Hgb Hct MCV MCH MCHC RDW RDW Differential Plt Count MPV Immature Gran % (Auto) Neut % (Auto) Lymph % (Auto) [place] % (Auto) Eos % (Auto) Baso % (Auto) Absolute Neuts (auto) Absolute Lymphs (auto) Total Counted Differential Comment PT 19.7 H INR 1.7 Sodium 138 Potassium 3.9 Chloride 96 L Carbon Dioxide 29.0 Anion Gap 13 BUN 42 H Creatinine 8.07 H* Estim Creat Clear Calc 12.31 Est GFR (MDRD) Af Amer 10 L Est GFR (MDRD) Non-Af 8 L BUN/Creatinine Ratio 5.2 L Glucose 105 Calcium 9.0 Total Bilirubin 3.10 H Direct Bilirubin AST 11 L ALT 21 Alkaline Phosphatase 211 H Total Protein 6.4 Albumin 2.7 L Globulin 3.7 Albumin/Globulin Ratio 0.7 L Lipase Hepatitis A IgM Ab Pending Hepatitis A Ab Total Pending Hep Bs Antigen Pending Hep B Core Total Ab Pending Hep B Core IgM Ab Pending Assessment/Plan All Active Problems (Last Reviewed 03/31/18 @ 11:39 by Romeo Baeza MD) Diverticulitis (Acute) Elevated bilirubin (Acute) Demand ischemia of myocardium (Resolved 03/13/18) ESRD. seen on HD today. see orders/ flowsheets Ascitis. new onset. did not have issues before. Hep B was negative in dialysis unit. Bilirubin slightly high with hepatomegaly. work up ongoing. fluid removal as tolerated Anemia. CHRISTOPHER with outpt HD. Hb is acceptable
--- NOTE | 2018-09-22 13:41 | CON.PCM_ITS ---
Problem List (1) ESRD on dialysis Status: Chronic Consultation - Renal 09/22/18 PCP/ Referring MD: Requesting physician: Dr Grier Primary care physician: No Primary Care Phys Reason for Consultation:: ESRD - History of Present Illness History of Present Illness: The patient is a 43 year old M well known to us. ESRD on HD MWF schedule. last HD was tuesday. works somewhat busy schedule admitted with abdomen pain. CT abd showed diverticulitis, new onset ascitis, hepatomegaly fairly compliant with dialysis - Allergies Allergies: Allergies Rbttdtz-Cvv-Lzk Reductase Inhibitor Allergy (Verified 09/21/18 22:20) Other - Current Medications Current Medications: Current Medications Acetaminophen (Tylenol) 650 mg PO Q6H PRN PRN PRN Reason: Non-cardiac pain (mod-severe) Hydrocodone Bitart/Acetaminophen ([place] 5mg-325mg) 1 - 2 tablet PO Q6H PRN PRN PRN Reason: MOD-SEVERE PAIN (4-10/10) Last Admin: 09/22/18 06:26 Dose: 2 tablet Al Hydroxide/Mg Hydroxide (Mylanta Ii) 15 - 30 ml PO Q4H PRN PRN PRN Reason: INDIGESTION Albuterol Sulfate (Ventolin Aerosols) 2.5 mg INHALATION Q2H PRN PRN PRN Reason: dyspnea, wheezing Amlodipine Besylate (Norvasc) 10 mg PO DAILY [facility] Last Admin: 09/22/18 09:45 Dose: 10 mg Calcium Acetate (Phoslo Gel Cap) 667 mg PO TIDCM [facility] Last Admin: 09/22/18 12:12 Dose: 667 mg Carvedilol (Coreg) 25 mg PO BID [facility] Last Admin: 09/22/18 09:45 Dose: 25 mg Clonidine HCl (Catapres-Tts1) 0.1 mg TRANSDERM. QWEEK@1000 [facility] Last Admin: 09/22/18 02:30 Dose: 0.1 mg Dextrose (D50w Syringe) 0 gm IV X1 PRN; Protocol PRN Reason: Hypoglycemia Furosemide (Lasix) 80 mg PO DAILY [facility] Last Admin: 09/22/18 09:45 Dose: 80 mg Glucagon () 1 mg IM .X1 PRN PRN Reason: Hypoglycemia Heparin Sodium (Porcine) (Heparin Na) 5,000 unit SC Q12 [facility] Last Admin: 09/22/18 09:48 Dose: Not Given Hydralazine HCl (Apresoline Iv) 10 mg IV Q4H PRN PRN PRN Reason: SBP > 160 Pantoprazole Sodium 40 mg/ (Sodium Chloride) 110 mls @ 330 mls/hr IV Q12 [facility] Last Admin: 09/22/18 09:39 Dose: 330 mls/hr Piperacillin Sod/Tazobactam (Sod 3.375 gm/ Sodium Chloride) 50 mls @ 12.5 mls/hr IV Q12 [facility] Last Admin: 09/22/18 09:45 Dose: 12.5 mls/hr Losartan Potassium (Cozaar) 50 mg PO BID [facility] Last Admin: 09/22/18 09:45 Dose: 50 mg Melatonin (Melatonin) 3 mg PO QHS PRN PRN PRN Reason: INSOMNIA Morphine Sulfate () 1 - 2 mg IV Q4H PRN PRN PRN Reason: PAIN Ondansetron HCl (Zofran) 4 mg IV Q8H PRN PRN PRN Reason: NAUSEA/VOMITING Sodium Chloride () 5 - 15 ml IV UD PRN PRN Reason: SALINE FLUSH - Past Medical History Past Medical History (Chronic Problems): Chronic Problems (Last Reviewed 03/31/18 @ 11:39 by Romeo Baeza MD) CHF (congestive heart failure) (Chronic) Nicotine dependence (Chronic) Non-rheumatic tricuspid valve insufficiency (Chronic) Secondary pulmonary arterial hypertension (Chronic) Cardiomyopathy in diseases classified elsewhere (Chronic) Acute combined systolic (congestive) and diastolic (congestive) heart failure (Chronic) ESRD on dialysis (Chronic) Renal transplant recipient (Chronic) Obesity (Chronic) - Past Surgical History Surgical History: - - History of renal transplant, surgery for ureteral rupture, AVF. - Social History Smoking Status: Current every day smoker Alcohol: None Drugs: None - Family History Maternal History Items: Seizures Paternal History Items: Cancer - Father of stomach cancer Review of Systems Constitutional: Denies: Chills, Fever, Weight Change HEENT: Denies: Head Aches, Sinus Congestion, Sinus Drainage Cardiovascular: Denies: Chest Pain, Palpitations Respiratory: Denies: Cough, Shortness of breath at rest, Sputum production Gastrointestinal: Denies: Abdominal Pain, Nausea, Vomiting Genitourinary: Denies: Dysuria Musculoskeletal: Denies: Joint Pain, Joint Tenderness Skin: Denies: Rash, Wounds Neurological: Denies: Numbness, Tingling, Focal weakness Psychiatric: Denies: Anxiety, Depression, Homicidal Ideations, Suicidal Ideations Hematologic/ Lymphatic: Denies: Easy Bruising, Easy Bleeding Patient Problems: Active and Suspected Problems (Last Reviewed 03/31/18 @ 11:39 by Romeo Baeza MD) Diverticulitis (Acute) Elevated bilirubin (Acute) - Physical Exam General: Alert, Oriented x3, Cooperative HEENT: Atraumatic, PERRLA, EOMI, Normocephalic Neck: Supple, No JVD, Negative Carotid Bruits Lungs: Clear to auscultation, Normal air movement Cardiovascular: Regular rate, No murmurs Abdomen: Bowel Sounds Present, Soft, Non Tender Extremities: No edema, Capillary Refill Less than 3 Seconds Skin: No rashes, No breakdown Musculoskeletal: No Tenderness to Palpation of Joints or Extremities Neurological: Cranial nerves II-XII grossly intact Psych/Mental Status: Normal Affect, Appropriate Vital Signs Temp Pulse Resp BP Pulse Ox 98.0 F 81 16 135/90 H 97 09/22/18 09:39 09/22/18 09:39 09/22/18 09:39 09/22/18 09:39 09/22/18 09:39 Oxygen Flow Rate (L/min) 2 Oxygen Delivery Method Room Air Weight: 98.7 kg Body Mass Index (BMI) 30.9 Intake and Output for Last 24 Hours 09/20/18 09/21/18 09/22/18 23:59 23:59 23:59 Intake Total 565.8 / 565.8 Output Total 0 / 0 Balance 565.8 / 565.8 Laboratory Tests Past 24 Hrs 09/21/18 09/21/18 09/22/18 23:16 23:16 05:10 WBC 10.3 14.6 H RBC 3.49 L 3.24 L Hgb 11.7 L 10.5 L Hct 36.0 L 33.8 L MCV 103.2 H 104.3 H MCH 33.5 H 32.4 H MCHC 32.5 31.1 L RDW 14.3 13.9 RDW Differential 54.1 H 52.0 H Plt Count 127 L 109 L MPV 10.3 10.8 Immature Gran % (Auto) 0.100 0.300 Neut % (Auto) 92.8 H 91.4 H Lymph % (Auto) 2.1 L 2.7 L [place] % (Auto) 4.7 5.4 Eos % (Auto) 0.2 0.1 Baso % (Auto) 0.1 0.1 Absolute Neuts (auto) 9.5 H 13.4 H Absolute Lymphs (auto) 0.22 L 0.39 L Total Counted Not Reportable Not Reportable Differential Comment SCANNED PT INR Sodium 134 L Potassium 3.9 Chloride 95 L Carbon Dioxide 31.0 Anion Gap 8 BUN 39 H Creatinine 7.71 H* Estim Creat Clear Calc 12.89 Est GFR (MDRD) Af Amer 10 L Est GFR (MDRD) Non-Af 8 L BUN/Creatinine Ratio 5.1 L Glucose 108 H Calcium 9.3 Total Bilirubin 2.80 H Direct Bilirubin 1.77 H AST 12 L ALT 22 Alkaline Phosphatase 262 H Total Protein 6.9 Albumin 3.2 Globulin 3.7 Albumin/Globulin Ratio Lipase 97 Hepatitis A IgM Ab Hepatitis A Ab Total Hep Bs Antigen Hep B Core Total Ab Hep B Core IgM Ab 09/22/18 09/22/18 09/22/18 05:10 11:50 11:50 WBC RBC Hgb Hct MCV MCH MCHC RDW RDW Differential Plt Count MPV Immature Gran % (Auto) Neut % (Auto) Lymph % (Auto) [place] % (Auto) Eos % (Auto) Baso % (Auto) Absolute Neuts (auto) Absolute Lymphs (auto) Total Counted Differential Comment PT 19.7 H INR 1.7 Sodium 138 Potassium 3.9 Chloride 96 L Carbon Dioxide 29.0 Anion Gap 13 BUN 42 H Creatinine 8.07 H* Estim Creat Clear Calc 12.31 Est GFR (MDRD) Af Amer 10 L Est GFR (MDRD) Non-Af 8 L BUN/Creatinine Ratio 5.2 L Glucose 105 Calcium 9.0 Total Bilirubin 3.10 H Direct Bilirubin AST 11 L ALT 21 Alkaline Phosphatase 211 H Total Protein 6.4 Albumin 2.7 L Globulin 3.7 Albumin/Globulin Ratio 0.7 L Lipase Hepatitis A IgM Ab Pending Hepatitis A Ab Total Pending Hep Bs Antigen Pending Hep B Core Total Ab Pending Hep B Core IgM Ab Pending Assessment/Plan All Active Problems (Last Reviewed 03/31/18 @ 11:39 by Romeo Baeza MD) Diverticulitis (Acute) Elevated bilirubin (Acute) Demand ischemia of myocardium (Resolved 03/13/18) ESRD. seen on HD today. see orders/ flowsheets Ascitis. new onset. did not have issues before. Hep B was negative in dialysis unit. Bilirubin slightly high with hepatomegaly. work up ongoing. fluid removal as tolerated Anemia. CHRISTOPHER with outpt HD. Hb is acceptable
--- NOTE | 2018-09-22 15:13 | PCM.DC.SUM ---
Discharge Date and Diagnosis Date of Admission: 09/22/18 Date of Discharge: 09/22/18 - Primary Discharge Diagnosis Active and Suspected Problems (Last Reviewed 03/31/18 @ 11:39 by Romeo Baeza MD) 1. Acute abdominal pain secondary to acute diverticulitis 2. Moderate anasarca, ascites 3. Elevated bilirubin 4. Hepatomegaly 5. Chronic combined diastolic and systolic CHF 6. End-stage renal disease with prior renal transplant, failed 7. Hypertension 8. Hyperlipidemia 9. Anemia of chronic disease 10. Tobacco dependence 11. GERD 12. Obesity - Secondary Discharge Diagnosis Chronic Problems (Last Reviewed 03/31/18 @ 11:39 by Romeo Baeza MD) CHF (congestive heart failure) (Chronic) Nicotine dependence (Chronic) Non-rheumatic tricuspid valve insufficiency (Chronic) Secondary pulmonary arterial hypertension (Chronic) Cardiomyopathy in diseases classified elsewhere (Chronic) Acute combined systolic (congestive) and diastolic (congestive) heart failure (Chronic) ESRD on dialysis (Chronic) Renal transplant recipient (Chronic) Obesity (Chronic) Hospital Course and Treatment Imaging Results: Diagnostic Data Abdomen/Pelvis CT 09/21/18 23:12 IMPRESSION: 1. Moderate volume ascites. Moderate anasarca. Trace right pleural effusion. 2. Moderate wall thickening of the junction of descending and sigmoid colon with findings which may represent superimposed diverticulitis. This is incompletely assessed given the degree of ascites. 3. Transplant kidney right iliac fossa without hydronephrosis. Severe bilateral [place] renal atrophy. 4. Hepatosplenomegaly. Individualized dose optimization techniques were used for this CT. at 0024 Reported and signed by: Arsh Lauren MD Electronically Signed: Arsh Lauren MD at 0:23 EDT Tel , Service support , Abdomen Ultrasound 09/22/18 01:38 IMPRESSION: Hepatomegaly. Small amount of pericholecystic fluid. The transplanted kidney is unremarkable. Electronically Signed: Colin Dwyer, at 10:07 EDT , Service support , Operations: None Procedures: Dialysis Summary of Care Provided: The patient is a 43 year old M admitted 09/22/2018 due to abdominal pain. 1. Acute abdominal pain secondary to acute diverticulitis-CT of abdomen and pelvis on admission shows moderate volume ascites, moderate anasarca, trace right pleural effusion. Moderate wall thickening of the junction of the descending and sigmoid colon with findings which may represent diverticulitis. IV Zosyn during admission. Patient with fever and leukocytosis. 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 Did send an Rx for Augmentin to 50 mg twice daily for 10 days. Recommend follow-up with primary care provider in 1 week. 2. Moderate anasarca, ascites-Per radiology, not enough for paracentesis. Suspect secondary to fluid overload as a result of end-stage renal disease. Dialysis x1 during admission. 3. Elevated bilirubin-unclear etiology. Recommend further work-up regarding #4. Abdominal ultrasound shows hepatomegaly, small amount of suad-cholecystic fluid. 4. Hepatomegaly-unclear etiology. Hepatitis panel drawn. Recommend close outpatient follow-up. 5. Chronic combined diastolic and systolic CHF-continue dialysis regimen. Continue home aspirin, Coreg, losartan, Lasix regimen. 6. End-stage renal disease with prior renal transplant, failed-continue Tuesday, Tuesday, Tuesday dialysis regimen. Dialysis x1 during admission. 7. Hypertension-stable, continue home Norvasc, Coreg, clonidine, losartan, Lasix regimen. 8. Hyperlipidemia-continue statin 9. Anemia of chronic disease-at baseline. 10. Tobacco dependence-encourage cessation. 11. GERD-continue PPI. 12. Obesity-encourage diet lifestyle modifications. Patient seen and examined prior to discharge. Physical assessment as noted above. 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 Recommended close follow up with PCP. This patient was seen by AROLDO Leon under the supervision of Dr. Overton. - Physical Exam General: Alert, Oriented x3, Cooperative HEENT: Atraumatic, PERRLA, EOMI, Normocephalic Oral: - - Poor dentition Neck: Supple, No JVD, Negative Carotid Bruits Lungs: Clear to auscultation, Normal air movement Cardiovascular: Regular rate, Regular Rhythm, Normal S1, Normal S2, No murmurs Abdomen: Bowel Sounds Present, Soft, Non Tender, Non-Distended, Obese Extremities: No clubbing, No cyanosis, Capillary Refill Less than 3 Seconds, Edema - Nonpitting bilateral extremities, - - Left upper extremity AV fistula Skin: No rashes, No breakdown Musculoskeletal: No Tenderness to Palpation of Joints or Extremities Neurological: Cranial nerves II-XII grossly intact, Neuro grossly intact Psych/Mental Status: Normal Affect, Appropriate Vital Signs Temp Pulse Resp BP Pulse Ox 98.0 F 81 16 135/90 H 97 09/22/18 09:39 09/22/18 09:39 09/22/18 09:39 09/22/18 09:39 09/22/18 09:39 Oxygen Flow Rate (L/min) 2 Oxygen Delivery Method Room Air Weight: 217 lb 9.54 oz Body Mass Index (BMI) 30.9 Intake and Output for Last 24 Hours 09/20/18 09/21/18 09/22/18 23:59 23:59 23:59 Intake Total 565.8 / 565.8 Output Total 0 / 0 Balance 565.8 / 565.8 Laboratory Tests Past 24 Hrs 09/21/18 09/21/18 09/22/18 23:16 23:16 05:10 WBC 10.3 14.6 H RBC 3.49 L 3.24 L Hgb 11.7 L 10.5 L Hct 36.0 L 33.8 L MCV 103.2 H 104.3 H MCH 33.5 H 32.4 H MCHC 32.5 31.1 L RDW 14.3 13.9 RDW Differential 54.1 H 52.0 H Plt Count 127 L 109 L MPV 10.3 10.8 Immature Gran % (Auto) 0.100 0.300 Neut % (Auto) 92.8 H 91.4 H Lymph % (Auto) 2.1 L 2.7 L [place] % (Auto) 4.7 5.4 Eos % (Auto) 0.2 0.1 Baso % (Auto) 0.1 0.1 Absolute Neuts (auto) 9.5 H 13.4 H Absolute Lymphs (auto) 0.22 L 0.39 L Total Counted Not Reportable Not Reportable Differential Comment SCANNED PT INR Sodium 134 L Potassium 3.9 Chloride 95 L Carbon Dioxide 31.0 Anion Gap 8 BUN 39 H Creatinine 7.71 H* Estim Creat Clear Calc 12.89 Est GFR (MDRD) Af Amer 10 L Est GFR (MDRD) Non-Af 8 L BUN/Creatinine Ratio 5.1 L Glucose 108 H Calcium 9.3 Total Bilirubin 2.80 H Direct Bilirubin 1.77 H AST 12 L ALT 22 Alkaline Phosphatase 262 H Total Protein 6.9 Albumin 3.2 Globulin 3.7 Albumin/Globulin Ratio Lipase 97 Hepatitis A IgM Ab Hepatitis A Ab Total Hep Bs Antigen Hep B Core Total Ab Hep B Core IgM Ab 09/22/18 09/22/18 09/22/18 05:10 11:50 11:50 WBC RBC Hgb Hct MCV MCH MCHC RDW RDW Differential Plt Count MPV Immature Gran % (Auto) Neut % (Auto) Lymph % (Auto) [place] % (Auto) Eos % (Auto) Baso % (Auto) Absolute Neuts (auto) Absolute Lymphs (auto) Total Counted Differential Comment PT 19.7 H INR 1.7 Sodium 138 Potassium 3.9 Chloride 96 L Carbon Dioxide 29.0 Anion Gap 13 BUN 42 H Creatinine 8.07 H* Estim Creat Clear Calc 12.31 Est GFR (MDRD) Af Amer 10 L Est GFR (MDRD) Non-Af 8 L BUN/Creatinine Ratio 5.2 L Glucose 105 Calcium 9.0 Total Bilirubin 3.10 H Direct Bilirubin AST 11 L ALT 21 Alkaline Phosphatase 211 H Total Protein 6.4 Albumin 2.7 L Globulin 3.7 Albumin/Globulin Ratio 0.7 L Lipase Hepatitis A IgM Ab Pending Hepatitis A Ab Total Pending Hep Bs Antigen Pending Hep B Core Total Ab Pending Hep B Core IgM Ab Pending Home Medications: Medications to take at Discharge Calcium Acetate 667 mg PO TID 03/12/18 Carvedilol 25 mg PO BID 03/12/18 Clonidine 1 each TD QWEEK 03/12/18 Losartan Potassium 50 mg PO BID 03/12/18 Amlodipine [Norvasc] 10 mg PO DAILY #30 tablet 03/13/18 Amox/Clavulanate Tablet [Augmentin Tablet] 250 mg PO Q12H #20 tablet 09/22/18 Furosemide [Lasix] 80 mg PO DAILY PRN PRN 09/22/18 Following Prescrptions Were Given to Patient: Amox/Clavulanate Tablet [Augmentin Tablet] 250 mg PO Q12H #20 tablet Primary Care Physician: Care Physician,No Primary [Primary Care Provider] - Please follow up with your Primary Care Physician in: 1 Week Disposition: Against Medical Advice Minutes spent on discharge:: 35 Patient Condition:: Stable Medical Necessity - Tobacco Use Smoking Status: Current every day smoker Tobacco Use: Cigarettes Meaningful Use Info Meaningful Use Diagnoses (Choose all that apply): None applicable
--- NOTE | 2018-09-22 16:58 | DIALYSIS ---
Pt tolerated 3.75hr HD tx well. Net UF -3000ml. See flow record for tx data.
--- NOTE | 2018-09-22 17:17 | NURSING ---
Patient was admitted for abdominal pain r/t newly diagnosed acute diverticulitis/ hepatomegaly. Pt educated on diagnosis and given recommendations by MD and medical team. Pt received dialysis during stay for his chronic renal failure. He decided he needed to leace AMA d/t work responsibilities he needs to take care of the following day. He was given a new prescription for an antibiotic and encouraged to f/u closely with PCP. AMA papers were signed by patient and RN
[2018-09-23 05:06] LABS: HEPATITIS B SURFACE AG Negative (Negative); Hepatitis A AB, Total Negative (Negative); Hepatitis A IgM Antibody Negative (Negative); Hepatitis B Core AB IgM Negative (Negative); Hepatitis B Core Ab Total Negative (Negative); Hepatitis C Ab <0.1 s/co ratio (0.0-0.9)
[2018-09-24 13:30] LABS: Hep B Surface Antibodies Reactive (.)
== END 2018-09-22 17:20 | disposition left against medical advice (07) ==
LOC: ED 09-22 00:37 → PCU 09-22 01:09
PROVIDERS: Nurse Practitioner Family; Admitting Provider Family Medicine; Emergency Provider Emergency Medicine; Visit Provider Internal Medicine
DX: K57.92 Diverticulitis of intestine, part unspecified, without perforation or abscess without bleeding (principal); I13.2 Hypertensive heart and chronic kidney disease with heart failure and with stage 5 chronic kidney disease, or end stage renal disease; N18.6 End stage renal disease; D63.8 Anemia in other chronic diseases classified elsewhere; R18.8 Other ascites; I27.21 Secondary pulmonary arterial hypertension; E66.9 Obesity, unspecified; F17.210 Nicotine dependence, cigarettes, uncomplicated; I42.9 Cardiomyopathy, unspecified; I50.43 Acute on chronic combined systolic (congestive) and diastolic (congestive) heart failure; Z99.2 Dependence on renal dialysis; Z94.0 Kidney transplant status; Z79.899 Other long term (current) drug therapy; Z68.31 Body mass index [BMI] 31.0-31.9, adult; Z71.3 Dietary counseling and surveillance; E78.5 Hyperlipidemia, unspecified; K21.9 Gastro-esophageal reflux disease without esophagitis; R17 Unspecified jaundice; R16.2 Hepatomegaly with splenomegaly, not elsewhere classified
CPT/HCPCS: 36415; 74176; 76705; 80048; 80053; 80076; 83690; 85025; 85610; 86704; 86705; 86706; 86708; 86709; 86803; 87340; 90937; 96365; 96366; 96367; 96375; 96376; 99218; 99284; 99406; J7030; J7040; A4216; G0257; G0378; J2405

== ENCOUNTER 2018-09-28 15:49 | Emergency (ER) | payer MEDICARE, SELFPAY ==
[2018-09-22 01:45] VITALS: BMI 30.9
[2018-09-28 15:50] VITALS: BP 117/84; PULSE 88; RESP 16; TEMP 36.7; O2SAT 96; BMI 29.4
[2018-09-28 15:51] VITALS: TEMP 36.7
--- NOTE | 2018-09-28 16:18 | CT_ITS ---
STUDY: CT ABDOMEN AND PELVIS WITHOUT CONTRAST REASON FOR EXAM: Male, 43 years old. Decreased appetite RADIATION DOSAGE (If Supplied By Facility): DLP = ( 934.89 ) mGycm TECHNIQUE: Transaxial images were obtained from the dome of the diaphragm to the symphysis pubis without oral contrast, and without intravenous contrast. Sagittal and coronal images were reconstructed. Individualized dose optimization techniques were used for this CT. COMPARISON: CT abdomen and pelvis September 21, 2018 FINDINGS: Evaluation of the abdominal viscera is limited in the absence of intravenous contrast. The visualized lung bases are clear. The visualized portions of the heart and pericardium are within normal limits. There are no calcified gallstones present. The liver is enlarged. No hepatic lesions are present. The spleen is enlarged. The pancreas demonstrates an unremarkable unenhanced appearance. The adrenal glands are within normal limits. 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 There is no hydronephrosis. Normal visualized stomach. There is suggested pneumatosis within central small bowel loops with areas of wall thickening. There is moderate to prominent ascites, increased from prior. Mild free air is present anterior to the liver adjacent to the gallbladder, at the ann hepatis, adjacent to the stomach, at the anterior left hemiabdomen, mesentery, and adjacent to small bowel loops. Colonic diverticulosis is present. There is mild thickening of the sigmoid colon. There are several areas of mild small bowel wall thickening. The aorta is normal in caliber. There are no destructive osseous lesions. CT/Abdomen/Pelvis without Cont IMPRESSION: Interval development of intraperitoneal free air, as well as findings suggesting diverticulitis/colitis and enteritis with suggested pneumatosis. Findings raise concern for perforated bowel although exact site is not definitively identified. Evaluation is limited without the administration of oral contrast. Intact right pelvic transplant kidney. Moderate to prominent ascites, increased from prior. Hepatosplenomegaly. N.B. : The above information has been verbally conveyed by Julio Muhammad to Hilda Muhammad MD, on 09/28/2018 17:14:29 (ET). Electronically Signed: Julio Muhammad, at 17:06 EDT Tel , Service support ,
--- NOTE | 2018-09-28 16:21 | ED.DCSUM_ITS ---
- ER Visit Summary Date of Service: 09/28/18 Chief Complaint: Weak, decreased appetite History of Present Illness: The patient is a 43 M who was seen and admitted on September 22 for diverticulitis and anasarca. He signed out the same day. He was given Augmentin 250 mg every 12 hours. Patient reports no improvement in his abdominal pain. He does admit to having diarrhea. He reports decreased p.o. intake due to lack of appetite. He did have full run at his dialysis appointments on the and the . He denies having a fever. Physical Examination: Vital signs are unremarkable. He is afebrile. Patient sitting upright in bed no acute distress. Heart is regular rate and rhythm. Lung sounds are clear. Abdomen is soft and slightly distended. Hypoactive bowel sounds are noted. He has mild tenderness in the mid and lower abdomen. No guarding or rebound. Extremity examination is significant for fistula in the left upper extremity. Test Results: CBC was a white count of 17.7 with 91% neutrophils. Hemoglobin is 10.8. Chemistry studies reveal a sodium of 133 and chloride 93. BUN is 52 and creatinine is 6.64. LFTs revealed total bili of 6.3 and direct bili 5.04. Alk phos is 400. AST and ALT are unremarkable. CT flank was obtained which reveals intraperitoneal free air. There is evidence of diverticulitis along with some areas of small bowel to have wall thickening and pneumatosis. When I spoke with the radiologist he states the free air is scattered and he is unsure of the site of perforation. Emergency Department Course and Treatment: Patient was not given IV fluids here secondary to his chronic renal failure status. Vital signs been stable. Upon completion of CT scan Zosyn 2.25 g was ordered. I spoke with Dr. Oconnor, on-call for surgery. Unfortunately he is heading into the OR with a case that is going to last at least 3 hours. It is after hours and there is only one surgery team marketing operations associate. He feels the patient should be transferred to another facility where he can be seen quicker. I have spoken with the transfer line at [facility] and patient has been accepted in transfer. He will be going to the emergency room. Treatment Plan: [] Disposition: Transfer Impression: 1. Diverticulitis 2. Enteritis 3. Free air in abdomen This note was generated with [employer] dictation software. It may contain incorrect words, spelling, and punctuation that were not noted in review of the chart prior to signing ED Disposition - Plan for ED Patient: Disposition: [facility] Referrals: Care Physician,No Primary [Primary Care Provider] -
[2018-09-28 16:41] LABS: Absolute Lymphocyte Count 0.94 X10^3/ul (0.83-4.51); Absolute Neutrophil Count 16.1 X10^3/uL (2.0-7.7); Basophil# 0.02 X10^3/uL; Basophil% 0.1 % (0-1); Eosinophil# 0.01 X10^3/uL; Eosinophils% 0.1 % (0-5); Hematocrit 32.3 % (40-54); Hemoglobin 10.8 g/dl (13.0-16.5); Lymphocyte # 0.94 X10^3/ul (4.0); Lymphocyte % 5.3 % (19-41); Mean Corp Hgb Conc 33.4 g/gl (32-36); Mean Corpuscular Hgb 32.8 pg (27.0-32.0); Mean Corpuscular Volume 98.2 fL (80-94); Monocyte# 0.52 X10^3/uL; Monocyte% 2.9 % (0-10); Neutrophil # 16.14 X10^3/uL (2.7-7.7); Neutrophil % 91.1 % (47-70); POSITIVE COUNT NO; POSITIVE DIFFERENTIAL NO; POSITIVE MORPHOLOGY NO; Platelet Count 327 K/mm3 (150-450); RBC Distribution Width CV 14.4 % (11.6-14.6); RBC Distribution Width SD 51.8 fl (35.1-43.9); Red Blood Count 3.29 M/mm3 (4.6-6.2); White Blood Count 17.7 K/mm3 (4.4-11.0)
[2018-09-28 16:51] VITALS: TEMP 36.7
[2018-09-28 16:54] LABS: AST(SGOT) 23 U/L (15-37); Alanine Aminotransfer ALT/SGPT 20 U/L (16-61); Albumin, Serum 2.1 g/dL (3.2-5.0); Alkaline Phosphatase 400 U/L (45-117); Anion Gap 7 (5-15); BUN 52 mg/dL (7-18); BUN/Creat Ratio 7.8 RATIO (10-20); Bilirubin, Direct 5.04 mg/dL (0.00-0.30); Calcium,Total 10.5 mg/dL (8.5-10.1); Chloride 93 mmol/L (98-107); Creatinine, Serum 6.64 mg/dL (0.70-1.30); EST Glomerular Filtration Rate 10 mL/min (>60); Est Glom Filt Rate - Afr Amer 12 mL/min (>60); Estimated Creatinine Clearance 14.96 ml/min; Globulin 4.3 g/dL (2.2-4.2); Glucose 121 mg/dL (74-106); Potassium 3.7 mmol/L (3.5-5.1); Protein, Total 6.4 g/dL (6.4-8.2); Sodium Level 133 mmol/L (136-145)
[2018-09-28 17:00] VITALS: TEMP 36.9
[2018-09-28 18:00] VITALS: BP 134/92; PULSE 89; RESP 19; TEMP 36.9; O2SAT 94
[2018-09-28] MEDS: fentaNYL 100 MCG/2 ML Ampul 25 MCG IV (18:53)
== END 2018-09-28 19:25 | disposition short-term general hospital (02) ==
LOC: ED 16:10
PROVIDERS: Emergency Provider Emergency Medicine
DX: K57.92 Diverticulitis of intestine, part unspecified, without perforation or abscess without bleeding (principal); K52.9 Noninfective gastroenteritis and colitis, unspecified; K66.8 Other specified disorders of peritoneum; N18.6 End stage renal disease; Z99.2 Dependence on renal dialysis; I50.9 Heart failure, unspecified; I27.20 Pulmonary hypertension, unspecified; Z79.899 Other long term (current) drug therapy; Z72.0 Tobacco use
CPT/HCPCS: 74176; 80048; 80076; 85025; 96361; 96365; 96366; 96374; 96375; 99284; J7030; J7050; A4216

== ENCOUNTER 2018-11-09 09:30 | Outpatient (RCR) | payer MEDICARE, SELFPAY ==
[2018-10-26 08:45] VITALS: BP 145/97; PULSE 88; RESP 18; TEMP 36.8; BMI 29.4
--- NOTE | 2018-10-26 13:16 | PCM.WC.HP ---
(1) Nonhealing surgical wound Status: Chronic Current Visit: Yes Code(s): T81.89XA - Other complications of procedures, not elsewhere classified, initial encounter Comment: Abdominal. With fat layer exposed. (2) ESRD on dialysis Status: Chronic Current Visit: Yes Code(s): N18.6 - End stage renal disease; Z99.2 - Dependence on renal dialysis History of Present Illness Date of Service: 10/26/18 Chief Complaint: Postsurgical wound management. History of Wound: Mr. Lehman is a 43-year-old whose referred to the wound center for management of his postsurgical wound. Had 4 weeks ago abdominal surgery at [facility] due to perforation from diverticulitis. Surgery was uneventful. Discharged home has been managed by wound care. Currently has a VAC applied to the abdominal wound patient states that there has been some improvement. He denies any significant/copious discharge. Denies chills, fever otherwise feeling of unwell. Past Medical History Past Medical History: Chronic Problems (Last Reviewed 03/31/18 @ 11:39 by Romeo Baeza MD) Nonhealing surgical wound (Chronic) Abdominal. With fat layer exposed. 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 Allergies/Adverse Reactions: Allergies Klemcqm-Pnp-Pnu Reductase Inhibitor Allergy (Verified 09/21/18 22:20) Other Home Medications: Ambulatory Orders Medication Instructions Recorded Calcium Acetate 667 mg PO TID 03/12/18 Carvedilol 25 mg PO BID 03/12/18 Furosemide [Lasix] 80 mg PO DAILY PRN PRN 09/22/18 Amlodipine [Norvasc] 10 mg PO DAILY 09/28/18 Cinacalcet HCl 90 mg PO 10/26/18 Darbepoetin Vikash in Polysorbat 40 mcg IJ 10/26/18 [Aranesp] Melatonin 1 mg PO 10/26/18 Pantoprazole Sodium [Protonix] 40 mg PO DAILY 10/26/18 Sevelamer Carbonate 10/26/18 - Family History Maternal Seizures Paternal Cancer - Father of stomach cancer Smoking Status: Current some day smoker Review of Systems Constitutional: Denies: Anorexia, Chills, Fever Eyes: Denies: Blurred vision, Pain, Redness HEENT: Denies: Difficulty Swallowing Cardiovascular: Denies: Chest Pain, Chest Pressure Gastrointestinal: Denies: Abdominal Pain, Hematemesis, Vomiting Skin: Denies: Jaundice - Physical Exam Vital Signs Temp Pulse Resp BP 98.3 F 88 18 145/97 H 10/26/18 08:45 10/26/18 08:45 10/26/18 08:45 10/26/18 08:45 General: Alert, Oriented x3, Cooperative, No apparent distress HEENT: Atraumatic, Normocephalic Oral: Moist Mucosa Neck: Supple Lungs: Normal air movement Cardiovascular: Regular rate, Regular Rhythm, Normal S1, Normal S2 Abdomen: Soft, Non Tender Extremities: No cyanosis, No edema Skin: Ulcer/ Wound Wound Measurements and Assessment WC - Nurse 1 - General Ulcer Measurement Start: 10/26/18 08:45 Freq: Status: Active Protocol: Activity Type Activity Date Activity User E-Sign Co-Sign Detail Recorded Client Recorded Date Recorded By Document 10/26/18 08:45 DL [id number] 10/26/18 09:12 DL 10/26/18 08:45 Wound Center Nurse 1 [Ulcer Assessment] #1 Abd -Current Size (cm) - Length 16 -Current Size (cm) - Width 2 -Current Size (cm) - Depth 0.3 -Total Square Cm 32 -Photo Taken Yes -Exudate Amt Small -Exudate Type Serosanguineous -Wound Margin Distinct, Outline Attached -Granulation Amt Large (67-100%) -Granulation Quality Red -Necrosis Amt Small (1-33%) -Necrotic Tissue Type Adherent Slough -Structure Exposed N/A -Texture (Mayra-wound Skin Appearance) Scarring -Moisture (Mayra-wound Skin Appearance No Abnormality ) -Color (Mayra-wound Skin Appearance) Rubor -Temperature (Mayra-wound Skin No Abnormality Appearance) (Pt Warm) -Tenderness on Palpation (Mayra-wound No Skin Appearance) -Ulcer Cleansing Rinsed/ Irrigated with Saline -Foul Odor after Cleansing No -Anesthetic Used 5% Lidocaine Gel WC - Nurse 2 - General Ulcer CM Notes Start: 10/26/18 08:45 Freq: Status: Active Protocol: Activity Type Activity Date Activity User E-Sign Co-Sign Detail Recorded Client Recorded Date Recorded By Document 10/26/18 09:55 MW [id number] 10/26/18 10:02 MW 10/26/18 09:55 Wound Center Nurse 2 [Procedure/Treatment] -Time 09:55 -Correct Patient Yes -Correct Side, Site, Position Yes -Correct Procedure Yes -Procedure Performed Yes -Type of Procedure Debridement -Clinical Debridement Subcutaneous -Post Debridement Size (cm) - Length 18.0 -Post Debridement Size (cm) - Width 2.5 -Post Debridement Size (cm) - Depth 0.7 -Total Square Cm 45.00 -Wound/Ulcer Outcome Not Healed -Ulcer Cleansing Rinsed/ Irrigated with Saline -Foul Odor after Cleansing No -Bioengineered Tissue No -Bleeding Controlled with Pressure -Offloading No -Treatment Response Procedure Tolerated Well [See Physician Procedure note for Specifics] Pain Scale: 0-10 Numeric [Pain] -Is Patient Pain Free? Yes Neurological: Cranial nerves II-XII grossly intact Psych/Mental Status: Normal Affect Debridement Note Post-Debridement Measurements/Treatment WC - Nurse 2 - General Ulcer CM Notes Start: 10/26/18 08:45 Freq: Status: Active Protocol: Activity Type Activity Date Activity User E-Sign Co-Sign Detail Recorded Client Recorded Date Recorded By Document 10/26/18 09:55 MW [id number] 10/26/18 10:02 MW 10/26/18 09:55 Wound Center Nurse 2 #1 Abd -Time 09:55 -Correct Patient Yes -Correct Side, Site, Position Yes -Correct Procedure Yes -Procedure Performed Yes -Type of Procedure Debridement -Clinical Debridement Subcutaneous -Post Debridement Size (cm) - Length 18.0 -Post Debridement Size (cm) - Width 2.5 -Post Debridement Size (cm) - Depth 0.7 -Total Square Cm 45.00 -Wound/Ulcer Outcome Not Healed -Ulcer Cleansing Rinsed/ Irrigated with Saline -Foul Odor after Cleansing No -Bioengineered Tissue No -Bleeding Controlled with Pressure -Offloading No -Treatment Response Procedure Tolerated Well Pain Scale: 0-10 Numeric Is Patient Pain Free? Yes Wound debrided: Midline abdominal Wound Grade/Stage: Stage III Type of Debridement: Excisional debridement Anesthesia Used: 4% Lidocaine Solution Depth: Down to and including healthy tissue, in the subcutaneous layer Percentage of wound debrided: 100 Instrument Used: 5mm curette Tissue Removed: Slough and devitalized tissue Severity: Fat Layer Exposed Amount of bleeding with debridement: Mild Bleeding Controlled with: Pressure Patient tolerated procedure well Assessment/Plan Active Problems (Last Reviewed 03/31/18 @ 11:39 by Romeo Baeza MD) Nonhealing surgical wound (Chronic) Abdominal. With fat layer exposed. ESRD on dialysis (Chronic) Assessment: Same as above Plan: Debridement done as documented above. Procedure was well-tolerated. Continue wound VAC at 125 mmHg. Change on Tuesdays and Fridays due to dialysis on other days. Wet to dry applied today and wound VAC will be reapplied tomorrow. Increased protein intake recommended. Follow-up in 1 week. All their questions were answered and they were advised to call with any questions or concerns. This note was generated with [employer] software. It may contain incorrect words, spelling, and punctuation that were not noted in checking the note before signing.
[2018-11-02 08:29] VITALS: BP 148/109; PULSE 100; RESP 16; TEMP 36.6; BMI 29.4
--- NOTE | 2018-11-02 08:56 | PN.PCM_ITS ---
(1) Nonhealing surgical wound Status: Chronic Current Visit: Yes Code(s): T81.89XA - Other complications of procedures, not elsewhere classified, initial encounter Comment: Abdominal. With fat layer exposed. (2) ESRD on dialysis Status: Chronic Current Visit: Yes Code(s): N18.6 - End stage renal disease; Z99.2 - Dependence on renal dialysis Type of Wound Date of Service: 11/02/18 Chief Complaint: Postsurgical wound management. History of Wound: Mr. Lehman is a 43-year-old whose referred to the wound center for management of his postsurgical wound. Had 4 weeks ago abdominal surgery at [facility] due to perforation from diverticulitis. Surgery was uneventful. Discharged home has been managed by wound care. Currently has a VAC applied to the abdominal wound patient states that there has been some improvement. He denies any significant/copious discharge. Denies chills, fever otherwise feeling of unwell. Progress of Wound: He denies any new concerns at this time. New tunnels noted. - Physical Exam Vital Signs Temp Pulse Resp BP 97.8 F 100 16 148/109 H 11/02/18 08:29 11/02/18 08:29 11/02/18 08:29 11/02/18 08:29 General: Alert, Oriented x3, Cooperative, No apparent distress HEENT: Atraumatic, Normocephalic Oral: Moist Mucosa Neck: Supple Lungs: Normal air movement Abdomen: Soft Extremities: No cyanosis Skin: Ulcer/ Wound Wound Measurements and Assessment WC - Nurse 1 - General Ulcer Measurement Start: 10/26/18 08:45 Freq: Status: Active Protocol: Activity Type Activity Date Activity User E-Sign Co-Sign Detail Recorded Client Recorded Date Recorded By Document 11/02/18 08:29 [id number] 11/02/18 08:43 11/02/18 08:29 Wound Center Nurse 1 [Ulcer Assessment] #1 Abd -Combined with other wound No -Current Size (cm) - Length 16.1 -Current Size (cm) - Width 1.7 -Current Size (cm) - Depth 0.5 -Total Square Cm 27.37 -Photo Taken No -Epithelialization Small 1-33% -Tunneling No -Undermining/Tunneling No -Circular Undermining No -Exudate Amt Medium -Exudate Type Serosanguineous -Wound Margin Distinct, Outline Attached -Granulation Amt Large (67-100%) -Granulation Quality Red -Slough/Fibrin Yes -Necrosis Amt None Present (0 %) -Necrotic Tissue Type Adherent Slough -Structure Exposed None/Limited to Skin Breakdown -Texture (Mayra-wound Skin Appearance) No Abnormality, Assessed -Moisture (Mayra-wound Skin Appearance Maceration ) -Color (Mayra-wound Skin Appearance) No Abnormality, Assessed -Temperature (Mayra-wound Skin No Abnormality Appearance) (Pt Warm) -Tenderness on Palpation (Mayra-wound No Skin Appearance) -Ulcer Cleansing Rinsed/ Irrigated with Saline -Foul Odor after Cleansing No -Anesthetic Used 5% Lidocaine Gel [Edema Assessment] -Lower Limb Edema Present NA - Nurse 2 - General Ulcer CM Notes Start: 10/26/18 08:45 Freq: Status: Active Protocol: Activity Type Activity Date Activity User E-Sign Co-Sign Detail Recorded Client Recorded Date Recorded By Document 11/02/18 08:49 MW [id number] 11/02/18 08:54 MW 11/02/18 08:49 Wound Center Nurse 2 [Procedure/Treatment] #1 Abd -Time 08:49 -Correct Patient Yes -Correct Side, Site, Position Yes -Correct Procedure Yes -Procedure Performed Yes -Type of Procedure Debridement -Clinical Debridement Subcutaneous -Post Debridement Size (cm) - Length 15.0 -Post Debridement Size (cm) - Width 1.5 -Post Debridement Size (cm) - Depth 0.7 -Total Square Cm 22.50 -Wound/Ulcer Outcome Not Healed -Ulcer Cleansing Rinsed/ Irrigated with Saline -Foul Odor after Cleansing No -Bioengineered Tissue No -Bleeding Controlled with Pressure -Offloading No -Treatment Response Procedure Tolerated Well [See Physician Procedure note for Specifics] Pain Scale: 0-10 Numeric [Pain] -Is Patient Pain Free? Yes Musculoskeletal: No Muscle Wasting Neurological: Cranial nerves II-XII grossly intact Psych/Mental Status: Normal Affect Debridement Note Post-Debridement Measurements/Treatment - Nurse 2 - General Ulcer CM Notes Start: 10/26/18 08:45 Freq: Status: Active Protocol: Activity Type Activity Date Activity User E-Sign Co-Sign Detail Recorded Client Recorded Date Recorded By Document 10/26/18 09:55 MW [id number] 10/26/18 10:02 MW Document 11/02/18 08:49 MW [id number] 11/02/18 08:54 MW 10/26/18 11/02/18 09:55 08:49 Wound Center Nurse 2 #1 Abd -Time 09:55 08:49 -Correct Patient Yes Yes -Correct Side, Site, Position Yes Yes -Correct Procedure Yes Yes -Procedure Performed Yes Yes -Type of Procedure Debridement Debridement -Clinical Debridement Subcutaneous Subcutaneous -Post Debridement Size (cm) - Length 18.0 15.0 -Post Debridement Size (cm) - Width 2.5 1.5 -Post Debridement Size (cm) - Depth 0.7 0.7 -Total Square Cm 45.00 22.50 -Wound/Ulcer Outcome Not Healed Not Healed -Ulcer Cleansing Rinsed/ Rinsed/ Irrigated with Irrigated with Saline Saline -Foul Odor after Cleansing No No -Bioengineered Tissue No No -Bleeding Controlled with Pressure Pressure -Offloading No No -Treatment Response Procedure Procedure Tolerated Well Tolerated Well Pain Scale: 0-10 Numeric Is Patient Pain Free? Yes Yes Wound debrided: Midline Abdomen Wound Grade/Stage: Stage III Type of Debridement: Excisional debridement Anesthesia Used: 4% Lidocaine Solution Depth: Down to and including healthy tissue, in the subcutaneous layer Percentage of wound debrided: 100 Instrument Used: 7mm curette Tissue Removed: Slough and devitalized tissue Severity: Fat Layer Exposed Amount of bleeding with debridement: Mild Bleeding Controlled with: Pressure Patient tolerated procedure well Assessment/Plan Active Problems (Last Reviewed 03/31/18 @ 11:39 by Romeo Baeza MD) Nonhealing surgical wound (Chronic) Abdominal. With fat layer exposed. ESRD on dialysis (Chronic) Assessment: Same as above Plan: Debridement done as documented above. Procedure was well-tolerated. Tunnels noted at 6'o clock. Increase wound VAC to 150 mmHg. Change on Tuesdays and Fridays due to dialysis on other days. Wet to dry applied today and wound VAC will be reapplied tomorrow. Foiam to the tunnels as well. Increased protein intake recommended. Follow-up in 1 week. All their questions were answered and they were advised to call with any questions or concerns. This note was generated with [employer] software. It may contain incorrect words, spelling, and punctuation that were not noted in checking the note before signing.
[2018-11-09 09:30] VITALS: BP 159/107; PULSE 90; RESP 18; TEMP 37.1; BMI 29.4
--- NOTE | 2018-11-09 10:11 | PCM.WC.PN ---
(1) Nonhealing surgical wound Status: Chronic Current Visit: Yes Code(s): T81.89XA - Other complications of procedures, not elsewhere classified, initial encounter Comment: Abdominal. With fat layer exposed. (2) ESRD on dialysis Status: Chronic Current Visit: Yes Code(s): N18.6 - End stage renal disease; Z99.2 - Dependence on renal dialysis Type of Wound Date of Service: 11/09/18 Chief Complaint: Postsurgical wound management. History of Wound: Mr. Lehman is a 43-year-old whose referred to the wound center for management of his postsurgical wound. Had 4 weeks ago abdominal surgery at [facility] due to perforation from diverticulitis. Surgery was uneventful. Discharged home has been managed by wound care. Currently has a VAC applied to the abdominal wound patient states that there has been some improvement. He denies any significant/copious discharge. Denies chills, fever otherwise feeling of unwell. Progress of Wound: He denies any new concerns at this time. - Physical Exam Vital Signs Temp Pulse Resp BP 98.7 F 90 18 159/107 H 11/09/18 09:30 11/09/18 09:30 11/09/18 09:30 11/09/18 09:30 General: Alert, Oriented x3, Cooperative, No apparent distress HEENT: Atraumatic, Normocephalic Oral: Moist Mucosa Neck: Supple Lungs: Normal air movement Abdomen: Soft, Non Tender Extremities: No cyanosis Skin: Ulcer/ Wound Wound Measurements and Assessment WC - Nurse 1 - General Ulcer Measurement Start: 10/26/18 08:45 Freq: Status: Active Protocol: Activity Type Activity Date Activity User E-Sign Co-Sign Detail Recorded Client Recorded Date Recorded By Document 11/09/18 09:30 DV [id number] 11/09/18 10:04 DV 11/09/18 09:30 Wound Center Nurse 1 [Ulcer Assessment] #1 Abd -Combined with other wound No -Current Size (cm) - Length 13.0 -Current Size (cm) - Width 1.0 -Current Size (cm) - Depth 0.2 -Total Square Cm 13.00 -Photo Taken No -Epithelialization Small 1-33% -Tunneling Yes -Tunneling Position (O'clock) 6 -Tunneling Distance (cm) 0.8 -Classification - Thickness Full Thickness without Exposed Support Structure -Exudate Amt Medium -Exudate Type Serosanguineous -Wound Margin Flat & Intact -Granulation Amt Medium (34-66%) -Granulation Quality Pale,[place],Red -Slough/Fibrin Yes -Necrosis Amt Medium (34-66%) -Necrotic Tissue Type Adherent Slough -Structure Exposed None/Limited to Skin Breakdown -Texture (Mayra-wound Skin Appearance) Assessed, Scarring -Moisture (Mayra-wound Skin Appearance Assessed, ) Weeping -Color (Mayra-wound Skin Appearance) Assessed, Mottled -Temperature (Mayra-wound Skin No Abnormality Appearance) (Pt Warm) -Tenderness on Palpation (Mayra-wound No Skin Appearance) -Foul Odor after Cleansing No -Anesthetic Used 4% Lidocaine Solution,5% Lidocaine Gel WC - Nurse 2 - General Ulcer CM Notes Start: 10/26/18 08:45 Freq: Status: Active Protocol: Activity Type Activity Date Activity User E-Sign Co-Sign Detail Recorded Client Recorded Date Recorded By Document 11/09/18 10:04 MW [id number] 11/09/18 10:09 MW 11/09/18 10:04 Wound Center Nurse 2 [Procedure/Treatment] -Time 10:04 -Correct Patient Yes -Correct Side, Site, Position Yes -Correct Procedure Yes -Procedure Performed Yes -Type of Procedure Debridement -Clinical Debridement Subcutaneous -Post Debridement Size (cm) - Length 13.0 -Post Debridement Size (cm) - Width 0.8 -Post Debridement Size (cm) - Depth 0.4 -Total Square Cm 10.40 -Wound/Ulcer Outcome Not Healed -Ulcer Cleansing Rinsed/ Irrigated with Saline -Foul Odor after Cleansing No -Bioengineered Tissue No -Bleeding Controlled with Pressure -Other tunnel @ 6 -1. 2cm -Offloading No -Treatment Response Procedure Tolerated Well [See Physician Procedure note for Specifics] Pain Scale: 0-10 Numeric [Pain] -Is Patient Pain Free? Yes Musculoskeletal: No Muscle Wasting Neurological: Cranial nerves II-XII grossly intact Psych/Mental Status: Normal Affect Debridement Note Post-Debridement Measurements/Treatment WC - Nurse 2 - General Ulcer CM Notes Start: 10/26/18 08:45 Freq: Status: Active Protocol: Activity Type Activity Date Activity User E-Sign Co-Sign Detail Recorded Client Recorded Date Recorded By Document 10/26/18 09:55 MW [id number] 10/26/18 10:02 MW Document 11/02/18 08:49 MW [id number] 11/02/18 08:54 MW Document 11/09/18 10:04 MW [id number] 11/09/18 10:09 MW 10/26/18 11/02/18 11/09/18 09:55 08:49 10:04 Wound Center Nurse 2 #1 Abd -Time 09:55 08:49 10:04 -Correct Patient Yes Yes Yes -Correct Side, Site, Position Yes Yes Yes -Correct Procedure Yes Yes Yes -Procedure Performed Yes Yes Yes -Type of Procedure Debridement Debridement Debridement -Clinical Debridement Subcutaneous Subcutaneous Subcutaneous -Post Debridement Size (cm) - Length 18.0 15.0 13.0 -Post Debridement Size (cm) - Width 2.5 1.5 0.8 -Post Debridement Size (cm) - Depth 0.7 0.7 0.4 -Total Square Cm 45.00 22.50 10.40 -Wound/Ulcer Outcome Not Healed Not Healed Not Healed -Ulcer Cleansing Rinsed/ Rinsed/ Rinsed/ Irrigated with Irrigated with Irrigated with Saline Saline Saline -Foul Odor after Cleansing No No No -Bioengineered Tissue No No No -Bleeding Controlled with Pressure Pressure Pressure -Other tunnel @ 6 -1. 2cm -Offloading No No No -Treatment Response Procedure Procedure Procedure Tolerated Well Tolerated Well Tolerated Well Pain Scale: 0-10 Numeric Is Patient Pain Free? Yes Yes Yes Wound debrided: Midline abdominal Wound Grade/Stage: Stage III Type of Debridement: Excisional debridement Anesthesia Used: 4% Lidocaine Solution Depth: Down to and including healthy tissue, in the subcutaneous layer Percentage of wound debrided: 100 Instrument Used: 3mm curette Tissue Removed: SLough and devitalized tissue Severity: Fat Layer Exposed Amount of bleeding with debridement: Mild Bleeding Controlled with: Pressure Patient tolerated procedure well Assessment/Plan Active Problems (Last Reviewed 03/31/18 @ 11:39 by Romeo Baeza MD) Nonhealing surgical wound (Chronic) Abdominal. With fat layer exposed. ESRD on dialysis (Chronic) Assessment: Same as above Plan: Debridement done as documented above. Procedure was well-tolerated. Tunnels noted at 6'o clock still present however improvement in depth noted. Vac holiday for now. Aquacel extra with adaptic over top. Change daily to twice daily depending on drainage. Increased protein intake recommended. Follow-up in 1 week. All their questions were answered and they were advised to call with any questions or concerns. This note was generated with [employer] software. It may contain incorrect words, spelling, and punctuation that were not noted in checking the note before signing.
== END 2018-11-15 23:59 ==
LOC: WC 09:30
PROVIDERS: Family Provider Family Medicine; PCP Family Medicine; Visit Provider Internal Medicine
DX: T81.89XA Other complications of procedures, not elsewhere classified, initial encounter (principal); N18.6 End stage renal disease; Z99.2 Dependence on renal dialysis; I50.42 Chronic combined systolic (congestive) and diastolic (congestive) heart failure; I42.9 Cardiomyopathy, unspecified; I27.21 Secondary pulmonary arterial hypertension; Z94.0 Kidney transplant status; E66.9 Obesity, unspecified; F17.200 Nicotine dependence, unspecified, uncomplicated
CPT/HCPCS: 11042; 11045; 99213; G0463

== ENCOUNTER 2018-11-23 11:00 | Outpatient (RCR) | payer MEDICARE, SELFPAY ==
[2018-11-16 01:11] VITALS: BP 159/107; PULSE 90; RESP 18; TEMP 37.1
[2018-11-16 09:01] VITALS: BP 163/116; PULSE 87; RESP 20; TEMP 35.9; BMI 29.4
--- NOTE | 2018-11-16 09:19 | PCM.WC.PN ---
(1) Nonhealing surgical wound Status: Chronic Current Visit: Yes Code(s): T81.89XA - Other complications of procedures, not elsewhere classified, initial encounter Comment: Abdominal. With fat layer exposed. (2) ESRD on dialysis Status: Chronic Current Visit: Yes Code(s): N18.6 - End stage renal disease; Z99.2 - Dependence on renal dialysis Type of Wound Date of Service: 11/16/18 Chief Complaint: Postsurgical wound management. History of Wound: Mr. Lehman is a 43-year-old whose referred to the wound center for management of his postsurgical wound. Had 4 weeks ago abdominal surgery at [facility] due to perforation from diverticulitis. Surgery was uneventful. Discharged home has been managed by wound care. Currently has a VAC applied to the abdominal wound patient states that there has been some improvement. He denies any significant/copious discharge. Denies chills, fever otherwise feeling of unwell. Progress of Wound: Vac holiday for the last week and significant improvement in the past week. No new concerns at this time. - Physical Exam Vital Signs Temp Pulse Resp BP 96.6 F L 87 20 H 163/116 H 11/16/18 09:01 11/16/18 09:01 11/16/18 09:01 11/16/18 09:01 General: Alert, Oriented x3, Cooperative, No apparent distress HEENT: Atraumatic, Normocephalic Oral: Moist Mucosa Neck: Supple Lungs: Normal air movement Extremities: No cyanosis Skin: Ulcer/ Wound Wound Measurements and Assessment WC - Nurse 1 - General Ulcer Measurement Start: 11/16/18 09:01 Freq: Status: Active Protocol: Activity Type Activity Date Activity User E-Sign Co-Sign Detail Recorded Client Recorded Date Recorded By Document 11/16/18 09:01 DL [id number] 11/16/18 09:06 DL 11/16/18 09:01 Wound Center Nurse 1 [Ulcer Assessment] #1 Abd -Current Size (cm) - Length 0.1 -Current Size (cm) - Width 0.1 -Current Size (cm) - Depth 0.1 -Total Square Cm 0.01 -Photo Taken No -Exudate Amt None Present -Wound Margin Flat & Intact -Granulation Amt Large (67-100%) -Granulation Quality [place] -Necrosis Amt Small (1-33%) -Necrotic Tissue Type Adherent Slough -Structure Exposed N/A -Texture (Mayra-wound Skin Appearance) Scarring -Moisture (Mayra-wound Skin Appearance Dry/Scaly ) -Color (Mayra-wound Skin Appearance) No Abnormality -Temperature (Mayra-wound Skin No Abnormality Appearance) (Pt Warm) -Tenderness on Palpation (Mayra-wound No Skin Appearance) -Ulcer Cleansing Rinsed/ Irrigated with Saline -Foul Odor after Cleansing No -Anesthetic Used 4% Lidocaine Solution - Nurse 2 - General Ulcer CM Notes Start: 11/16/18 09:01 Freq: Status: Active Protocol: Activity Type Activity Date Activity User E-Sign Co-Sign Detail Recorded Client Recorded Date Recorded By Document 11/16/18 09:11 MW [id number] 11/16/18 09:14 MW 11/16/18 09:11 Wound Center Nurse 2 [Procedure/Treatment] -Time 09:11 -Correct Patient Yes -Correct Side, Site, Position Yes -Correct Procedure Yes -Procedure Performed Yes -Type of Procedure Debridement -Clinical Debridement Subcutaneous -Post Debridement Size (cm) - Length 1.6 -Post Debridement Size (cm) - Width 0.4 -Post Debridement Size (cm) - Depth 0.1 -Total Square Cm 0.64 -Wound/Ulcer Outcome Not Healed -Ulcer Cleansing Rinsed/ Irrigated with Saline -Foul Odor after Cleansing No -Bioengineered Tissue No -Bleeding Controlled with Pressure -Offloading No -Treatment Response Procedure Tolerated Well [See Physician Procedure note for Specifics] Pain Scale: 0-10 Numeric [Pain] -Is Patient Pain Free? Yes Musculoskeletal: No Muscle Wasting Neurological: Cranial nerves II-XII grossly intact Psych/Mental Status: Normal Affect Debridement Note Post-Debridement Measurements/Treatment - Nurse 2 - General Ulcer CM Notes Start: 11/16/18 09:01 Freq: Status: Active Protocol: Activity Type Activity Date Activity User E-Sign Co-Sign Detail Recorded Client Recorded Date Recorded By Document 11/16/18 09:11 MW [id number] 11/16/18 09:14 MW 11/16/18 09:11 Wound Center Nurse 2 #1 Abd -Time 09:11 -Correct Patient Yes -Correct Side, Site, Position Yes -Correct Procedure Yes -Procedure Performed Yes -Type of Procedure Debridement -Clinical Debridement Subcutaneous -Post Debridement Size (cm) - Length 1.6 -Post Debridement Size (cm) - Width 0.4 -Post Debridement Size (cm) - Depth 0.1 -Total Square Cm 0.64 -Wound/Ulcer Outcome Not Healed -Ulcer Cleansing Rinsed/ Irrigated with Saline -Foul Odor after Cleansing No -Bioengineered Tissue No -Bleeding Controlled with Pressure -Offloading No -Treatment Response Procedure Tolerated Well Pain Scale: 0-10 Numeric Is Patient Pain Free? Yes Wound debrided: Midline abdominal Wound Grade/Stage: Stage III Type of Debridement: Excisional debridement Anesthesia Used: 4% Lidocaine Solution Depth: Down to and including healthy tissue, in the subcutaneous layer Percentage of wound debrided: 100 Instrument Used: 3mm curette Tissue Removed: Slough and devitalized tissue Severity: Limited To Skin Breakdown Amount of bleeding with debridement: Mild Bleeding Controlled with: Pressure Patient tolerated procedure well Assessment/Plan Active Problems (Last Reviewed 03/31/18 @ 11:39 by Romeo Baeza MD) Nonhealing surgical wound (Chronic) Abdominal. With fat layer exposed. ESRD on dialysis (Chronic) Assessment: Same as above Plan: Debridement done as documented above. Procedure was well-tolerated. Significant improvement in the past week. DC vac. Continue Aquacel extra with adaptic over top. Change daily to twice daily depending on drainage. Increased protein intake recommended. Follow-up in 1 week. All their questions were answered and they were advised to call with any questions or concerns. This note was generated with [employer] software. It may contain incorrect words, spelling, and punctuation that were not noted in checking the note before signing.
[2018-11-23 11:20] VITALS: BP 161/108; PULSE 90; RESP 18; TEMP 37; BMI 29.4
--- NOTE | 2018-11-23 12:47 | PN.PCM_ITS ---
(1) Nonhealing surgical wound Status: Chronic Current Visit: Yes Code(s): T81.89XA - Other complications of procedures, not elsewhere classified, initial encounter Comment: Abdominal. With fat layer exposed. (2) ESRD on dialysis Status: Chronic Current Visit: Yes Code(s): N18.6 - End stage renal disease; Z99.2 - Dependence on renal dialysis Type of Wound Date of Service: 11/23/18 Chief Complaint: Postsurgical wound management. History of Wound: Mr. Lehman is a 43-year-old whose referred to the wound center for management of his postsurgical wound. Had 4 weeks ago abdominal surgery at [facility] due to perforation from diverticulitis. Surgery was uneventful. Discharged home has been managed by wound care. Currently has a VAC applied to the abdominal wound patient states that there has been some improvement. He denies any significant/copious discharge. Denies chills, fever otherwise feeling of unwell. Progress of Wound: Healed. No new concerns at this time. - Physical Exam Vital Signs Temp Pulse Resp BP 98.6 F 90 18 161/108 H 11/23/18 11:20 11/23/18 11:20 11/23/18 11:20 11/23/18 11:20 General: Alert, Oriented x3, Cooperative, No apparent distress HEENT: Atraumatic, Normocephalic Oral: Moist Mucosa Neck: Supple Lungs: Normal air movement Abdomen: Non Tender Extremities: No cyanosis Wound Measurements and Assessment - Nurse 1 - General Ulcer Measurement Start: 11/16/18 09:01 Freq: Status: Active Protocol: Activity Type Activity Date Activity User E-Sign Co-Sign Detail Recorded Client Recorded Date Recorded By Document 11/23/18 11:20 ND [id number] 11/23/18 11:23 ND 11/23/18 11:20 Wound Center Nurse 1 [Ulcer Assessment] #1 Abd -Current Size (cm) - Length 0.1 -Current Size (cm) - Width 0.1 -Current Size (cm) - Depth 0.1 -Total Square Cm 0.01 [Edema Assessment] -Lower Limb Edema Present NA - Nurse 2 - General Ulcer CM Notes Start: 11/16/18 09:01 Freq: Status: Active Protocol: Activity Type Activity Date Activity User E-Sign Co-Sign Detail Recorded Client Recorded Date Recorded By Document 11/23/18 11:59 MW [id number] 11/23/18 12:00 MW 11/23/18 11:59 Wound Center Nurse 2 [Procedure/Treatment] #1 Abd -Time 11:59 -Correct Patient Yes -Correct Side, Site, Position Yes -Correct Procedure Yes -Procedure Performed No -Post Debridement Size (cm) - Length 0 -Post Debridement Size (cm) - Width 0 -Post Debridement Size (cm) - Depth 0 -Total Square Cm 0 -Wound/Ulcer Outcome Healed- Epithelialized [See Physician Procedure note for Specifics] Pain Scale: 0-10 Numeric [Pain] -Is Patient Pain Free? Yes Musculoskeletal: No Muscle Wasting Neurological: Cranial nerves II-XII grossly intact Psych/Mental Status: Normal Affect Debridement Note Post-Debridement Measurements/Treatment WC - Nurse 2 - General Ulcer CM Notes Start: 11/16/18 09:01 Freq: Status: Active Protocol: Activity Type Activity Date Activity User E-Sign Co-Sign Detail Recorded Client Recorded Date Recorded By Document 11/16/18 09:11 MW [id number] 11/16/18 09:14 MW Document 11/23/18 11:59 MW [id number] 11/23/18 12:00 MW 11/16/18 11/23/18 09:11 11:59 Wound Center Nurse 2 #1 Abd -Time 09:11 11:59 -Correct Patient Yes Yes -Correct Side, Site, Position Yes Yes -Correct Procedure Yes Yes -Procedure Performed Yes No -Type of Procedure Debridement -Clinical Debridement Subcutaneous -Post Debridement Size (cm) - Length 1.6 0 -Post Debridement Size (cm) - Width 0.4 0 -Post Debridement Size (cm) - Depth 0.1 0 -Total Square Cm 0.64 0 -Wound/Ulcer Outcome Not Healed Healed- Epithelialized -Ulcer Cleansing Rinsed/ Irrigated with Saline -Foul Odor after Cleansing No -Bioengineered Tissue No -Bleeding Controlled with Pressure -Offloading No -Treatment Response Procedure Tolerated Well Pain Scale: 0-10 Numeric Is Patient Pain Free? Yes Yes No debridement was completed today Assessment/Plan Active Problems (Last Reviewed 03/31/18 @ 11:39 by Romeo Baeza MD) Nonhealing surgical wound (Chronic) Abdominal. With fat layer exposed. ESRD on dialysis (Chronic) Assessment: Same as above Plan: Healed. No new concerns at this time. Adaptic over top x 2 weeks. His questions were answered and they were advised to call with any questions or concerns. Discharged from the wound clinic. This note was generated with [employer] dictation software. It may contain incorrect words, spelling, and punctuation that were not noted in checking the note before signing.
== END 2018-12-16 23:59 ==
LOC: WC 11:00
PROVIDERS: Family Provider Family Medicine; PCP Family Medicine; Visit Provider Internal Medicine
DX: T81.89XA Other complications of procedures, not elsewhere classified, initial encounter (principal); Y83.8 Other surgical procedures as the cause of abnormal reaction of the patient, or of later complication, without mention of misadventure at the time of the procedure; N18.6 End stage renal disease; Z99.2 Dependence on renal dialysis
CPT/HCPCS: 11042; 99213; G0463

== ENCOUNTER → 2019-12-18 08:59 | Outpatient (CLI) | payer MEDICARE, MEDICAID, SELFPAY ==
[2019-05-14 08:42] VITALS: BMI 30.2
--- NOTE | 2019-12-18 09:03 | VDUE_ITS ---
Reason For Study: End stage renal disease Right Arm Left Arm Right Cephalic Vein at the wrist measures Clotted Radiocephalic fistula noted from the 0.31 x 0.33 cm. wrist to mid forearm. Right Cephalic Vein in the forearm measures Left Cephalic Vein below antecub measures 0.31 x 0.33 cm. 0.27 x 0.28 cm. Right Cephalic Vein below antecub measures Left Cephalic Vein above antecub measures 0.25 x 0.28 cm. 0.56 x 0.56 cm. Right Cephalic Vein above antecub measures Left Cephalic Vein at mid bicep measures 0.51 0.07 x 0.07 cm. x 0.51 cm. Right Cephalic Vein mid bicep measures 0.13 Left Cephalic Vein at the shoulder measures x 0.13 cm. 0.39 x 0.39 cm. Right Cephalic Vein at the shoulder measures Basilic vein at origin measures 0.69 x 0.71 0.18 x 0.19 cm. cm. Right Basilic Vein at the origin measures Basilic vein at bicep measures 0.73 x 0.76 0.60 x 0.62 cm. cm. Right Basilic Vein mid bicep measures 0.63 x Basilic vein above antecub measures 0.73 x 0.68 cm. 0.77 cm. Right Basilic Vein above antecub measures Left Brachial artery 1 measures 0.60 x 0.58 0.72 x 0.74 cm. cm with a velocity of 44.6 cm/sec. Right Brachial artery measures 0.48 x 0.50 Left Brachial artery 2 measures 0.39 x 0.41 cm with a velocity of 49.4 cm/sec. cm with a velocity of 38 cm/sec. Right Radial artery measures 0.22 x 0.24 cm Left Radial artery (previous fistula) with a velocity of 68.2 cm/sec. measures 0.57 x 0.61 cm with a velocity of 22.7 cm/sec. Interpretation Summary Patent and compressible bilateral upper extremity cephalic and basilic veins with dimensions as noted. 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
== END ==
PROVIDERS: PCP Family Medicine; Referring Provider Internal Medicine Nephrology; Visit Provider Internal Medicine Nephrology
DX: Z01.818 Encounter for other preprocedural examination (principal); N18.6 End stage renal disease
CPT/HCPCS: 93970; 93985

== ENCOUNTER 2020-03-02 08:49 | Inpatient (IN) | payer MEDICARE, MEDICAID, SELFPAY ==
[2019-05-14 08:42] VITALS: BMI 30.2
[2020-03-02] VITALS (12 sets, daily range): BP systolic 118–163; BP diastolic 78–106; PULSE 80–119; RESP 16–31; TEMP 36.3–36.8; O2SAT 96–100; BMI 35.0; BMI 31.9
--- NOTE | 2020-03-02 09:06 | EKG12_ITS ---
Test Reason : SOB Blood Pressure : / mmHG Vent. Rate : 093 BPM Atrial Rate : 093 BPM P-R Int : 170 ms QRS Dur : 132 ms QT Int : 388 ms P-R-T Axes : 004 -09 -73 degrees QTc Int : 482 ms Normal sinus rhythm Non-specific intra-ventricular conduction block T wave abnormality, consider inferolateral ischemia Abnormal ECG Confirmed by VANDANA BAILEY, MEÑO ([id number]), editor dictionary KENTON PETERSEN ([id number]) on 03/04/2020 12:54:24 PM Referred By: CARMEN Confirmed By:MEÑO ROSS MD
--- NOTE | 2020-03-02 09:08 | ED.DCSUM_ITS ---
History of Present Illness Informant: Patient Narrative: 44-year-old male with past medical history of hypertension, CHF, status post renal transplant in 2009 which failed in 2017, on hemodialysis MWF presents with fatigue, weight gain, and shortness of breath. He did not miss any dialysis sessions this week. Last night he started to feel fatigued and short of breath. He had orthopnea and had to sleep sitting up. He also has dyspnea on exertion. He states he has gained 6 pounds over the last week and has lower extremity swelling up to both knees. Denies chest pain, cough, fever, chills, nausea, vomiting, abdominal pain, diarrhea, or urinary symptoms. He has minimal urine output. <Helen Celis - Last Filed: 03/02/20 10:56> <Nawaf Waddell - Last Filed: 03/02/20 11:03> Chief Complaint: Shortness of Breath Past Medical History Past Medical History: - - HTN, CHF. renal transplant, ESRD on HD Surgical History: - - History of renal transplant, surgery for ureteral rupture, AVF. Smoking Status: Current some day smoker - Family History Maternal Family History: Family History (Last Updated 05/14/19 @ 09:07 by Antonio Hilton NP, [facility] [facility]) Father Cancer Hypertension Mother Epilepsy Family History: Reports: Seizures Paternal Family History: Family History (Last Updated 05/14/19 @ 09:07 by Antonio Hilton NP, [facility] [facility]) Father Cancer Hypertension Mother Epilepsy Family History: Reports: Cancer - Father of stomach cancer <Helen Celis - Last Filed: 03/02/20 10:56> - Family History Maternal Family History: Family History (Last Updated 05/14/19 @ 09:07 by Antonio Hilton NP, [facility] [facility]) Father Cancer Hypertension Mother Epilepsy Paternal Family History: Family History (Last Updated 05/14/19 @ 09:07 by Antonio Hilton NP, [facility] [facility]) Father Cancer Hypertension Mother Epilepsy <Nawaf Waddell - Last Filed: 03/02/20 11:03> - Allergies and Home Meds Allergies/Adverse Reactions: Allergies Qvibmig-Aol-Stb Reductase Inhibitor Allergy (Verified 03/02/20 08:49) Other Review of Systems General: Reports: Malaise. Denies: Chills, Fever, Sweats Eyes: Denies: Visual changes - bilaterally, Diplopia ENT: Denies: Rhinorrhea, Sore throat Cardiovascular: Denies: Chest pain, Palpitations Respiratory: Reports: Dyspnea, Dyspnea on exertion, Orthopnea. Denies: Cough, Sputum, Paroxysmal nocturnal dyspnea Gastrointestinal: Denies: Abdominal pain, Nausea, Vomiting, Diarrhea, Melena, Hematochezia Genitourinary: Denies: Dysuria, Hematuria, Frequency Musculoskeletal: Denies: Back pain, Extremity Pain Skin: Denies: Rash, Wounds Neurological: Denies: Headache, Weakness, Parasthesia, Numbness <Helen Celis - Last Filed: 03/02/20 10:56> Physical Exam Vital Signs/Narrative: Vital Signs Temp Pulse Resp BP Pulse Ox 03/02/20 08:49 97.6 F L 99 16 163/78 H 100 General: Well nourished, Well developed, No Acute Distress Head: Normocephalic, Atraumatic Eyes: Perrl, EOMI ENT: Moist mucous membranes, No rhinorrhea Neck: Supple, Nontender Cardiovascular: Regular rate, Regular rhythm, No murmurs Respiratory: No distress, CTA bilaterally, Chest nontender Abdomen: Soft, Nontender, Nondistended, Normal bowel sounds, - - large ventral hernia, reducible Back: Nontender, Normal Inspection Extremities: Nontender, - - minor edema in LE up to knees, non-pitting Skin: Normal color, No rash Neurological: Alert, Oriented x3, Cranial nerves II-XII grossly intact Psychological: Normal affect, Normal Mood <Helen Celis - Last Filed: 03/02/20 10:56> Vital Signs/Narrative: Vital Signs Temp Pulse Resp BP Pulse Ox 03/02/20 10:35 92 31 H 100 03/02/20 09:30 93 24 H 118/101 H 100 03/02/20 08:49 97.6 F L 99 16 163/78 H 100 <Nawaf Waddell - Last Filed: 03/02/20 11:03> Diagnostic/Tx/Re-eval Clinical Impression(s) from Imaging Studies Chest X-Ray 03/02/20 09:30 IMPRESSION: Moderate volume overload. Electronically Signed: Alex Silverio MD at 10:34 EST Tel , Service support , Laboratory Data 03/02/20 03/02/20 03/02/20 09:20 09:20 09:20 WBC 11.4 H RBC 3.35 L Hgb 11.2 L Hct 36.7 L MCV 109.6 H MCH 33.4 H MCHC 30.5 L RDW Std Deviation 58.2 H RDW Coeff of Rosa Maria 14.6 Plt Count 189 MPV 10.2 Immature Gran % (Auto) 0.500 Neut % (Auto) 86.9 H Lymph % (Auto) 5.9 L Clark % (Auto) 5.3 Eos % (Auto) 1.0 Baso % (Auto) 0.4 Absolute Neuts (auto) 9.9 H Absolute Lymphs (auto) 0.67 L Nucleated RBC % 0 D-Dimer Quant (PE/DVT) Sodium 137 Potassium 8.1 H* Chloride 102 Carbon Dioxide 28.0 Anion Gap 7 BUN 81 H Creatinine 10.50 H* Estim Creat Clear Calc 8.48 Est GFR (MDRD) Af Amer 7 L Est GFR (MDRD) Non-Af 6 L BUN/Creatinine Ratio 7.7 L Glucose 151 H Calcium 8.3 L Troponin I 0.124 H B-Natriuretic Peptide 2527.9 H 03/02/20 09:20 WBC RBC Hgb Hct MCV MCH MCHC RDW Std Deviation RDW Coeff of Rosa Maria Plt Count MPV Immature Gran % (Auto) Neut % (Auto) Lymph % (Auto) Clark % (Auto) Eos % (Auto) Baso % (Auto) Absolute Neuts (auto) Absolute Lymphs (auto) Nucleated RBC % D-Dimer Quant (PE/DVT) 1.00 H* Sodium Potassium Chloride Carbon Dioxide Anion Gap BUN Creatinine Estim Creat Clear Calc Est GFR (MDRD) Af Amer Est GFR (MDRD) Non-Af BUN/Creatinine Ratio Glucose Calcium Troponin I B-Natriuretic Peptide - Rhythm Strip Rhythm Strip: Sinus Rhythm Rate: 93 - Medical Decision Making 44-year-old male on hemodialysis presents with orthopnea, dyspnea on exertion, and fatigue that started last night. He appears well nontoxic. Vital signs within normal limits. 100% on room air. He does have conversational dyspnea and was placed on 2 L O2 for comfort. Heart is regular rate and rhythm with no murmurs. Lungs are clear to auscultation. Abdomen has chronic ventral hernia but is soft and nontender. Lower extremities have mild swelling. Labs show potassium of 8.1 and creatinine of 10.5 which is up from his baseline of 7?8. BNP is 2500. EKG shows normal sinus rhythm and no hyperkalemic changes. Troponin is elevated but he has no chest pain or respiratory symptoms and I think this is secondary to renal failure. He has had elevated troponins in the past. Chext-xray interpreted by ED attending shows increased fluid overload from previous and radiology read agrees. D-dimer was initially obtained due to shortness of breath and is elevated but I have no concern for PE and do not think he needs a CTA at this time as the etiology of his shortness of breath is likely secondary to renal failure and fluid overload. Hyperkalemia was treated with calcium gluconate, albuterol, insulin/dextrose, and Kayexalate. He will need admitted for dialysis. Case discussed with hospitalist and he was transferred to the floor in stable condition. Impression 1. Acute on chronic renal failure on HD 2. Hyperkalemia 3. Dyspnea 4. CHF exacerbation 5. Bilateral lower extremity edema <Helen Celis - Last Filed: 03/02/20 10:56> - Medical Decision Making Patient presents with shortness of breath. He feels like he needs dialyzed. He has been dialyzed normally throughout the week. His weight is up about 10 pounds from his dry weight. Labs show potassium of 8.1. Patient discussed with hospitalist for admission for dialysis <Nawaf Waddell - Last Filed: 03/02/20 11:03> ED Disposition <Helen Celis - Last Filed: 03/02/20 10:56> <Nawaf Waddell - Last Filed: 03/02/20 11:03> - Plan for ED Patient: Disposition: Acute Care Hospital [facility] Diagnosis: Acute on chronic renal failure, Hyperkalemia, Dyspnea
--- NOTE | 2020-03-02 09:30 | RAD_ITS ---
STUDY: X-RAY CHEST REASON FOR EXAM: Male, 44 years old. sob, fluid retention, chronic dialysis patient TECHNIQUE: Single AP portable view of the chest. COMPARISON: 03/12/2018 FINDINGS: Interval placement of tunneled right internal jugular dialysis catheter with tip of the catheter overlying the junction of the right atrium and screw vena cava with no pneumothorax. Reticular interstitial opacities throughout the lungs consistent with interstitial edema. There is no demonstrated pleural abnormality. There is moderate cardiac enlargement. Normal mediastinum and roberto. There is prominence of the pulmonary hilar arteries and peripheral pulmonary arteries, consistent with congestive heart failure (CHF). Normal visualized aortic arch and descending thoracic aorta. Normal visualized thoracic spine. Normal visualized ribs, clavicles, and shoulders. There is no demonstrated abnormality of the visualized soft tissue structures of the upper abdomen. RAD/Chest 1 View (Portable) IMPRESSION: Moderate volume overload. Electronically Signed: Alex Silverio MD at 10:34 EST Tel , Service support ,
[2020-03-02 09:32] LABS: Absolute Lymphocyte Count 0.67 X10^3/uL (0.83-4.51); Absolute Neutrophil Count 9.9 X10^3/uL (2.0-7.7); Basophil# 0.05 X10^3/uL; Basophil% 0.4 % (0-1); Eosinophil# 0.11 X10^3/uL; Hematocrit 36.7 % (40-54); Hemoglobin 11.2 g/dL (13.0-16.5); Lymphocyte # 0.67 X10^3/ul (4.0); Lymphocyte % 5.9 % (19-41); Mean Corp Hgb Conc 30.5 g/dL (32-36); Mean Corpuscular Hgb 33.4 pg (27.0-32.0); Mean Corpuscular Volume 109.6 fL (80-94); Mean Platelet Vol. 10.2 fl (6.2-12.0); Monocyte% 5.3 % (0-10); NRBC Flagged by Analyzer 0 % (0-5); Neutrophil # 9.86 X10^3/uL (2.7-7.7); Neutrophil % 86.9 % (47-70); Platelet Count 189 K/mm3 (150-450); RBC Distribution Width CV 14.6 % (11.6-14.6); RBC Distribution Width SD 58.2 fl (35.1-43.9); Red Blood Count 3.35 M/mm3 (4.6-6.2); White Blood Count 11.4 K/mm3 (4.4-11.0)
[2020-03-02 09:52] LABS: Anion Gap 7 (5-15); BUN 81 mg/dL (7-18); BUN/Creat Ratio 7.7 RATIO (10-20); Calcium,Total 8.3 mg/dL (8.5-10.1); Chloride 102 mmol/L (98-107); EST Glomerular Filtration Rate 6 mL/min (>60); Est Glom Filt Rate - Afr Amer 7 mL/min (>60); Estimated Creatinine Clearance 8.48 ml/min; Glucose 151 mg/dL (74-106); Potassium 8.1 mmol/L (3.5-5.1); Sodium Level 137 mmol/L (136-145)
[2020-03-02 10:00] LABS: BNP,B-Type NATRIURETIC PEPTIDE 2527.9 pg/mL (0-100)
[2020-03-02] MEDS: Albuterol 2.5 MG/3 ML VIAL.NEB. INHALATION (10:30)
[2020-03-02] MEDS: Insulin Lispro 5 UNIT in Syringe 0 ML 3 UNIT IV (10:32)
[2020-03-02] MEDS: Sodium Polystyrene Sulfonate 15 GM/60 ML UDC 30 GM PO (10:32)
[2020-03-02] MEDS: Dextrose 50%-Water 25 GM/50 ML DISP.SYRIN IV (10:32)
--- NOTE | 2020-03-02 11:23 | ED.RN ---
PATIENT VOICES DESIRE TO GO HOME, STATES I FEEL 100% BETTER AFTER GETTING THAT MEDICINE. REPORTS THAT HE ARRANGED TO HAVE HIS DIALYSIS SESSION MOVED TO TOMORROW MORNING AT 0600. DR. HARRISON TO BEDSIDE TO SPEAK WITH PATIENT.
--- NOTE | 2020-03-02 16:09 | PCM.HP.STD ---
History of Present Illness Date of Admission: 03/02/20 Chief Complaint: Fatigue and shortness of breath The patient is a 44 year old M with a PMH as below who presents to the hospital with fatigue, weight gain, and shortness of breath. He states he did not miss any dialysis sessions this week however last night he started to feel tired and short of breath. He did have some orthopnea and had to sleep sitting upright. He also had some dyspnea on exertion. When he did present to the ER he was 100% on room air however he was dyspneic and they placed him on 2 L for comfort. He states that he has had a 6 pound weight gain over the last week and states that his legs are more swollen than usual. He denies any fevers or chills, and denies any cough. In the ER he was found to have a potassium of 8.1 with a normal EKG. He was given calcium gluconate, glucose and insulin, albuterol, and Kayexalate. He felt funny and he knew that his potassium was elevated but is not sure why. He does not think he ate a lot of potassium heavy foods. Also his creatinine was 10.5 and his baseline is usually around 7, troponin was little bit elevated which is consistent with renal failure, and his BNP was elevated to 2500 which is also somewhat consistent with renal failure. Chest x-ray was read as moderate volume overload. Past Medical History Past Medical History (Chronic Problems): Chronic Problems (Last Reviewed 03/31/18 @ 11:[address] Romeo Baeza MD) Acute on chronic renal failure (Chronic) Hypertension (Chronic) Nonhealing surgical wound (Chronic) Abdominal. With fat layer exposed. CHF (congestive heart failure) (Chronic) Nicotine dependence (Chronic) Non-rheumatic tricuspid valve insufficiency (Chronic) Secondary pulmonary arterial hypertension (Chronic) Cardiomyopathy in diseases classified elsewhere (Chronic) Acute combined systolic (congestive) and diastolic (congestive) heart failure (Chronic) ESRD on dialysis (Chronic) Renal transplant recipient (Chronic) Obesity (Chronic) Medical History: Medical History (Last Reviewed 03/31/18 @ 11:[address] Romeo Baeza MD) Demand ischemia of myocardium (Resolved) Onset Date: 03/13/18 I24.8 Nicotine dependence (Chronic) F17.200 Non-rheumatic tricuspid valve insufficiency (Chronic) I36.1 Secondary pulmonary arterial hypertension (Chronic) I27.21 Cardiomyopathy in diseases classified elsewhere (Chronic) I43 Acute combined systolic (congestive) and diastolic (congestive) heart failure (Chronic) I50.41 ESRD on dialysis (Chronic) N18.6, Z99.2 Obesity (Chronic) E66.9 Allergies Cohenex-Rur-Hgm Reductase Inhibitor Allergy (Verified 03/02/20 08:49) Other Home Medications: Ambulatory Orders Medication Instructions Recorded Carvedilol 25 mg PO BID 03/12/18 Sensipar 90 mg PO DAILY 03/02/20 Surgical History: Surgical History (Last Reviewed 03/31/18 @ 11:[address] Romeo Baeza MD) Renal transplant recipient (Chronic) Z94.0 Surgical History: - - History of renal transplant, surgery for ureteral rupture, AVF. Psychiatric History: No pertinent psych hx Smoking Status: Former smoker Tobacco Use: Cigarettes Alcohol: None Drugs: None - *Family History Maternal Family History: Family History (Last Updated 05/14/19 @ 09:07 by Antonio Hilton DOUBLE HEAD MACHINE OPERATOR, DOUBLE HEAD MACHINE OPERATOR-C) Father Cancer Hypertension Mother Epilepsy History Items: Seizures Paternal Family History: Family History (Last Updated 05/14/19 @ 09:07 by Antonio Hilton NP, DOUBLE HEAD MACHINE OPERATOR-C) Father Cancer Hypertension Mother Epilepsy History Items: Cancer - Father of stomach cancer Review of Systems Constitutional: Reports: Fatigue. Denies: Chills, Fever, Weight Change HEENT: Denies: Head Aches, Sinus Congestion, Sinus Drainage Cardiovascular: Reports: Edema. Denies: Chest Pain, Palpitations Respiratory: Reports: Shortness of Breath, Shortness of breath upon exertion. Denies: Cough, Shortness of breath at rest, Sputum production Gastrointestinal: Denies: Abdominal Pain, Nausea, Vomiting Genitourinary: Denies: Dysuria Musculoskeletal: Denies: Joint Pain, Joint Tenderness Skin: Denies: Rash, Wounds Neurological: Denies: Numbness, Tingling, Focal weakness Psychiatric: Denies: Anxiety, Depression Hematologic/ Lymphatic: Denies: Easy Bruising, Easy Bleeding VTE Information - Inpt Only VTE Present on Admission: No Patient Problems: Active and Suspected Problems (Last Reviewed 03/31/18 @ 11:[address] Romeo Baeza MD) Hyperkalemia (Acute) Dyspnea (Acute) - Physical Exam Vitals/I&O's: Vital Signs Temp Pulse Resp BP Pulse Ox 97.7 F L 102 H 18 131/103 H 96 03/02/20 12:00 03/02/20 15:00 03/02/20 12:00 03/02/20 12:00 03/02/20 12:00 Oxygen Flow Rate (L/min) 2 Oxygen Delivery Method Room Air Weight: 222 lb 10.67 oz Body Mass Index (BMI) 31.9 Intake and Output for Last 24 Hours 02/29/20 03/01/20 03/02/20 23:59 23:59 23:59 Intake Total 110.05 / 110.05 Balance 110.05 / 110.05 General: Alert, Oriented x3, Cooperative, No apparent distress HEENT: Atraumatic, PERRLA, EOMI, Normocephalic Oral: Moist Mucosa Neck: Supple, No JVD Lungs: Clear to auscultation, Normal air movement, No rhonchi, No wheeze, No rales, Diminished Cardiovascular: Regular rate, Regular Rhythm, Normal S1, Normal S2, No murmurs Abdomen: Soft, Non Tender, Non-Distended, No Hepato-splenomegaly Extremities: Capillary Refill Less than 3 Seconds, Edema - 1+ pitting edema bilateral ankles Skin: No rashes, No breakdown Neurological: Neuro grossly intact, Sensory exam intact to light touch and pain Psych/Mental Status: Normal Affect, Appropriate Laboratory Results 03/02/20 09:20: WBC 11.4 H, RBC 3.35 L, Hgb 11.2 L, Hct 36.7 L, MCV 109.6 H, MCH 33.4 H, MCHC 30.5 L, RDW Std Deviation 58.2 H, RDW Coeff of Rosa Maria 14.6, Plt Count 189, MPV 10.2, Immature Gran % (Auto) 0.500, Neut % (Auto) 86.9 H, Lymph % (Auto) 5.9 L, [place] % (Auto) 5.3, Eos % (Auto) 1.0, Baso % (Auto) 0.4, Absolute Neuts (auto) 9.9 H, Absolute Lymphs (auto) 0.67 L, Nucleated RBC % 0 03/02/20 09:20: Sodium 137, Potassium 8.1 H*, Chloride 102, Carbon Dioxide 28.0, Anion Gap 7, BUN 81 H, Creatinine 10.50 H*, Estim Creat Clear Calc 8.48, Est GFR (MDRD) Af Amer 7 L, Est GFR (MDRD) Non-Af 6 L, BUN/Creatinine Ratio 7.7 L, Glucose 151 H, Calcium 8.3 L, Troponin I 0.124 H 03/02/20 09:20: B-Natriuretic Peptide 2527.9 H 03/02/20 09:20: D-Dimer Quant (PE/DVT) 1.00 H* Current Medications Heparin Sodium (Porcine) (Heparin 10,000 Units/10 Ml Vial) 4,200 units IV DAILY PRN PRN PRN Reason: DIALYSIS Sodium Chloride () 500 mls @ 15 mls/hr IV PRN PRN PRN Reason: Blood Transfusion Sodium Chloride () 250 mls @ 15 mls/hr IV .[id number] PRN PRN Reason: Saline Flush Sodium Chloride () 250 mls @ 15 mls/hr IV .[id number] PRN PRN Reason: Additional IVPB Infusion Sodium Chloride (0.9% Saline Lock 10 Ml Syringe) 10 - 40 ml IV UD PRN PRN Reason: SALINE FLUSH Assessment/Plan All Active Problems (Last Reviewed 03/31/18 @ 11:[address] Romeo Baeza MD) Hyperkalemia (Acute) Dyspnea (Acute) Diverticulitis (Acute) Elevated bilirubin (Acute) Demand ischemia of myocardium (Resolved 03/13/18) 1. Acute on chronic renal failure with hyperkalemia/history of renal transplant secondary to hypertensive nephropathy/elevated troponin -His renal transplant was rejected in 2017 -We will consult nephrology for dialysis -We will continue with his beta-nereida -We will monitor his potassium, he was given temporizing measures in the ER prior to admission -His troponin elevation is secondary to his chronic renal failure DVT: Ambulation Inpatient E&M: 44400 Init Hosp L2
--- NOTE | 2020-03-02 17:08 | DIALYSIS ---
HD x3 hours completed at 1645 on a 1K bath x1hr then a 2K bath x2hrs, tolerated well, UF 1500mL, LLE cramping last hr of tx, goal decreased from 2.5L, accessed via right chest tunneled dialysis catheter, worked well with lines reversed, no pull arterial port, next tx per nephrology
--- NOTE | 2020-03-02 19:46 | PCM.CONS.R ---
Consultation - Renal 03/02/20 PCP/ Referring MD: Requesting physician: Dr. Boyle Primary care physician: Dr. Mahendra Sampson MD Reason for Consultation:: ESRD, hyperkalemia - History of Present Illness History of Present Illness: The patient is a 44 year old M with history of ESRD presents today with weakness and SOB. He was found to have K of 8.1. Pt usually dialyzes on MWF schedule at [facility]. He denies missing dialysis treatment this week. The pt admits that he had been eating quite a bit of chili this weekend which is tomato based. He feels better after urgent HD earlier today. We did UF him along with dialysis. He denies current SOB. There is no CP, nausea or edema. - Allergies Allergies: Allergies Jmvfbte-Gfi-Yje Reductase Inhibitor Allergy (Verified 03/02/20 08:49) Other - Current Medications Current Medications: Current Medications Carvedilol (Carvedilol 25 Mg Tablet) 25 mg PO BID HOANG Cinacalcet (Cinacalcet Hcl 30 Mg Tablet) 90 mg PO MoWeFr@1000 HOANG Heparin Sodium (Porcine) (Heparin 10,000 Units/10 Ml Vial) 4,200 units IV DAILY PRN PRN PRN Reason: DIALYSIS Sodium Chloride () 500 mls @ 15 mls/hr IV PRN PRN PRN Reason: Blood Transfusion Sodium Chloride () 250 mls @ 15 mls/hr IV .[id number] PRN PRN Reason: Saline Flush Sodium Chloride () 250 mls @ 15 mls/hr IV .[id number] PRN PRN Reason: Additional IVPB Infusion Sodium Chloride (0.9% Saline Lock 10 Ml Syringe) 10 - 40 ml IV UD PRN PRN Reason: SALINE FLUSH - Past Medical History Past Medical History (Chronic Problems): Chronic Problems (Last Reviewed 03/31/18 @ 11:[address] Romeo Baeza MD) Acute on chronic renal failure (Chronic) Hypertension (Chronic) Nonhealing surgical wound (Chronic) Abdominal. With fat layer exposed. CHF (congestive heart failure) (Chronic) Nicotine dependence (Chronic) Non-rheumatic tricuspid valve insufficiency (Chronic) Secondary pulmonary arterial hypertension (Chronic) Cardiomyopathy in diseases classified elsewhere (Chronic) Acute combined systolic (congestive) and diastolic (congestive) heart failure (Chronic) ESRD on dialysis (Chronic) Renal transplant recipient (Chronic) Obesity (Chronic) - Past Surgical History Surgical History: - - History of renal transplant, surgery for ureteral rupture, AVF. - Social History Smoking Status: Former smoker Alcohol: None Drugs: None - Family History Maternal Family History: Family History (Last Updated 05/14/19 @ 09:07 by Antonio Hilton NP, MOLDER-C) Father Cancer Hypertension Mother Epilepsy History Items: Seizures Paternal Family History: Family History (Last Updated 05/14/19 @ 09:07 by Antonio Hilton NP, MOLDER-C) Father Cancer Hypertension Mother Epilepsy History Items: Cancer - Father of stomach cancer Review of Systems Constitutional: Reports: Malaise, Weakness. Denies: Anorexia, Chills, Fever, Night Sweats Eyes: Denies: Blurred vision, Double vision, Pain, Redness, Vision Change HEENT: Denies: Head Aches, Sinus Congestion, Sinus Drainage Cardiovascular: Denies: Chest Pain, Edema, Palpitations Respiratory: Denies: Cough, Hemoptysis, Shortness of breath at rest, Sputum production Gastrointestinal: Denies: Abdominal Pain, Nausea, Vomiting Genitourinary: Denies: Dysuria Musculoskeletal: Denies: Joint Pain, Joint Tenderness Skin: Denies: Rash, Wounds Neurological: Denies: Numbness, Tingling, Focal weakness Psychiatric: Denies: Anxiety, Depression, Homicidal Ideations, Suicidal Ideations Hematologic/ Lymphatic: Denies: Easy Bruising, Easy Bleeding Patient Problems: Active and Suspected Problems (Last Reviewed 03/31/18 @ 11:[address] Romeo Baeza MD) Hyperkalemia (Acute) Dyspnea (Acute) - Physical Exam Vitals/I&O's: Vital Signs Temp Pulse Resp BP Pulse Ox 97.9 F 91 20 H 125/102 H 100 03/02/20 17:02 03/02/20 18:52 03/02/20 17:02 03/02/20 17:02 03/02/20 17:02 Oxygen Flow Rate (L/min) 3 Oxygen Delivery Method Nasal Cannula Weight: 101 kg Body Mass Index (BMI) 31.9 Intake and Output for Last 24 Hours 02/29/20 03/01/20 03/02/20 23:59 23:59 23:59 Intake Total 350.05 / 350.05 Output Total 1500 / 1500 Balance -1149.95 / -1149.95 General: Alert, Oriented x3, Cooperative HEENT: Atraumatic, PERRLA, EOMI, Normocephalic Oral: Moist Mucosa Neck: Supple, No JVD Lungs: Clear to auscultation Cardiovascular: Normal S1, Normal S2, No murmurs Abdomen: Bowel Sounds Present, Soft, Non Tender, Non-Distended Extremities: No clubbing, No cyanosis, No edema Skin: No rashes Musculoskeletal: No Tenderness to Palpation of Joints or Extremities Lymphatic: No Cervical, Supraclavicular, or Inguinal Adenopathy Neurological: Cranial nerves II-XII grossly intact Psych/Mental Status: Normal Affect Laboratory Results 03/02/20 09:20: WBC 11.4 H, RBC 3.35 L, Hgb 11.2 L, Hct 36.7 L, MCV 109.6 H, MCH 33.4 H, MCHC 30.5 L, RDW Std Deviation 58.2 H, RDW Coeff of Rosa Maria 14.6, Plt Count 189, MPV 10.2, Immature Gran % (Auto) 0.500, Neut % (Auto) 86.9 H, Lymph % (Auto) 5.9 L, [place] % (Auto) 5.3, Eos % (Auto) 1.0, Baso % (Auto) 0.4, Absolute Neuts (auto) 9.9 H, Absolute Lymphs (auto) 0.67 L, Nucleated RBC % 0 03/02/20 09:20: Sodium 137, Potassium 8.1 H*, Chloride 102, Carbon Dioxide 28.0, Anion Gap 7, BUN 81 H, Creatinine 10.50 H*, Estim Creat Clear Calc 8.48, Est GFR (MDRD) Af Amer 7 L, Est GFR (MDRD) Non-Af 6 L, BUN/Creatinine Ratio 7.7 L, Glucose 151 H, Calcium 8.3 L, Troponin I 0.124 H 03/02/20 09:20: B-Natriuretic Peptide 2527.9 H 03/02/20 09:20: D-Dimer Quant (PE/DVT) 1.00 H* Current Medications Carvedilol (Carvedilol 25 Mg Tablet) 25 mg PO BID HOANG Cinacalcet (Cinacalcet Hcl 30 Mg Tablet) 90 mg PO MoWeFr@1000 HOANG Heparin Sodium (Porcine) (Heparin 10,000 Units/10 Ml Vial) 4,200 units IV DAILY PRN PRN PRN Reason: DIALYSIS Sodium Chloride () 500 mls @ 15 mls/hr IV PRN PRN PRN Reason: Blood Transfusion Sodium Chloride () 250 mls @ 15 mls/hr IV .[id number] PRN PRN Reason: Saline Flush Sodium Chloride () 250 mls @ 15 mls/hr IV .[id number] PRN PRN Reason: Additional IVPB Infusion Sodium Chloride (0.9% Saline Lock 10 Ml Syringe) 10 - 40 ml IV UD PRN PRN Reason: SALINE FLUSH Assessment/Plan All Active Problems (Last Reviewed 03/31/18 @ 11:[address] Romeo Baeza MD) Hyperkalemia (Acute) Dyspnea (Acute) Diverticulitis (Acute) Elevated bilirubin (Acute) Demand ischemia of myocardium (Resolved 03/13/18) 1. ESRD. Usually dialyzes at [facility] on MWF schedule. Urgent HD today for hyperkalemia and volume OL. Recheck K in am. If K is <6, pt can be discharged and follow up at his usual appointment for dialysis at [facility] tomorrow. 2. Hyperkalemia. Due to dietary indiscretion. Used low K dialysate to dialyze today. Recheck K in am. 3. Dyspnea. Likely due to Na and volume overload. He feels better after ultrafiltration with dialysis today. More UF with dialysis tomorrow at [facility].
[2020-03-02] MEDS: Carvedilol 25 MG Tablet PO (22:22)
[2020-03-03 00:41] VITALS: BP 121/92; PULSE 102; RESP 28; TEMP 36.6; O2SAT 100
[2020-03-03 03:00] VITALS: PULSE 93
[2020-03-03 04:40] VITALS: BP 111/82; PULSE 82; RESP 24; TEMP 36.7; O2SAT 100
[2020-03-03 07:00] VITALS: PULSE 73
[2020-03-03 07:06] LABS: Absolute Neutrophil Count 8.5 X10^3/uL (2.0-7.7); Basophil# 0.08 X10^3/uL; Basophil% 0.7 % (0-1); Eosinophil# 0.24 X10^3/uL; Eosinophils% 2.2 % (0-5); Hematocrit 36.3 % (40-54); Hemoglobin 11.2 g/dL (13.0-16.5); Lymphocyte % 11.8 % (19-41); Mean Corp Hgb Conc 30.9 g/dL (32-36); Mean Corpuscular Hgb 33.1 pg (27.0-32.0); Mean Corpuscular Volume 107.4 fL (80-94); Mean Platelet Vol. 10.4 fl (6.2-12.0); Monocyte# 0.83 X10^3/uL; Monocyte% 7.5 % (0-10); NRBC Flagged by Analyzer 0 % (0-5); Neutrophil # 8.53 X10^3/uL (2.7-7.7); Neutrophil % 77.4 % (47-70); Platelet Count 180 K/mm3 (150-450); RBC Distribution Width CV 14.7 % (11.6-14.6); RBC Distribution Width SD 57.7 fl (35.1-43.9); Red Blood Count 3.38 M/mm3 (4.6-6.2)
[2020-03-03 07:46] LABS: Anion Gap 11 (5-15); BUN 59 mg/dL (7-18); BUN/Creat Ratio 7.3 RATIO (10-20); Calcium,Total 8.8 mg/dL (8.5-10.1); Chloride 98 mmol/L (98-107); Creatinine, Serum 8.06 mg/dL (0.70-1.30); EST Glomerular Filtration Rate 8 mL/min (>60); Est Glom Filt Rate - Afr Amer 9 mL/min (>60); Glucose 96 mg/dL (74-106); Potassium 6.1 mmol/L (3.5-5.1); Sodium Level 135 mmol/L (136-145)
[2020-03-03 08:23] VITALS: BP 111/86; PULSE 83; RESP 18; TEMP 36.1; O2SAT 100
[2020-03-03] MEDS: Carvedilol 25 MG Tablet PO (08:33)
--- NOTE | 2020-03-03 09:39 | PCM.PN.REN ---
Patient Problems: Active and Suspected Problems (Last Reviewed 03/31/18 @ 11:[address] Romeo Baeza MD) Hyperkalemia (Acute) Dyspnea (Acute) Subjective: No acute complaints going to be discharged today and go to his regular unit for HD - Physical Exam Vitals/I&O's: Vital Signs Temp Pulse Resp BP Pulse Ox 96.9 F L 83 18 111/86 H 100 03/03/20 08:23 03/03/20 08:23 03/03/20 08:23 03/03/20 08:23 03/03/20 08:23 Oxygen Flow Rate (L/min) 3 Oxygen Delivery Method Room Air Weight: 98.5 kg Body Mass Index (BMI) 31.9 Intake and Output for Last 24 Hours 03/01/20 03/02/20 03/03/20 23:59 23:59 23:59 Intake Total 1034.05 / 1034.05 Output Total 1500 / 1500 Balance -465.95 / -465.95 General: Alert, Oriented x3 HEENT: Atraumatic Oral: Moist Mucosa Neck: Supple, No JVD Lungs: Clear to auscultation, Normal air movement, No rhonchi, No wheeze Cardiovascular: Regular rate, Regular Rhythm, Normal S1, Normal S2 Abdomen: Bowel Sounds Present, Soft, Non Tender Extremities: No clubbing, No cyanosis, No edema Skin: No rashes Musculoskeletal: No Tenderness to Palpation of Joints or Extremities Neurological: Cranial nerves II-XII grossly intact, Neuro grossly intact Psych/Mental Status: Normal Affect Laboratory Results 03/02/20 09:20: Sodium 137, Potassium 8.1 H*, Chloride 102, Carbon Dioxide 28.0, Anion Gap 7, BUN 81 H, Creatinine 10.50 H*, Estim Creat Clear Calc 8.48, Est GFR (MDRD) Af Amer 7 L, Est GFR (MDRD) Non-Af 6 L, BUN/Creatinine Ratio 7.7 L, Glucose 151 H, Calcium 8.3 L, Troponin I 0.124 H 03/02/20 09:20: B-Natriuretic Peptide 2527.9 H 03/02/20 09:20: D-Dimer Quant (PE/DVT) 1.00 H* 03/03/20 06:40: WBC 11.0, RBC 3.38 L, Hgb 11.2 L, Hct 36.3 L, MCV 107.4 H, MCH 33.1 H, MCHC 30.9 L, RDW Std Deviation 57.7 H, RDW Coeff of Rosa Maria 14.7 H, Plt Count 180, MPV 10.4, Immature Gran % (Auto) 0.400, Neut % (Auto) 77.4 H, Lymph % (Auto) 11.8 L, [place] % (Auto) 7.5, Eos % (Auto) 2.2, Baso % (Auto) 0.7, Absolute Neuts (auto) 8.5 H, Absolute Lymphs (auto) 1.30, Nucleated RBC % 0 03/03/20 06:40: Sodium 135 L, Potassium 6.1 H*, Chloride 98, Carbon Dioxide 26.0, Anion Gap 11, BUN 59 H, Creatinine 8.06 H*, Estim Creat Clear Calc 12.20, Est GFR (MDRD) Af Amer 9 L, Est GFR (MDRD) Non-Af 8 L, BUN/Creatinine Ratio 7.3 L, Glucose 96, Calcium 8.8 Current Medications Carvedilol (Carvedilol 25 Mg Tablet) 25 mg PO BID [facility] Last Admin: 03/03/20 08:33 Dose: 25 mg Documented by: Cinacalcet (Cinacalcet Hcl 30 Mg Tablet) 90 mg PO MoWeFr@1000 [facility] Last Admin: 03/03/20 08:36 Dose: Not Given Documented by: Heparin Sodium (Porcine) (Heparin 10,000 Units/10 Ml Vial) 4,200 units IV DAILY PRN PRN PRN Reason: DIALYSIS Sodium Chloride () 500 mls @ 15 mls/hr IV PRN PRN PRN Reason: Blood Transfusion Sodium Chloride () 250 mls @ 15 mls/hr IV .[id number] PRN PRN Reason: Saline Flush Sodium Chloride () 250 mls @ 15 mls/hr IV .[id number] PRN PRN Reason: Additional IVPB Infusion Sodium Chloride (0.9% Saline Lock 10 Ml Syringe) 10 - 40 ml IV UD PRN PRN Reason: SALINE FLUSH Medical Necessity - Tobacco Use Smoking Status: Former smoker Tobacco Use: Cigarettes Assessment/Plan All Active Problems (Last Reviewed 03/31/18 @ 11:[address] Romeo Baeza MD) Hyperkalemia (Acute) Dyspnea (Acute) Diverticulitis (Acute) Elevated bilirubin (Acute) Demand ischemia of myocardium (Resolved 03/13/18) 1. ESRD. Usually dialyzes at [facility] on MWF schedule. Urgent HD 03/02 for hyperkalemia and volume OL. HD session today at his outpatient regular unit 2. Hyperkalemia. Due to dietary indiscretion. Improved with HD but remains > 6.0 this am HD today at his regular unit 3. Dyspnea. Likely due to Na and volume overload. He feels better after ultrafiltration with dialysis yesterday with 1500 cc fluid removal More UF with dialysis today
--- NOTE | 2020-03-03 10:55 | DCINST_ITS ---
- Discharge Diagnoses Current Active Problems: Current Active and Chronic Problems (Last Reviewed 03/31/18 @ 11:[address] Romeo Baeza MD) Acute on chronic renal failure (Chronic) Hyperkalemia (Acute) Dyspnea (Acute) You will use the following diet at home:: Other - resume previous diet Your food should be the consistency of: Regular Your liquids should be the consistency of: Regular/Thin Discharge Activity: Return to Normal Activity Weight Bearing Status: Full weight bearing Allergies/Adverse Reactions: Allergies Fvshwkb-Cmh-Fmt Reductase Inhibitor Allergy (Verified 03/02/20 08:49) Other Medications to take at Discharge Carvedilol 25 mg PO BID 03/12/18 Sensipar 90 mg PO DAILY 03/02/20 Primary Care Physician: Mahendra Sampson MD [Primary Care Provider] - Please follow up with your Primary Care Physician in: at regular office visit Test Results: Test results from this visit will be discussed in further detail at your follow- up appointment, if applicable.
--- NOTE | 2020-03-03 11:06 | PHA.DC.MR ---
Pharmacy Service has performed discharge medication reconciliation for this patient. No new medications at time of discharge. Medications reviewed are from previously reported home medications. Home Medications Carvedilol 25 mg PO BID 03/12/18 Sensipar 90 mg PO DAILY 03/02/20 The patient's discharge medication list was reviewed for discrepancies and discrepancies were resolved.
--- NOTE | 2020-03-03 11:08 | CASEMGMT ---
JUDY PEREZ assessment: Face to Face with patient for initial transition planning/care coordination assessment. RN CHRIS introduced self and role at [facility], pt voices understanding and consents to assessment at this time. Pt is standing in room awaiting discharge. Pt is A/Ox4 at this time and answers all questions appropriately at this time. Care providers, pharmacy, and demographics verified at this time. Presentation: SOB, fluid retention Admitting dx: Hyperkalemia, renal failure PCP: Adrián Specialists: jaleesa Rao Pharmacy: [facility] [employer] Insurance: [employer] Prescription Benefit: [employer], [employer] Living Will/HPOA: Pt states does not have LW/HPOA and declines AD info at this time. LNOK: Camryn Lehman, Living Arrangements: Pt states lives with in home and states no concerns at home at this time. Pt states is indepedent with ADL's. Transportation: Pt states drives self and states no transportation concerns at this time. DME/HHC: Pt states does not have any DME and states no need for any DME at this time. Pt states no hx of HHC or SNF in the past. Pt has OP dialysis set up at [facility] at 1600 MWF. Call to Sarthak at [facility] and states ok for pt to come at 1400 today for treatment, pt updated and states he spoke with sarthak also. Pt states no concerns with going home at time of discharge. Pt states is disabled. Pt states does not smoke cigarettes or drink ETOH at this time. Pt states no further concerns/needs at this time. CM to follow for any further discharge planning/needs. Advised pt to ask for CM if any further questions/concerns/needs arise, voices understanding. PT Goal: Home for regular OP dialysis appt Plan: Home w/ regular OP dialysis. [place] JUDY PEREZ
--- NOTE | 2020-03-03 16:44 | DS.PCM_ITS ---
Discharge Date and Diagnosis - Problem List Patient Problems: Active and Suspected Problems (Last Reviewed 03/31/18 @ 11:[address] Romeo Baeza MD) Hyperkalemia (Acute) Dyspnea (Acute) Date of Admission: 03/02/20 Date of Discharge: 03/03/20 - Primary Discharge Diagnosis Acute Problems: Active Problems (Last Reviewed 03/31/18 @ 11:[address] Romeo Baeza MD) #1 Hyperkalemia (Acute) #2 dyspnea-secondary to fluid overload #3 fluid overload secondary to end-stage renal disease on dialysis #4 end-stage renal disease on dialysis #5 troponin elevation secondary to end-stage renal disease - Secondary Discharge Diagnosis Chronic Problems: Chronic Problems (Last Reviewed 03/31/18 @ 11:[address] Romeo Baeza MD) Acute on chronic renal failure (Chronic) Hypertension (Chronic) Nonhealing surgical wound (Chronic) Abdominal. With fat layer exposed. 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 with complaints of shortness of breath, work-up in the emergency room included a chest x-ray which showed evidence of fluid overload, patient's potassium was evaded at 8.1, creatinine was elevated at 10.5. Patient's troponin was elevated at 0.124, beta natruretic peptide was elevated at 2527. Patient was admitted to PCU, he was seen in consultation by nephrology who performed dialysis that day, patient's dyspnea improved and repeat chemistry profile performed on 03/03/2020 showed his potassium to be 6.1. Patient was seen again by nephrology on that date and it was felt he would be stable for discharge with dialysis that day as an outpatient. On 03/03/2020, patient was seen and examined: On examination he appeared in good health and spirits. Vital signs as documented. Skin warm and dry and without overt rashes. Neck without JVD, neck was supple, trachea midline, thyroid was normal. Lungs clear bilaterally, normal air movement was noted. Heart exam notable for regular rhythm, normal sounds and absence of murmurs, rubs or gallops. Abdomen unremarkable and without evidence of organomegaly, masses, or abdominal aortic enlargement. Bowel sounds are present, abdomen is not distended. Extremities nonedematous, no cyanosis was noted, no clubbing was noted. Neuro: Cranial nerves II through XII are grossly intact, no focal motor deficits were noted, sensation to light touch and pinprick intact, motor exam 5/5 throughout. Psych: Patient is alert and oriented x3, he does not appear anxious or depressed, he does not appear agitated. Patient appears stable for discharge on 03/03/2020. Patient Problems: Active and Suspected Problems (Last Reviewed 03/31/18 @ 11:[address] Romeo Baeza MD) Hyperkalemia (Acute) Dyspnea (Acute) - Physical Exam Vitals/I&O's: Vital Signs Temp Pulse Resp BP Pulse Ox 96.9 F L 83 18 111/86 H 100 03/03/20 08:23 03/03/20 08:23 03/03/20 08:23 03/03/20 08:23 03/03/20 08:23 Oxygen Flow Rate (L/min) 3 Oxygen Delivery Method Room Air Weight: 98.5 kg Body Mass Index (BMI) 31.9 Intake and Output for Last 24 Hours 03/01/20 03/02/20 03/03/20 23:59 23:59 23:59 Intake Total 1034.05 / 1034.05 240 / 240 Output Total 1500 / 1500 0 / 0 Balance -465.95 / -465.95 240 / 240 Laboratory Results 03/03/20 06:40: WBC 11.0, RBC 3.38 L, Hgb 11.2 L, Hct 36.3 L, MCV 107.4 H, MCH 33.1 H, MCHC 30.9 L, RDW Std Deviation 57.7 H, RDW Coeff of [place] 14.7 H, Plt Count 180, MPV 10.4, Immature Gran % (Auto) 0.400, Neut % (Auto) 77.4 H, Lymph % (Auto) 11.8 L, [place] % (Auto) 7.5, Eos % (Auto) 2.2, Baso % (Auto) 0.7, Absolute Neuts (auto) 8.5 H, Absolute Lymphs (auto) 1.30, Nucleated RBC % 0 03/03/20 06:40: Sodium 135 L, Potassium 6.1 H*, Chloride 98, Carbon Dioxide 26.0, Anion Gap 11, BUN 59 H, Creatinine 8.06 H*, Estim Creat Clear Calc 12.20, Est GFR (MDRD) Af Amer 9 L, Est GFR (MDRD) Non-Af 8 L, BUN/Creatinine Ratio 7.3 L, Glucose 96, Calcium 8.8 Discharge Activity: Return to Normal Activity Weight Bearing Status: Full weight bearing Home Medications: Medications to take at Discharge Carvedilol 25 mg PO BID 03/12/18 Sensipar 90 mg PO DAILY 03/02/20 Primary Care Physician: Mahendra Sampson MD [Primary Care Provider] - Please follow up with your Primary Care Physician in: at regular office visit Disposition: Home Minutes spent on discharge:: 31 Patient Condition:: Stable Medical Necessity - Tobacco Use Smoking Status: Former smoker Tobacco Use: Cigarettes Meaningful Use Info Meaningful Use Diagnoses (Choose all that apply): None applicable Inpatient E&M: 84976 Disch Hosp
== END 2020-03-03 11:41 | disposition home or self-care (01) | DRG 291 ==
LOC: ED 10:58 → PCU 11:01
PROVIDERS: Admitting Provider Family Medicine; Emergency Provider Physician Assistant; PCP Family Medicine; Visit Provider Internal Medicine
DX: I13.2 Hypertensive heart and chronic kidney disease with heart failure and with stage 5 chronic kidney disease, or end stage renal disease (principal); N18.6 End stage renal disease; I50.43 Acute on chronic combined systolic (congestive) and diastolic (congestive) heart failure; N17.9 Acute kidney failure, unspecified; T86.11 Kidney transplant rejection; E87.5 Hyperkalemia; I42.9 Cardiomyopathy, unspecified; I36.1 Nonrheumatic tricuspid (valve) insufficiency; I27.21 Secondary pulmonary arterial hypertension; E66.9 Obesity, unspecified; Y83.0 Surgical operation with transplant of whole organ as the cause of abnormal reaction of the patient, or of later complication, without mention of misadventure at the time of the procedure; Z68.31 Body mass index [BMI] 31.0-31.9, adult; Z99.2 Dependence on renal dialysis; Z79.899 Other long term (current) drug therapy; Z87.891 Personal history of nicotine dependence
CPT/HCPCS: 36415; 71045; 80048; 83880; 84484; 85025; 85379; 90937; 93005; 94640; 99284; J7030; A4216; G0257; J0610

== ENCOUNTER → 2020-03-11 15:02 | Outpatient (CLI) | payer MEDICARE, MEDICAID, SELFPAY ==
[2020-03-02 11:39] VITALS: BMI 31.9
[2020-03-11 15:25] LABS: Potassium 3.5 mmol/L (3.5-5.1)
== END ==
PROVIDERS: PCP Family Medicine; Visit Provider Internal Medicine Nephrology
DX: E87.5 Hyperkalemia (principal)
CPT/HCPCS: 84132

== ENCOUNTER → 2020-06-04 10:52 | Outpatient (CLI) | payer MEDICARE, MEDICAID, SELFPAY ==
[2020-05-15 08:25] VITALS: BMI 31.5
--- NOTE | 2020-06-04 10:56 | ECHOCS_ITS ---
Reason For Study: AFIB/FLUTTER Procedure This was a 2D Doppler, Color Flow transthoracic echocardiogram. The study was technically difficult. Due to arrhythmia. Contrast injection was performed. Exam performed in department. Dr. Baeza was notified of EF. Left Ventricle Severely dilated left ventricle. The estimated ejection fraction is 12 %. There is severe global hypokinesis of the left ventricle. Right Ventricle Normal RV size. Normal systolic function. Atria The left atrium is moderately enlarged. The right atrium is mildly enlarged. Mitral Valve There is mild to moderate mitral annular calcification. Mild (1+) eccentric mitral valve insufficiency. Tricuspid Valve Normal tricuspid valve. Mild (1+) tricuspid valve insufficiency. Pulmonary artery systolic pressure is 30 mmHg. Aortic Valve Trisinus/trileaflet aortic valve. Mild focal aortic valve calcification. Pulmonic Valve Normal pulmonic valve. Great Vessels Normal aortic root. The pulmonary artery is normal size. Normal inferior vena cava. Pericardium/Pleural No pericardial effusion. Medication 22 gauge I.V. with prn adaptor inserted into right arm. Diluted definity 2.0ml given slow IV push to enhance endocardial definition. MMode/2D Measurements & Calculations LVIDd: 7.0 cm IVSd: 0.98 cm Ao root diam: 2.7 cm LVIDs: 6.4 cm LVPWd: 1.1 cm RVDd: 4.9 cm FS: 9.0 % LAV(MOD-bp): 111.3 ml LVAd ap4: 45.4 cm2 SV(MOD-sp4): 18.0 ml LAV(MOD-bp) Indexed: 51.2 ml/m2 EDV(MOD-sp4): 186.8 ml LAV(MOD-sp2): 107.3 ml EDV(sp4-el): 190.7 ml LAV(MOD-sp4): 107.6 ml LVAs ap4: 43.2 cm2 ESV(MOD-sp4): 168.8 ml ESV(sp4-el): 175.1 ml EF(MOD-sp4): 9.6 % EF(sp4-el): 8.2 % SV(sp4-el): 15.6 ml LA A4 area: 29.5 cm2 LA dimension(2D): 5.4 cm RA A4 area: 22.6 cm2 Doppler Measurements & Calculations MV E max shelia: 103.8 cm/sec Ao V2 max: 100.2 cm/sec LV V1 max: 59.7 cm/sec Ao max P.0 mmHg LV V1 max P.4 mmHg MR max shelia: 341.1 cm/sec PA V2 max: 49.4 cm/sec TR max shelia: 251.4 cm/sec MR max P.7 mmHg TR max P.3 mmHg Interpretation Summary Severely dilated left ventricle. The estimated ejection fraction is 12 %. Mild (1+) tricuspid valve insufficiency. The left atrium is moderately enlarged. Contrast injection was performed. Ordering Physician: Romeo Baeza Referring Physician: Madi Sampson Performed By: Karolyn Jackson RDCS, RVT
== END ==
PROVIDERS: PCP Family Medicine; Referring Provider Internal Medicine Cardiovascular Disease; Visit Provider Internal Medicine Cardiovascular Disease
DX: R00.2 Palpitations (principal)
CPT/HCPCS: 93306; Q9957; A4216; C8929

== ENCOUNTER → 2020-06-24 09:41 | Outpatient (CLI) | payer MEDICARE, MEDICAID, SELFPAY ==
[2020-05-15 08:25] VITALS: BMI 31.5
[2020-06-23 10:55] VITALS: BMI 31.5
--- NOTE | 2020-06-24 10:07 | ECHOTEE_ITS ---
Reason For Study: ATRIAL FIB-FLUTTER Medication LAURA probe 6VT-D (SN [id number]) passed with minimal difficulty. No complications were noted. Cetacaine Topical [place] given X4 orally. Versed 2 mg given slow IVP. Fentanyl 50 mcg given slow IVP. Performed a rapid injection of agitated mix of 9 cc saline and 1cc air to assess for atrial septal defect. Left Ventricle Normal LV size. The estimated ejection fraction is 15 %. There is severe global hypokinesis of the left ventricle. Right Ventricle Moderately dilated right ventricle. Moderately severe global right ventricular systolic dysfunction. Atria Bubble contrast study negative for right to left interatrial shunt. The left atrium is severely enlarged. There is severe sponatenous contrast in the left atrium. Fibrillatory velocities Low cm/sec. The right atrium is severely enlarged. Mitral Valve Normal mitral valve. Moderate (2+) eccentric mitral valve insufficiency. Tricuspid Valve Normal tricuspid valve. Aortic Valve Trisinus/trileaflet aortic valve. Mild focal aortic valve calcification. Pulmonic Valve Normal pulmonic valve. Vessels Normal aortic root. The pulmonary artery is normal size. Pericardium No pericardial effusion. Interpretation Summary Normal LV size. The estimated ejection fraction is 15 %. Moderately dilated right ventricle. There is severe sponatenous contrast in the left atrium. The left atrium is severely enlarged. Moderate (2+) eccentric mitral valve insufficiency. Ill-defined mass noted within left atrial appendage and cannot completely exclude a thrombus. Ordering Physician: Romeo Baeza Referring Physician: MINO YAN Performed By: Sloane Welch RDCS
[2020-06-24 10:15] LABS: Anion Gap 10 (5-15); BUN 69 mg/dL (7-18); BUN/Creat Ratio 8.5 RATIO (10-20); Calcium,Total 8.9 mg/dL (8.5-10.1); Chloride 96 mmol/L (98-107); EST Glomerular Filtration Rate 8 mL/min (>60); Est Glom Filt Rate - Afr Amer 9 mL/min (>60); Estimated Creatinine Clearance 12.02 ml/min; Glucose 130 mg/dL (74-106); Potassium 5.4 mmol/L (3.5-5.1); Sodium Level 136 mmol/L (136-145)
== END ==
PROVIDERS: PCP Family Medicine; Referring Provider Internal Medicine Cardiovascular Disease; Visit Provider Internal Medicine Cardiovascular Disease
DX: I42.8 Other cardiomyopathies (principal); I25.2 Old myocardial infarction; I27.21 Secondary pulmonary arterial hypertension; I48.91 Unspecified atrial fibrillation; I13.2 Hypertensive heart and chronic kidney disease with heart failure and with stage 5 chronic kidney disease, or end stage renal disease; I50.42 Chronic combined systolic (congestive) and diastolic (congestive) heart failure; N18.6 End stage renal disease; R00.2 Palpitations; R06.00 Dyspnea, unspecified; R42 Dizziness and giddiness; Z99.2 Dependence on renal dialysis
CPT/HCPCS: 36415; 80048; 87426; 93005; 93312; 93320; 93325; C9803; A4216

== ENCOUNTER 2020-07-10 11:39 | Emergency (ER) | payer MEDICARE, MEDICAID, SELFPAY ==
[2020-06-23 10:55] VITALS: BMI 31.5
[2020-07-10 11:45] VITALS: PULSE 100; RESP 14; RESP 16; O2SAT 97
[2020-07-10 11:47] VITALS: BP 0/0; PULSE 0; RESP 0; TEMP -17.7; TEMP 0; O2SAT 0; BMI 37.0
--- NOTE | 2020-07-10 11:50 | ED.RN ---
left a message for dr steiner on voicemail
--- NOTE | 2020-07-10 11:50 | CM.ED ---
SOCIAL WORK Code Gonzalez Responded to Gracia Roth along with Cristina Ray. Patient in ER. Emotional support provided to family. present. This worker to remain available for needs. Kirsten Ricks, SLIDE DEVELOPER, BASKETBALL SCOUT
--- NOTE | 2020-07-10 12:05 | ED.DCSUM_ITS ---
History of Present Illness Chief Complaint: CPR Informant: Family, Contract Negotiation Manager Narrative: 45-year-old male with a history of atrial fibrillation nonischemic cardiomyopathy CHF and end-stage renal disease on dialysis sustained a witnessed cardiac arrest at home. gave CPR at home and EMS was called at approximately 1103 this morning. Patient was in ventricular fibrillation. He underwent 3 shocks 300 mg of amiodarone, 5 epinephrines, 1 bicarb, 1 calcium chloride and CPR continued. He was transported to the hospital with CPR in progress. On arrival at our institution he had been down for approximately 40 minutes. EMS had placed oral airway and a left tibial IO. Portably the patient was having problems with his dialysis access and did not get his last dialysis on Tuesday. He was to have it reevaluated today. - Past Medical History (1) Atrial fibrillation with rapid ventricular response Status: Chronic (2) Chronic combined systolic and diastolic CHF (congestive heart failure) Status: Chronic (3) ESRD on dialysis Status: Chronic (4) Essential (primary) hypertension Status: Chronic (5) Non-ischemic cardiomyopathy Status: Chronic (6) Secondary pulmonary arterial hypertension Status: Chronic (7) Thrombus of atrial appendage Status: Chronic (8) History of non-ST elevation myocardial infarction (NSTEMI) Status: Resolved Comment: 03/13/18, 03/02/2020 Past Medical History - Allergies and Home Meds Allergies/Adverse Reactions: Allergies Nyxdukl-Oax-Hus Reductase Inhibitor Allergy (Verified 05/30/20 11:17) Other Primary Care Physician: Mahendra Sampson MD [Primary Care Provider] - Surgical History: noncontributory, - - History of renal transplant, surgery for ureteral rupture, AVF. Lives: Spouse/ Significant Other Smoking Status: Former smoker Drugs: None - Family History Maternal Family History: Family History (Last Reviewed 05/30/20 @ 12:[address] Romeo Baeza MD) Father Cancer Hypertension Mother Epilepsy Family History: Reports: Seizures Paternal Family History: Family History (Last Reviewed 05/30/20 @ 12:[address] Romeo Baeza MD) Father Cancer Hypertension Mother Epilepsy Family History: Reports: Cancer - Father of stomach cancer Review of Systems ROS: Unable to Obtain Physical Exam Inital Vital Signs reviewed: Yes General: Well nourished, Well developed Head: Normocephalic, Atraumatic Eyes: - - Pupils 3 mm and fixed ENT: Moist mucous membranes, No rhinorrhea Neck: Supple, Nontender Cardiovascular: - - No cardiac motion no pulse Respiratory: - - Rhonchorous breath sounds with bagged respirations Abdomen: Soft, - - Multiple healed surgical incisions with large ventral hernia Extremities: - - Left tibial IO present. No calf swelling Skin: Pallor Neurological: - - Patient is nonresponsive Diagnostic/Tx/Re-eval - Medical Decision Making With no interruption of CPR a right AC IV was placed by nursing. Additional bicarb and calcium chloride was given as well as epinephrine. These were circulated. On rhythm check the patient was in a bradycardic PEA that positio sangeetha to asystole. Epinephrine was given. I spoke with the and invited her to be does not for the resuscitation in the room. Rhythm check the patient was in a bradycardic PEA transition to asystole almost immediately with no cardiac motion. As total CPR time is about 45 minutes patient was pronounced . Adequate care time less than 12 minutes. ED Disposition - Plan for ED Patient: Disposition: Diagnosis: Cardiac arrest Referrals: Mahendra Sampsno MD [Primary Care Provider] -
--- NOTE | 2020-07-10 12:15 | ED.RN ---
left a message for dr steiner to call
--- NOTE | 2020-07-10 12:55 | ED.RN ---
PT RECEIVED APPROX 500 ML OF NORMAL SALINE
--- NOTE | 2020-07-10 12:56 | ED.RN ---
CHIDI GRAYSON RETURNED PHONE CALL. WILL ATTEMPT TO CONTACT DR LYNN
--- NOTE | 2020-07-10 13:17 | CHAPLAIN ---
Type of Pastoral Visit ___ Initial Visit ___ Follow-up Visit ___ On-call Visit ___ General Patient Visit ___ Spiritual Assessment ___ Family Conference ___ Bereavement ___ Rapid Response _x__ Code Blue ___ Other (describe below) Pastoral Care Referral From ___ Patient ___ Family ___ Nurse ___ Physician ___ Floor Molder ___ Geomagnetist _x__ Other (describe below) Sacrament/Intervention ___ Active listening ___ Anointing ___ Pentecostalism _x__ Bereavement ___ Communion ___ [place] exploration ___ ___ Life review ___ Prayer ___ Reconciliation ___ Sacrament of Sick _x__ Supportive presence ___ Wedding ___ Other (describe below) Pastoral Comments patient came in squad in full arrest; met spouse at doorway and went with her and other family member into trauma room where pronounced pt ; other family members came to hospital and offered support to all and brought them to patient room for last respects; time of silence initiated by this pigment mixer at time of ; presence and time given
== END 2020-07-10 11:53 ==
PROVIDERS: Emergency Provider Emergency Medicine; PCP Family Medicine
DX: I46.9 Cardiac arrest, cause unspecified (principal); I48.91 Unspecified atrial fibrillation; I25.2 Old myocardial infarction; I27.21 Secondary pulmonary arterial hypertension; I13.2 Hypertensive heart and chronic kidney disease with heart failure and with stage 5 chronic kidney disease, or end stage renal disease; I50.42 Chronic combined systolic (congestive) and diastolic (congestive) heart failure; N18.6 End stage renal disease; Z94.0 Kidney transplant status; Z99.2 Dependence on renal dialysis; Z87.891 Personal history of nicotine dependence
CPT/HCPCS: 92950; 99281; A4216